=== PATIENT | female | born 1950 | race Caucasian/White ===

== ENCOUNTER → 2017-03-13 | Outpatient (CLI) | payer OTHER ==
[~2017-03-13] MED LIST: CALCTAB5 PO; CYM60 PO; DVN160125 PO; EZET10TA63 PO; MULT-506 PO
[2017-03-13 13:49] LABS: BLOOD UREA NITROGEN 12 mg/dl (7-18); CALCIUM 9.8 mg/dl (8.5-10.1); CARBON DIOXIDE 30 mmol/L (21-32); CHLORIDE 104 mmol/L (98-107); CREATININE 0.93 mg/dl (0.60-1.20); GLUCOSE 88 mg/dl (70-99); SODIUM 140 mmol/L (136-145)
== END | disposition home or self-care (01) ==
LOC: C.LABPBG 08:46
PROVIDERS: ATTEND Physician Assistant
DX: Z00.00 Encounter for general adult medical examination without abnormal findings (principal)

== ENCOUNTER → 2017-07-26 | Outpatient (CLI) | payer OTHER ==
[2017-07-26 16:42] LABS: HEMATOCRIT 41.3 % (37-47); HEMOGLOBIN 14.2 g/dL (12.0-16.0); MEAN CORPUSCULAR HEMOGLOBIN 31.6 pg (25-34); MEAN CORPUSCULAR HGB CONC 34.4 g/dl (32-36); MEAN PLATELET VOLUME 9.6 fL (7.4-10.4); PLATELET COUNT 169 K/uL (130-400); RED CELL DISTRIBUTION WIDTH CV 12.8 % (11.5-14.5); RED CELL DISTRIBUTION WIDTH SD 42.9 fL (36.4-46.3); WHITE BLOOD COUNT 5.16 K/uL (4.8-10.8)
[2017-07-26 16:56] LABS: ALT/SGPT 19 U/L (12-78); AST/SGOT 16 U/L (15-37); BLOOD UREA NITROGEN 10 mg/dl (7-18); CALCIUM 9.6 mg/dl (8.5-10.1); CARBON DIOXIDE 32 mmol/L (21-32); CREATININE 0.94 mg/dl (0.60-1.20); GLUCOSE 95 mg/dl (70-99); POTASSIUM 3.3 mmol/L (3.5-5.1); SODIUM 140 mmol/L (136-145)
[2017-07-26 17:01] LABS: ALKALINE PHOSPHATASE 51 U/L (45-117); CHOLESTEROL 185 mg/dl (0-200); LDL CHOLESTEROL CALCULATED 107 mg/dl; TOTAL PROTEIN 7.2 gm/dl (6.4-8.2); TRANSFERRIN 242 mg/dl (200-360)
== END | disposition home or self-care (01) ==
LOC: C.LABPBG 13:50
PROVIDERS: ATTEND Physician Assistant
DX: Z00.00 Encounter for general adult medical examination without abnormal findings (principal); D64.9 Anemia, unspecified

== ENCOUNTER 2017-08-14 18:49 | Emergency (ER) | payer OTHER ==
[~2017-08-14] VITALS: Ht 165.1 cm; Wt 74.2 kg
[~2017-08-14 18:49] MED LIST changes: -CEPH500C PO
[2017-08-14 18:54] VITALS: TEMP 36.7; Ht 165.1 cm; Wt 74.2 kg
[2017-08-14] MEDS ORDERED: OXYMETAZOLINE HCL 0.05% NA SPR 15 ML BTL ONE (19:08)
[2017-08-14] MEDS ORDERED: SILVER NITR/POTASSIUM NITRATE APPLICATOR ONE (19:41)
[2017-08-14] MEDS ORDERED: CEPHALEXIN MONOHYDRATE 250 MG CAP PO ONE (21:15)
[2017-08-14] MEDS ORDERED: CEPHALEXIN 500MG HOME PACK 1 EA BTL PO ONE (21:15)
--- NOTE | 2017-08-14 21:45 | EMERGENCY ROOM VISIT NOTE ---
History Report prepared by Farheen: Antonietta Redmond Under the Supervision of: Dr. Nini Molina D.O. First contact with patient: 18:58 Chief Complaint: NOSE BLEED (MINOR) Stated Complaint: NOSE BLEED FOR 2HOURS- COUMADIN PT History of Present Illness The patient is a 66 year old female who presents to the Emergency Room with complaints of persistent nosebleed starting 2 hours ago. The nosebleed is on the left side. This is her second nosebleed today. She has had nosebleeds in the past, but never this severely. She is having clots and blood is going down the back of her throat. She denies any nausea, headache, dizziness, lightheadedness, chest pain, or SOB. She is on Coumadin. Her outpatient INR today was therapeutic at 2.4. She has not been blowing her nose recently. She denies any previous nasal or sinus surgery. Source of History: patient Onset: 2 hours ago Position: nose Quality: other (bleed) Timing: other (persistent) Associated Symptoms: No headache, No chest pain, No SOB, No nausea Review of Systems See HPI for pertinent positives & negatives. A total of 10 systems reviewed and were otherwise negative. Past Medical & Surgical No previous nasal or sinus surgery. Family History No pertinent family history stated. Social History Smoking Status: Never Smoker Marital Status: Occupation Status: retired Current/Historical Medications Scheduled Calcium (Caltrate), 600 MG PO DAILY Cephalexin Monohydrate (Keflex), 500 MG PO QID Duloxetine Hcl (Cymbalta *), 60 MG PO DAILY Ezetimibe (Zetia), 10 MG PO DAILY Multivitamin (Multivitamin), 1 TAB PO DAILY Valsartan/Hctz (Diovan Hct 160MG/12.5MG *), 1 TAB PO DAILY Allergies Coded Allergies: No Known Allergies (Unverified Allergy, Mild, 10/19/06) Physical Exam Vital Signs Date Time Temp Pulse Resp B/P (MAP) Pulse Ox O2 Delivery O2 Flow Rate FiO2 08/15/17 02:00 82 16 98 08/15/17 01:38 156/100 08/15/17 00:30 183/95 08/15/17 00:01 61 16 188/94 97 Room Air 08/14/17 23:30 202/93 5/2/18 22:56 63 19 205/89 97 Room Air 08/14/17 22:30 221/103 08/14/17 22:16 208/96 08/14/17 21:56 75 18 217/93 99 Room Air 08/14/17 20:28 73 18 150/94 99 08/14/17 20:27 73 18 150/94 99 Room Air 08/14/17 18:54 36.7 86 18 144/88 97 Room Air Physical Exam GENERAL: alert, well appearing, well nourished, no distress, non-toxic EYE EXAM: normal conjunctiva, PERRL and EOM's grossly intact NOSE: When patient moved tissue there was a large fresh clot, small area of active bleeding along the medial nasal mucosa on the left, right naris was clear. OROPHARYNX: no exudate, no erythema, lips, buccal mucosa, and tongue normal and mucous membranes are moist LUNGS: Clear to auscultation. Normal chest wall mechanics HEART: no murmurs, S1 normal and S2 normal ABDOMEN: abdomen soft, non-tender, normo-active bowel sounds, no masses, no rebound or guarding. SKIN: no rashes and no bruising UPPER EXTREMITIES: upper extremities are grossly normal. LOWER EXTREMITIES: No pitting edema. NEURO EXAM: Normal sensorium, cranial nerves II-XII grossly intact, normal speech, no gross weakness of arms, no gross weakness of legs. Medical Decision & Procedures Medications Administered Medications (Trade) Dose Ordered Sig/Kit Route Start Time Stop Time Status Last Admin Dose Admin Silver Nitrate/ Potassium Nitrate (Silver Nitrate Applicators) 1 appl STK-MED ONCE .ROUTE 08/14/17 19:41 08/14/17 19:42 DC 08/14/17 19:56 1 APPL Cephalexin Monohydrate (Keflex Cap) 500 mg NOW ONCE PO 08/14/17 21:15 08/14/17 21:16 DC 08/14/17 21:40 500 MG Cephalexin Monohydrate (Keflex 500MG Home Pack) 1 homepack NOW ONCE PO 08/14/17 21:15 08/14/17 21:16 DC 08/14/17 21:41 1 HOMEPACK Acetaminophen (Tylenol Tab) 650 mg NOW STAT PO 08/14/17 22:46 08/14/17 22:47 DC 08/14/17 22:53 650 MG Lorazepam (Ativan Tab) 1 mg NOW STAT SL 08/14/17 23:32 08/14/17 23:33 DC 08/14/17 23:36 1 MG Ondansetron HCl (Zofran Odt) 4 mg ONE ONCE PO 08/15/17 00:15 08/15/17 00:16 DC 08/15/17 00:27 4 MG Acetaminophen/ Codeine Phosphate (Tylenol w/ Codeine #3 Tab) 1 tab NOW ONCE PO 08/15/17 02:00 08/15/17 02:01 DC 08/15/17 01:55 1 TAB Acetaminophen/ Codeine Phosphate (TYLENOL W/ CODEINE #3 Home Pack) 1 homepack UD ONCE PO 08/15/17 02:00 08/15/17 02:01 DC 08/15/17 01:55 1 HOMEPACK Procedure Anterior Nasal Packing, Rapid rhino Indication: persistent epistaxis Verbal consent obtained. Risks and benefits were explained with the usual customary discussion. A time out was taken. Clots were removed with suction. The left naris was prepped with Afrin and lidocaine. A 5.5-cm nasal balloon was placed in a standard fashion. Balloon inflated, not to maximum due to patient comfort. The patient tolerated this well. Hemostasis was achieved. No complications. ED Course 1901: The patient was evaluated in room A12B. A complete history and physical exam was performed. 1: I administered Afrin and applied nasal clamp. 1936: I reevaluated the patient. She still had a small anterior bleed. I used silver nitrate stick to cauterize and replaced clamp. 2029: Rapid rhino was placed according to the procedure note above. 2114: Keflex 500 mg 1 homepack PO, Keflex Cap 500 mg PO. 4: I reevaluated the patient. She is not having anymore bleeding. Pt will be discharged. 8: I reevaluated the patient. She is having some oozing again after getting up to use the bathroom at discharge. 5: I put a little more air into the balloon. She is no longer bleeding. 2246: Acetaminophen 650 mg PO. 2332: Ativan Tab 1 mg SL. 0015: Zofran Odt 4 mg PO. 0052: No recurrent bleeding. Pt resting. BP still elevated. Medical Decision Differential diagnosis: Etiologies such as anterior epistaxis, coagulopathy, traumatic injury, fracture , septal hematoma, posterior epistaxis as well as other pathologies were entertained. Patient with underlying history of anxiety, and after placement of nasal packing , her level of anxiety and subsequently her blood pressure increased dramatically. Patient had no vomiting, no chest pain, trouble breathing. Patient did note a sense of pressure in the left side of the nose and left face , likely secondary to her packing. Balloon initially inflated to the level of patient comfort, however upon rebleed, 1 mL of additional air was added. This seemed to help provide additional tamponade stop the bleeding. Patient continued to have anxiety regarding going home with the packing in and following up with ENT in the office. Following of this patient had slight nausea however no vomiting. Was given a dose of Zofran which helped. Patient was started on first dose of Keflex. Of note her niece stated that she had not had anything to eat or drink for several hours and she feels this may be extruding to the nausea. Patient offered anxiolytic which she initially refused , however given persistence of symptoms, she subsequently was agreeable and requested this. Patient allowed to rest following administration of Ativan. Patient's blood pressure ultimately improved following rest administration of Ativan. 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 Discussed symptoms to watch and return for including but not limited to recurrent bleeding, worsening headache, vomiting, dizziness, vision changes, trouble breathing, chest pain, she verbalized understanding was agreeable with plan. Patient well-appearing time of discharge, ambulating with a steady gait, tolerating sips of p.o. I do not suspect hypertensive urgency/emergency, feel her blood pressure secondary to increased anxiety which she has a baseline which was escalated by situation this evening and ultimately by placement of packing. Medication Reconcilliation Current Medication List: was personally reviewed by me Blood Pressure Screening Patient's blood pressure: Elevated blood pressure Blood pressure disposition: Referred to PCP Impression Primary Impression: Epistaxis Additional Impression: Anticoagulated on Coumadin Scribe Attestation The scribe's documentation has been prepared under my direction and personally reviewed by me in its entirety. I confirm that the note above accurately reflects all work, treatment, procedures, and medical decision making performed by me. Departure Information Dispostion Home / Self-Care Prescriptions Cephalexin Monohydrate (Keflex) 500 Mg Cap 500 MG PO QID, #28 CAP Prov: Nini Molina, 08/14/17 Referrals Cecelia Paulson DO (PCP) Patient Instructions My [facility] Additional Instructions Please take the antibiotic as prescribed until you see the ear nose and throat doctor and they remove the packing. Please continue your regular medications including your blood thinner as prescribed. You may eat and drink normally. You may otherwise perform normal activities. Please call Dr. Xie's office first thing in the morning to schedule an appointment for follow-up. Please tell them you were seen in the emergency room department tonight. Problem Qualifiers
[2017-08-14] MEDS ORDERED: CEPH500C PO (21:46)
[2017-08-14] MEDS ORDERED: ACETAMINOPHEN 325 MG TAB PO STA (22:46)
[2017-08-14] MEDS ORDERED: LORAZEPAM 1 MG TAB SL STA (23:32)
[2017-08-15] MEDS ORDERED: ONDANSETRON 4MG OD TAB PO ONE (00:15)
[2017-08-15 01:38] VITALS: BP 156/100
[2017-08-15 02:00] VITALS: PULSE 82; O2SAT 98
[2017-08-15] MEDS ORDERED: ACETAMINOPHEN/CODEINE 300/30MG TAB PO ONE (02:00)
[2017-08-15] MEDS ORDERED: TYLENOL #3 HOME PACK PO ONE (02:00)
== END 2017-08-15 02:00 | disposition home or self-care (01) ==
LOC: C.EDB 18:51 → C.EDA 08-15 02:00
DX: R04.0 Epistaxis (principal); Z79.899 Other long term (current) drug therapy; Z79.01 Long term (current) use of anticoagulants

== ENCOUNTER → 2017-08-14 | Outpatient (CLI) | payer OTHER ==
[~2017-08-14] MED LIST changes: +CEPH500C PO
[2017-08-14 17:16] LABS: BLOOD UREA NITROGEN 16 mg/dl (7-18); CALCIUM 10.4 mg/dl (8.5-10.1); CARBON DIOXIDE 29 mmol/L (21-32); CREATININE 0.92 mg/dl (0.60-1.20); GLUCOSE 87 mg/dl (70-99); SODIUM 142 mmol/L (136-145)
== END | disposition home or self-care (01) ==
LOC: C.LABPBG 13:18
PROVIDERS: ATTEND Physician Assistant
DX: E87.6 Hypokalemia (principal)

== ENCOUNTER 2017-09-06 08:48 | Emergency (ER) | payer OTHER ==
[~2017-09-06 08:48] MED LIST changes: +CEPH500C PO
[2017-09-06] MEDS ORDERED: OXYMETAZOLINE HCL 0.05% NA SPR 15 ML BTL ONE (08:54)
--- NOTE | 2017-09-06 09:08 | EMERGENCY ROOM VISIT NOTE ---
History Report prepared by Farheen: Collin Kelley Under the Supervision of: Dr. Joshua Steven M.D. First contact with patient: 08:58 Chief Complaint: NOSE BLEED (MINOR) Stated Complaint: NOSE BLEED History of Present Illness The patient is a 66 year old female who presents to the Emergency Room with complaints of constant nosebleed from the left nostril beginning two hours ago. The patient states she was not doing anything specific when her nose started bleeding, and it was sudden. She reports it has not slowed down. The patient notes she had similar symptoms a few weeks ago. She states she is still on Coumadin, and her last Coumadin level was above 2.0. Source of History: patient Onset: 2 hours ago Position: nose Quality: other (bleeding) Timing: constant Review of Systems See HPI for pertinent positives and negatives. A total of ten systems were reviewed and were otherwise negative. Past Medical & Surgical Medical Problems: (1) DVT (deep venous thrombosis) (2) Pulmonary embolism Family History Heart disease Hypertension Social History Smoking Status: Never Smoker Marital Status: Housing Status: lives alone Occupation Status: retired Current/Historical Medications Scheduled Amoxicillin & Pot Clavulanate (Augmentin 875-125 mg), 875 MG PO BID Ascorbic Acid (Vitamin C), 1,000 MG PO DAILY Calcium Carbonate (Caltrate 600), 1 TAB PO DAILY Duloxetine HCl (Duloxetine HCl), 40 MG PO DAILY Multivitamin (Multivitamin), 1 TAB PO DAILY Warfarin Sod (Jantoven), 2.5 MG PO 5XWK Warfarin Sod (Jantoven), 5 MG PO 2XWK Allergies Coded Allergies: No Known Allergies (Unverified , 09/06/17) Physical Exam Vital Signs Date Time Temp Pulse Resp B/P (MAP) Pulse Ox O2 Delivery O2 Flow Rate FiO2 09/06/17 13:55 67 16 184/107 97 09/06/17 12:57 73 16 159/112 97 Room Air 09/06/17 11:14 86 16 178/83 98 Room Air 09/06/17 10:34 80 16 194/111 100 Room Air 09/06/17 09:10 36.7 09/06/17 08:55 86 20 172/98 98 Room Air Physical Exam Physical Exam GENERAL: She is oriented to person, place, and time. She appears well- developed and well-nourished. She does not appear distressed. ____ HENT: Exam performed. Head: Normocephalic and atraumatic. Right Ear: External ear normal. No mastoid tenderness. Left Ear: External ear normal. No mastoid tenderness. Mouth/Throat: The oropharynx is clear and moist. No trismus in the jaw. No dental abscesses or uvula swelling. No oropharyngeal exudate or tonsillar abscesses. - Nose: Bleeding from the left nares.____ EYES: Conjunctivae and EOM are normal. Pupils are equal, round, and reactive to light. Right eye exhibits no discharge. Left eye exhibits no discharge. No scleral icterus. ____ NECK: Normal range of motion. Neck supple. No JVD present. No spinous process tenderness present. No carotid bruit present. No rigidity. No tracheal deviation and normal range of motion present. No Brudzinski's sign and no Kernig 's sign noted. ____ CV: Normal rate, regular rhythm, normal heart sounds and intact distal pulses. There is no peripheral edema. Palpable radial pulses bue. ____ PULM/CHEST: Effort normal and breath sounds normal. No respiratory distress. No stridor. She has no wheezes. She has no rales. Chest Wall: She exhibits no tenderness. ____ ABD: The abdomen is soft. Bowel sounds are normal. She has no distension. No mass is present. There is no tenderness. There is no rebound, no guarding, no Banerjee's sign and no tenderness at McBurney's point. Rovsig negative MUSC/SKEL: Normal range of motion. There is no peripheral edema, tenderness or deformity. LYMPH: No cervical adenopathy. ____ NEURO: She is alert and oriented to person, place, and time. She has normal strength. No cranial nerve deficit or sensory deficit. Coordination and gait normal. GCS eye subscore is 4. GCS verbal subscore is 5. GCS motor subscore is 6. Cerebellar tests wnl. ____ SKIN: Skin is warm and dry. She is not diaphoretic. ____ PSYCH: She has a normal mood and affect. Her behavior is normal. Judgment and thought content normal. ____ Medical Decision & Procedures Laboratory Results 09/06/17 12:47 Red Blood Count 4.26, Mean Corpuscular Volume 94.1, Mean Corpuscular Hemoglobin 32.2, Mean Corpuscular Hemoglobin Concent 34.2, Mean Platelet Volume 8.8, Neutrophils (%) (Auto) 81.6, Lymphocytes (%) (Auto) 12.7, Monocytes (%) (Auto) 4.9, Eosinophils (%) (Auto) 0.6, Basophils (%) (Auto) 0.1, Neutrophils # (Auto) 7.05, Lymphocytes # (Auto) 1.10, Monocytes # (Auto) 0.42, Eosinophils # (Auto) 0.05, Basophils # (Auto) 0.01 Test 09/06/17 09:07 09/06/17 12:47 Prothrombin Time 30.4 SECONDS (9.0-12.0) Prothromb Time International Ratio 3.0 (0.9-1.1) White Blood Count 8.64 K/uL (4.8-10.8) Red Blood Count 4.26 M/uL (4.2-5.4) Hemoglobin 13.7 g/dL (12.0-16.0) Hematocrit 40.1 % (37-47) Mean Corpuscular Volume 94.1 fL (80-100) Mean Corpuscular Hemoglobin 32.2 pg (25-34) Mean Corpuscular Hemoglobin Concent 34.2 g/dl (32-36) Platelet Count 178 K/uL (130-400) Mean Platelet Volume 8.8 fL (7.4-10.4) Neutrophils (%) (Auto) 81.6 % Lymphocytes (%) (Auto) 12.7 % Monocytes (%) (Auto) 4.9 % Eosinophils (%) (Auto) 0.6 % Basophils (%) (Auto) 0.1 % Neutrophils # (Auto) 7.05 K/uL (1.4-6.5) Lymphocytes # (Auto) 1.10 K/uL (1.2-3.4) Monocytes # (Auto) 0.42 K/uL (0.11-0.59) Eosinophils # (Auto) 0.05 K/uL (0-0.5) Basophils # (Auto) 0.01 K/uL (0-0.2) RDW Standard Deviation 45.4 fL (36.4-46.3) RDW Coefficient of Variation 13.2 % (11.5-14.5) Immature Granulocyte % (Auto) 0.1 % Immature Granulocyte # (Auto) 0.01 K/uL (0.00-0.02) Laboratory results reviewed by me Medications Administered Medications (Trade) Dose Ordered Sig/Kit Route Start Time Stop Time Status Last Admin Dose Admin Oxymetazoline HCl (Afrin 0.05% Nasal [place]) 75 sprays STK-MED ONCE .ROUTE 09/06/17 08:54 09/06/17 08:55 DC 09/06/17 08:54 2 SPRAYS Ondansetron HCl (Zofran Odt) 4 mg ONE ONCE PO 09/06/17 13:00 09/06/17 13:01 DC 09/06/17 13:03 4 MG Phytonadione (Mephyton Tab) 5 mg NOW STAT PO 09/06/17 13:25 09/06/17 13:27 DC 09/06/17 13:53 5 MG Acetaminophen (Tylenol Tab) 1,000 mg NOW STAT PO 09/06/17 13:43 09/06/17 13:44 DC 09/06/17 13:53 1,000 MG Procedure Anterior Nasal Packing Indication: Epistaxis Verbal consent obtained. Risks and benefits were explained with the usual customary discussion. A time out was taken. Clots were removed with suction. The L naris was prepped with Afrin and lidocaine. A 5 cm Merocel was placed in a standard fashion. The patient tolerated this well. Hemostasis was achieved. No complications. Anterior Nasal Packing Indication: Epistaxis Verbal consent obtained. Risks and benefits were explained with the usual customary discussion. A time out was taken. Clots were removed with suction. The L naris was prepped. A 7.5 cm Rapid Rhino was placed in a standard fashion. The patient tolerated this well. Hemostasis was achieved. No complications. ED Course 0900: The patient was evaluated in room A11B. A complete history and physical exam was performed. Afrin nasal spray was applied and direct pressure was applied to the left nare by the patient. Review of EMR states the patient was here on August 14. The patient had to have a rapid rhino place, and she is currently on Coumadin. 0919: I reevaluated the patient, and she is still bleeding from her left anterior naris. 0924: I inserted a pledget soaked in lidocaine and epinephrine into the patient' s left naris. 0958: The patient is still bleeding. The TXA pledget replaced the lidocaine and epinephrine pledget. 1039: Upon reevaluation, the patient is still bleeding after the TXA pledget. An anterior nasal packing Merocel was placed. 1115: I reevaluated the patient. Her bleeding has stopped after the Merocel tamponade. She tolerated PO. 1158:Now she feels blood is coming out of her right side and going down her throat. 1201: I paged ENT. 1221: The patient's contralateral naris is bleeding with mild blood in the posterior oropharynx. I took out the Merocel and put in a 7.5cm rapid rhino. I am waiting for ENT to call me back. 1232: Dr. Xie's nurse took a report and said he should call back around 1300. 1247: Dr. Xie's office called back and requested I contact the on-call ENT physician. 1248: I discussed the patient's case with Dr. Tay, ENT. He suggested I wait another 20 minutes and then call him back if she is still bleeding after the placement of the 7.5cm rapid rhino. 1300: Ordered Ondansetron HCl 4mg PO 1324: I discussed the patient's case with Dr. Paulson, pt's PCP. She is okay with the patient receiving Vitamin K and holding her Coumadin until Saturday. Patient states she feels so the bleeding controlled with the rapid Rhino. 1325: Ordered Phytonadione 5mg PO 1342: I spoke with Dr. Tay again. I updated him about how the patient's bleeding stopped. He agrees with the treatment plan. 1343: Ordered Acetaminophen 1000mg PO 1351: I reevaluated the patient. The patient's bleeding from the left and right near her resolved. She no longer feels like any blood is in her throat. On exam, no blood in the posterior pharynx. Patient was discharged with prescription antibiotics due to nasal packing. Patient was instructed not take her Coumadin until Saturday, she and family at bedside verbalized agreement and understanding. DISCHARGE - Plan of care discussed with patient and questions answered. The patient was given both verbal and printed discharge instructions. The patient verbalized understanding and ability to comply. The patient is to seek outpatient follow up as noted in the discharge instructions. The patient verbalized understanding and ability to comply. The patient is discharged in stable condition. The patient was instructed to return for worsening symptoms. Medical Decision 0900: The patient was evaluated in room A11B. A complete history and physical exam was performed. Afrin nasal spray was applied and direct pressure was applied to the left nare by the patient. Review of EMR states the patient was here on August 14. The patient had to have a rapid rhino place, and she is currently on Coumadin. 19: I reevaluated the patient, and she is still bleeding from her left anterior naris. 24: I inserted a pledget soaked in lidocaine and epinephrine into the patient' s left naris. 0958: The patient is still bleeding. The TXA pledget replaced the lidocaine and epinephrine pledget. 1039: Upon reevaluation, the patient is still bleeding after the TXA pledget. An anterior nasal packing Merocel was placed. 1115: I reevaluated the patient. Her bleeding has stopped after the Merocel tamponade. She tolerated PO. 1158:Now she feels blood is coming out of her right side and going down her throat. 1201: I paged ENT. 1221: The patient's contralateral naris is bleeding with mild blood in the posterior oropharynx. I took out the Merocel and put in a 7.5cm rapid rhino. I am waiting for ENT to call me back. 1232: Dr. Xie's nurse took a report and said he should call back around 1300. 1247: Dr. Xie's office called back and requested I contact the on-call ENT physician. 1248: I discussed the patient's case with Dr. Tay, ENT. He suggested I wait another 20 minutes and then call him back if she is still bleeding after the placement of the 7.5cm rapid rhino. 1300: Ordered Ondansetron HCl 4mg PO 1324: I discussed the patient's case with Dr. Paulson pt's PCP. She is okay with the patient receiving Vitamin K and holding her Coumadin until Saturday. Patient states she feels so the bleeding controlled with the rapid Rhino. 1325: Ordered Phytonadione 5mg PO 1342: I spoke with Dr. Tay again. I updated him about how the patient's bleeding stopped. He agrees with the treatment plan. 1343: Ordered Acetaminophen 1000mg PO 1351: I reevaluated the patient. The patient's bleeding from the left and right near her resolved. She no longer feels like any blood is in her throat. On exam, no blood in the posterior pharynx. Patient was discharged with prescription antibiotics due to nasal packing. Patient was instructed not take her Coumadin until Saturday, she and family at bedside verbalized agreement and understanding. DISCHARGE - Plan of care discussed with patient and questions answered. The patient was given both verbal and printed discharge instructions. The patient verbalized understanding and ability to comply. The patient is to seek outpatient follow up as noted in the discharge instructions. The patient verbalized understanding and ability to comply. The patient is discharged in stable condition. The patient was instructed to return for worsening symptoms. Medication Reconcilliation Current Medication List: was personally reviewed by me Blood Pressure Screening Patient's blood pressure: Elevated blood pressure Blood pressure disposition: Referred to PCP Consults Time Called: 1247 Consulting Physician: Dr. Tay ENT Returned Call: 1246 I discussed the patient's case with JOYCE Garcias. He suggested I wait another 20 minutes and then call him back if she is still bleeding after the placement of the 7.5cm rapid rhino. 1342: I spoke with Dr. Tay again. I updated him about how the patient's bleeding stopped. He agrees with the treatment plan. Additional Consults: Time Called: 1311 Consulted Physician: Dr. Paulson, pt's PCP Returned Call: 1322 Additional Comments: I discussed the patient's case with Dr. Paulson, pt's PCP. She is okay with the patient receiving Vitamin K and holding her Coumadin until Saturday. Impression Primary Impression: Epistaxis Scribe Attestation The scribe's documentation has been prepared under my direction and personally reviewed by me in its entirety. I confirm that the note above accurately reflects all work, treatment, procedures, and medical decision making performed by me. The chart was completed utilizing [employer] Speech voice recognition software. Grammatical errors, random word insertions, pronoun errors, and incomplete sentences are an occasional consequence of this system due to software limitations, ambient noise, and hardware issues. Any formal questions or concerns about the content, text, or information contained within the body of this dictation should be directly addressed to the physician for clarification. Departure Information Dispostion Home / Self-Care Prescriptions Amoxicillin & Pot Clavulanate (Augmentin 875-125 mg) 1 Tab Tab 875 MG PO BID for 7 Days, #14 TAB Prov: Joshua Steven M.D. 09/06/17 Referrals Cecelia Paulson DO (PCP) Forms HOME CARE DOCUMENTATION FORM, IMPORTANT VISIT INFORMATION, WORK / SCHOOL INSTRUCTIONS Patient Instructions ED Nosebleed, [facility] Additional Instructions Return to the emergency department if you develop difficulty swallowing, your epistaxis recurs, difficulty breathing, or fever greater than 100.4. Hold off on taking your Coumadin until Saturday, restart Coumadin as normal on Saturday
[2017-09-06 09:10] VITALS: TEMP 36.7
[2017-09-06 09:27] LABS: HEMATOCRIT 41.2 % (37-47); HEMOGLOBIN 14.1 g/dL (12.0-16.0)
[2017-09-06] MEDS ORDERED: LIDOCAINE/EPINEPHRINE 1% 20 ML VIAL INFIL ONE (09:30)
[2017-09-06] MEDS ORDERED: TRANEXAMIC ACID 100 MG/ML 10 ML AMP ONE (09:58)
[2017-09-06] MEDS ORDERED: CALCTAB5 PO (10:55)
[2017-09-06] MEDS ORDERED: ASCO10003 PO (10:55)
[2017-09-06] MEDS ORDERED: WARF2.5T8 PO ×2 (10:55)
[2017-09-06] MEDS ORDERED: DULO-76 PO (10:55)
[2017-09-06] MEDS ORDERED: AMOX875T PO (11:58)
[2017-09-06 12:54] LABS: BASO % 0.1 %; BASO ABS # 0.01 K/uL (0-0.2); EOS % 0.6 %; EOS ABS # 0.05 K/uL (0-0.5); HEMATOCRIT 40.1 % (37-47); HEMOGLOBIN 13.7 g/dL (12.0-16.0); IG# 0.01 K/uL (0.00-0.02); LYMPH % 12.7 %; MEAN CELL VOLUME 94.1 fL (80-100); MEAN CORPUSCULAR HEMOGLOBIN 32.2 pg (25-34); MEAN CORPUSCULAR HGB CONC 34.2 g/dl (32-36); MEAN PLATELET VOLUME 8.8 fL (7.4-10.4); MONO % 4.9 %; MONO ABS # 0.42 K/uL (0.11-0.59); NEUT % 81.6 %; NEUT ABS # 7.05 K/uL (1.4-6.5); PLATELET COUNT 178 K/uL (130-400); RED CELL DISTRIBUTION WIDTH CV 13.2 % (11.5-14.5); RED CELL DISTRIBUTION WIDTH SD 45.4 fL (36.4-46.3); WHITE BLOOD COUNT 8.64 K/uL (4.8-10.8)
[2017-09-06] MEDS ORDERED: ONDANSETRON 4MG OD TAB PO ONE (13:00)
[2017-09-06] MEDS ORDERED: PHYTONADIONE 5 MG TAB PO STA (13:25)
[2017-09-06] MEDS ORDERED: ACETAMINOPHEN 500 MG TAB PO STA (13:43)
[2017-09-06 13:55] VITALS: BP 184/107; PULSE 67; O2SAT 97
[2017-09-07] MEDS ORDERED: TRANEXAMIC ACID INJ 1,000 MG in SODIUM CHLORIDE 0.9% 100ML 100 ML TOP SCH (06:00)
== END 2017-09-06 13:55 | disposition home or self-care (01) ==
LOC: C.EDB 08:49 → C.EDA 13:55
DX: R04.0 Epistaxis (principal); Z79.01 Long term (current) use of anticoagulants; Z51.81 Encounter for therapeutic drug level monitoring

== ENCOUNTER → 2017-10-31 | Outpatient (CLI) | payer OTHER ==
[~2017-10-31] MED LIST changes: +ASCO10003 PO; -CEPH500C PO; -CYM60 PO; +DULO-76 PO; -DVN160125 PO; -EZET10TA63 PO; +WARF2.5T8 PO
[2017-10-31 17:12] LABS: BLOOD UREA NITROGEN 19 mg/dl (7-18); CALCIUM 9.6 mg/dl (8.5-10.1); CARBON DIOXIDE 32 mmol/L (21-32); GLUCOSE 76 mg/dl (70-99); POTASSIUM 3.6 mmol/L (3.5-5.1); SODIUM 141 mmol/L (136-145)
== END | disposition home or self-care (01) ==
LOC: C.LABPBG 13:20
PROVIDERS: ATTEND Family Medicine
DX: I10 Essential (primary) hypertension (principal)

== ENCOUNTER 2020-02-14 17:25 | Observation (INO) ==
--- NOTE | 2020-02-14 17:48 | Emergency Department Note ---
History of Present Illness General Chief complaint: Leg Weakness, Bilateral Stated complaint: POSSIBLY LOW POTASSIUM,LEG WEEKNESS Time Seen by Provider: 02/14/20 17:32 Source: patient and family Mode of arrival: ambulatory Limitations: no limitations History of Present Illness Provider complaint: Weakness, palpitations Onset (ago): week(s) 1 Location: chest and lower extremity Radiation: non-radiation Severity: moderate and similar to prior episodes Pain Consistency: + constant Relieved By: + none Exacerbated By: + movement Associated symptoms: + headaches, + nausea/vomiting, + shortness of breath and + weakness; no chest pain, no cough, no diaphoresis, no fever/chills, no loss of appetite and no syncope Treatments prior to arrival: none This is a 69-year-old female presents the emergency department complaining of 1 week of increasing weakness, mostly in the lower extremities as well as palpitations. Patient states this feels similar to when she has had low potassium previously. Patient states she notices the symptoms more with exertion that she feels weaker, develops a sense of racing heart, develops slight shortness of breath, and if she persists feels as though she may pass out. Patient states the symptoms get better when she sits down. Patient states she has had low potassium 3-4 times in the past with similar symptoms, although no one has given her clear indication of as to why. Patient denies any change in medications or diet, denies any history of kidney problems. Patient states she is eating and drinking normally. Patient denies any falls or trauma. Patient states she does frequently have loose stools/diarrhea. She denies that anyone had ever thought her low potassium could be related to this. Patient denies any fevers or chills, cough or cold symptoms, denies any sick contacts or exposure to coronavirus. Patient's family at bedside states she did seem slightly confused earlier today which is uncharacteristic of her prior episodes. Pt seen during a time of high acuity and national emergency pandemic while wearing PPE. Home Medications Home Medications Medication Instructions Recorded Confirmed Type duloxetine 60 mg capsule,delayed 60 mg PO QAM 03/06/19 02/14/20 History release famotidine 20 mg tablet 20 mg PO BID tab 03/06/19 02/14/20 History lorazepam 0.5 mg tablet 0.5 mg PO DAILY PRN #30 tab 05/28/19 02/14/20 Rx Calcium 600 + D(3) 1 cap PO BID 06/22/19 02/14/20 History losartan 100 mg tablet 100 mg PO DAILY #90 tab 12/11/19 02/14/20 Rx amlodipine 5 mg tablet 5 mg PO DAILY #90 tab 01/07/20 02/14/20 Rx potassium gluconate 595 mg PO DAILY 02/14/20 02/14/20 History warfarin 2.5 mg PO [id number] 02/14/20 02/16/20 History warfarin 5 mg PO WK 02/14/20 02/16/20 History ferrous sulfate 325 mg PO DAILY #30 tab 02/16/20 Rx hydrocortisone acetate [Anusol-HC] 25 mg AL BID 7 Days #24 ea 02/16/20 Rx Allergies Allergy/AdvReac Type Severity Reaction Status Date / Time No Known Drug Allergies Allergy Verified 02/16/20 14:35 Past Med/Surg History Medical History Acid reflux Anemia Anxiety Benign essential hypertension Chronic anticoagulation Depression Gallstones History of blood clots History of deep vein thrombosis (DVT) of lower extremity (06/2019) RLE Hyperlipidemia Surgical History H/O section History of small bowel obstruction (2008) Hx of breast reduction, elective (2011) Hx of hysterectomy (1991) S/P cataract extraction (12/2019) b/l eyes Family History Mother Cardiac disorder Hypertension Myocardial infarction Heart disease Grandmother Breast cancer Cancer Father Myocardial infarction Hypertension Heart disease Denies family history of Ovarian cancer Prostate cancer Colorectal cancer Social History Smoking Status: Unknown if ever smoked Second Hand Exposure: No; Hx Alcohol Use: No Hx Substance Use: No Preferred Language: Montenegrin Communication Ability: Effective Visual Impairment: No Limitations Hearing Ability: Normal Vegetable Worker Required: No Beliefs That Will Affect Care: None marital status: / Current Living Situation: Family current occupational status: retired Feels Safe at Home: Yes Childhood Exposure to Second-Hand Smoke: No caffeine: Yes (Coffee 1 cup per day. Tea x 2 cups per day.) during the past year weight has: remained stable Dental Care, Regularly: Yes Physical Activity Frequency: 1-2 Times per Week Seatbelt Use: always Sunscreen Use: Yes Assistive Devices: None Review of Systems See HPI for pertinent positives & negatives. and A total of 10 systems reviewed and were otherwise negative Physical Exam Vital Signs Vital Signs - 24 hr 02/14/20 17:29 02/14/20 18:08 02/14/20 18:30 Temperature 36.5 C Temperature Source Oral Pulse Rate 88 87 Pulse Rate [Apical] 76 Pulse Rate [Exercises] Pulse Rate [Recovery] Pulse Rate [Resting] Pulse Rate from SpO2 Sensor 83 Respiratory Rate 20 20 20 Respiratory Effort / Characteristics Non-Labored Spontaneous Respiratory Depth Normal Blood Pressure 154/80 H 130/84 Blood Pressure [Right Arm] 158/88 H Blood Pressure Mean 104 99 Blood Pressure Mean [Right Arm] 111 Blood Pressure Position Sitting Pulse Oximetry 99 99 99 Pulse Oximetry [Exercises] Pulse Oximetry [Recovery] Pulse Oximetry [Resting] Oxygen Delivery Method Room Air Room Air Room Air Sepsis Recent Fever Within 48 Hours No Sepsis New/Unexplained Change in Mental Status N/A Sepsis Action Taken by Nursing No Action Required 02/14/20 19:40 Temperature Temperature Source Pulse Rate Pulse Rate [Apical] Pulse Rate [Exercises] 90 Pulse Rate [Recovery] 84 Pulse Rate [Resting] 88 Pulse Rate from SpO2 Sensor Respiratory Rate Respiratory Effort / Characteristics Respiratory Depth Blood Pressure Blood Pressure [Right Arm] Blood Pressure Mean Blood Pressure Mean [Right Arm] Blood Pressure Position Pulse Oximetry Pulse Oximetry [Exercises] 92 Pulse Oximetry [Recovery] 96 Pulse Oximetry [Resting] 98 Oxygen Delivery Method Room Air Sepsis Recent Fever Within 48 Hours Sepsis New/Unexplained Change in Mental Status Sepsis Action Taken by Nursing GENERAL: alert, well appearing, well nourished, no distress, non-toxic EYE EXAM: normal conjunctiva, PERRL and EOM's grossly intact, no nystagmus OROPHARYNX: no exudate, no erythema, lips, buccal mucosa, and tongue normal and mucous membranes are moist NECK: supple, no nuchal rigidity, no adenopathy, non-tender LUNGS: Clear to auscultation. Normal chest wall mechanics, no w/r/r HEART: no murmurs, S1 normal and S2 normal ABDOMEN: abdomen soft, non-tender, normo-active bowel sounds, no masses, no rebound or guarding. BACK: Back is symmetrical on inspection and there is no deformity, no midline tenderness, no CVA tenderness. SKIN: no rashes and no bruising, no petechiae UPPER EXTREMITIES: upper extremities are grossly normal. FROM, nml pulses b/l. LOWER EXTREMITIES: No pitting edema. FROM, nml pulses b/l. NEURO EXAM: Normal sensorium, cranial nerves II-XII grossly intact, normal speech, no gross weakness of arms, no gross weakness of legs. No ataxia. No facial droop. Gross sensation intact. Course Course 1929: Pt update on all results. We did discuss her drop in hemoglobin compared to June. Patient states her last colonoscopy was in 2018. Patient states she was told she has diverticulosis and hemorrhoids. Patient states she frequently sees blood with her bowel movements. Patient states her last colonoscopy was performed in [place]. In discussing cardiac history, patient states she has never had a heart attack, however states she did have heart testing done including a stress test approximately 4 to 5 years ago. States this was done in [place] also. 1951: On ambulatory testing, patient appears slightly weakened, oxygen saturations dropped to 91/92%, patient not markedly tachypneic or tachycardic. Oxygen recovers with rest. Patient states she feels very weak and unsteady with ambulatory trial. 2001: Discussed additional results with patient and discussed how she fell during ambulatory trial. Discussed concern for cardiac etiology given e xertional shortness of breath and palpitations although I feel her anemia could be playing a role. We did discuss symptomatic anemia given drop noted since July and ongoing blood loss in the setting of anticoagulation. While patient is hypokalemic, I do not feel that is the primary culprit of all of her complaints. Patient otherwise hemodynamically stable at rest. Family at bedside also concerned due to increased confusion today which is new for her. It is possible that her hypokalemia is secondary to GI loss or her hydrochlorothiazide. Administered Medications Acetaminophen (Acetaminophen 325 Mg Tab) 650 mg PO Q4H PRN PRN Reason: Pain or Fever Stop: 03/16/20 00:46 Last Admin: 02/15/20 18:05 Dose: 650 mg Documented by: [id number] Amlodipine Besylate (Amlodipine Besylate 5 Mg Tab) 5 mg PO DAILY ALFRED Stop: 03/16/20 08:59 Last Admin: 02/16/20 07:53 Dose: 5 mg Documented by: [id number] Admin: 02/15/20 07:30 Dose: 5 mg Documented by: [id number] Duloxetine HCl (Duloxetine Hcl 60 Mg Cap) 60 mg PO QAM ALFRED Stop: 03/16/20 08:59 Last Admin: 02/16/20 07:52 Dose: 60 mg Documented by: [id number] Admin: 02/15/20 07:29 Dose: 60 mg Documented by: [id number] Famotidine (Famotidine 20 Mg Tab) 20 mg PO BID ALFRED Stop: 03/16/20 08:59 Last Admin: 02/16/20 07:53 Dose: 20 mg Documented by: [id number] Admin: 02/15/20 20:14 Dose: 20 mg Documented by: [id number] Admin: 02/15/20 07:30 Dose: 20 mg Documented by: [id number] Hydrochlorothiazide (Hydrochlorothiazide 25 Mg Tab) 12.5 mg PO DAILY ALFRED Stop: 03/16/20 08:59 Last Admin: 02/15/20 07:29 Dose: 12.5 mg Documented by: [id number] Potassium Chloride/Sodium Chloride (Normal Saline W/20 Meq Kcl) 20 meq in 1,000 mls @ 100 mls/hr IV .Q10H ALFRED Stop: 03/16/20 00:46 Last Admin: 02/16/20 17:37 Dose: Not Given Documented by: [id number] Infusion: 02/16/20 17:36 Dose: 0 mls/hr Documented by: [id number] Infusion: 02/16/20 14:43 Dose: 0 mls/hr Documented by: [id number] Admin: 02/16/20 09:30 Dose: 100 mls/hr Documented by: [id number] Infusion: 02/16/20 07:46 Dose: 100 mls/hr Documented by: [id number] Admin: 02/15/20 21:46 Dose: 100 mls/hr Documented by: [id number] Infusion: 02/15/20 21:46 Dose: 100 mls/hr Documented by: [id number] Admin: 02/15/20 11:54 Dose: 100 mls/hr Documented by: [id number] Infusion: 02/15/20 11:37 Dose: 100 mls/hr Documented by: [id number] Admin: 02/15/20 01:37 Dose: 100 mls/hr Documented by: [id number] Lorazepam (Lorazepam 0.5 Mg Tab) 0.5 mg PO DAILY PRN PRN Reason: anxiety Stop: 03/16/20 00:46 Last Admin: 02/16/20 07:53 Dose: 0.5 mg Documented by: [id number] Losartan Potassium (Losartan Potassium 50 Mg Tab) 100 mg PO DAILY ALFRED Stop: 03/16/20 08:59 Last Admin: 02/16/20 07:52 Dose: 100 mg Documented by: [id number] Admin: 02/15/20 07:29 Dose: 100 mg Documented by: [id number] Pantoprazole Sodium (Pantoprazole 40 Mg Tab) 40 mg PO BID ALFRED Stop: 03/16/20 00:46 Last Admin: 02/16/20 07:53 Dose: 40 mg Documented by: [id number] Admin: 02/15/20 20:14 Dose: 40 mg Documented by: [id number] Admin: 02/15/20 07:30 Dose: 40 mg Documented by: [id number] Admin: 02/15/20 01:34 Dose: 40 mg Documented by: [id number] Polyethylene Glycol/Electrolytes (Lavage Solution 4000ml) 8 dose PO 0700,1800 [facility] Stop: 03/16/20 17:59 Last Admin: 02/16/20 17:34 Dose: Not Given Documented by: [id number] Admin: 02/16/20 06:21 Dose: 8 dose Documented by: [id number] Admin: 02/15/20 18:34 Dose: 8 dose Documented by: [id number] Discontinued Medications Sodium Chloride (Nss 1000ml) 1,000 mls @ 250 mls/hr IV .Q4H ALFRED Stop: 03/15/20 17:44 Last Admin: 02/15/20 01:08 Dose: Not Given Documented by: [id number] Infusion: 02/14/20 22:57 Dose: 0 mls/hr Documented by: [id number] Admin: 02/14/20 18:45 Dose: 250 mls/hr Documented by: [id number] Potassium Chloride (K Shashi / Wtr) 10 meq in 100 mls @ 100 mls/hr IV Q1H ALFRED Stop: 02/15/20 04:46 Last Infusion: 02/15/20 08:05 Dose: 0 mls/hr Documented by: [id number] Admin: 02/15/20 05:12 Dose: 75 mls/hr Documented by: [id number] Infusion: 02/15/20 05:03 Dose: 75 mls/hr Documented by: [id number] Admin: 02/15/20 03:43 Dose: 75 mls/hr Documented by: [id number] Infusion: 02/15/20 03:41 Dose: 100 mls/hr Documented by: [id number] Admin: 02/15/20 02:41 Dose: 100 mls/hr Documented by: [id number] Infusion: 02/15/20 02:37 Dose: 100 mls/hr Documented by: [id number] Admin: 02/15/20 01:37 Dose: 100 mls/hr Documented by: [id number] Potassium Chloride (Potassium Chloride 20 Meq Tabcr) 40 meq PO NOW STA Stop: 02/14/20 18:59 Last Admin: 02/14/20 19:16 Dose: 40 meq Documented by: [id number] Medical Decision Making Differential Diagnosis Differential Diagnosis includes but is not limited to dehydration, stroke, anemia, hypoglycemia, hyponatremia, hypernatremia, urinary tract infection, pneumonia, bronchitis, sepsis, gastroenteritis, additional abdominal pathology, metabolic abnormalities and infections. Medical Records Attestation: I reviewed the patient's medical records. Home Medications Current Medication List: was personally reviewed by me Laboratory Data Attestation: I reviewed the patient's lab results. Result diagrams: 02/16/20 08:15 02/16/20 08:04 Lab Results 02/14/20 02/14/20 02/14/20 Range/Units 18:19 18:19 18:19 WBC 4.50 L (4.8-10.8) K/uL RBC 3.85 L (4.2-5.4) M/uL Hgb 10.5 L (12.0-16.0) g/dL Hct 33.0 L (37-47) % MCV 85.7 (80-100) fL MCH 27.3 (25-34) pg MCHC 31.8 L (32-36) g/dL RDW Std Deviation 43.0 (36.4-46.3) fL RDW Coeff of Lashawn 13.8 (11.5-14.5) % Plt Count 188 (130-400) K/uL MPV 9.0 (7.4-10.4) fL Immature Gran % (Auto) 0.0 % Neut % (Auto) 74.0 % Lymph % (Auto) 20.4 % Crane % (Auto) 4.0 % Eos % (Auto) 1.6 % Baso % (Auto) 0.0 % Neut # (Auto) 3.33 (1.4-6.5) K/uL Lymph # (Auto) 0.92 L (1.2-3.4) K/uL Crane # (Auto) 0.18 (0.11-0.59) K/uL Eos # (Auto) 0.07 (0-0.5) K/uL Baso # (Auto) 0.00 (0-0.2) K/uL Immature Gran # (Auto) 0.00 (0.00-0.02) K/uL PT 24.0 H (9.0-12.0) Seconds INR 2.4 H (0.9-1.1) Sodium 140 (136-145) mmol/L Potassium 3.2 L (3.5-5.1) mmol/L Chloride 106 (98-107) mmol/L Carbon Dioxide 29 (21-32) mmol/L Anion Gap 6.0 (3-11) BUN 15 (7-18) mg/dl Creatinine 1.07 (0.6-1.2) mg/dl Est Cr Clr Drug Dosing 52.0 ml/min Est GFR ( Amer) 61.3 Est GFR (Non-Af Amer) 52.9 BUN/Creatinine Ratio 13.6 (10-20) Glucose 123 H (70-99) mg/dl Calcium 9.4 (8.5-10.1) mg/dl Magnesium 2.0 (1.8-2.4) mg/dl Total Bilirubin 0.6 (0.2-1) mg/dl AST 17 (15-37) U/L ALT 18 (12-78) U/L Alkaline Phosphatase 63 (45-117) U/L Troponin I < 0.015 (0-0.045) ng/ml NT-Pro-B Natriuret Pep 13 (0-900) pg/ml Total Protein 7.6 (6.4-8.2) gm/dl Albumin 3.8 (3.4-5.0) gm/dl Globulin 3.8 (2.5-4.0) gm/dl Albumin/Globulin Ratio 1.0 (0.9-2) Lipase 147 (73-393) U/L TSH 1.680 (0.300-4.500) uIu/ml Urine Color Urine Appearance (Clear) Urine pH (4.5-7.5) Ur Specific Steele (1.000-1.030) Urine Protein (Negative) Urine Glucose (UA) (Negative) Urine Ketones (Negative) Urine Blood (Negative) Urine Nitrite (Negative) Urine Bilirubin (Negative) Urine Urobilinogen (Negative) Ur Leukocyte Esterase (Negative) Urine WBC (Auto) (0-5) /hpf Urine RBC (Auto) (0-4) /hpf U Hyaline Cast (Auto) (0-5) /lpf U Epithel Cells (Auto) (0-5) /lpf Urine Bacteria (Auto) (Negative) Lyme Disease IgG Ab (Negative) Lyme Disease IgM Ab (Negative) 02/14/20 02/14/20 Range/Units 18:19 19:45 WBC (4.8-10.8) K/uL RBC (4.2-5.4) M/uL Hgb (12.0-16.0) g/dL Hct (37-47) % MCV (80-100) fL MCH (25-34) pg MCHC (32-36) g/dL RDW Std Deviation (36.4-46.3) fL RDW Coeff of Lashawn (11.5-14.5) % Plt Count (130-400) K/uL MPV (7.4-10.4) fL Immature Gran % (Auto) % Neut % (Auto) % Lymph % (Auto) % Crane % (Auto) % Eos % (Auto) % Baso % (Auto) % Neut # (Auto) (1.4-6.5) K/uL Lymph # (Auto) (1.2-3.4) K/uL Crane # (Auto) (0.11-0.59) K/uL Eos # (Auto) (0-0.5) K/uL Baso # (Auto) (0-0.2) K/uL Immature Gran # (Auto) (0.00-0.02) K/uL PT (9.0-12.0) Seconds INR (0.9-1.1) Sodium (136-145) mmol/L Potassium (3.5-5.1) mmol/L Chloride (98-107) mmol/L Carbon Dioxide (21-32) mmol/L Anion Gap (3-11) BUN (7-18) mg/dl Creatinine (0.6-1.2) mg/dl Est Cr Clr Drug Dosing ml/min Est GFR ( Amer) Est GFR (Non-Af Amer) BUN/Creatinine Ratio (10-20) Glucose (70-99) mg/dl Calcium (8.5-10.1) mg/dl Magnesium (1.8-2.4) mg/dl Total Bilirubin (0.2-1) mg/dl AST (15-37) U/L ALT (12-78) U/L Alkaline Phosphatase (45-117) U/L Troponin I (0-0.045) ng/ml NT-Pro-B Natriuret Pep (0-900) pg/ml Total Protein (6.4-8.2) gm/dl Albumin (3.4-5.0) gm/dl Globulin (2.5-4.0) gm/dl Albumin/Globulin Ratio (0.9-2) Lipase (73-393) U/L TSH (0.300-4.500) uIu/ml Urine Color Yellow Urine Appearance Clear (Clear) Urine pH 5.0 (4.5-7.5) Ur Specific Steele 1.014 (1.000-1.030) Urine Protein Negative (Negative) Urine Glucose (UA) Negative (Negative) Urine Ketones Negative (Negative) Urine Blood Trace H (Negative) Urine Nitrite Negative (Negative) Urine Bilirubin Negative (Negative) Urine Urobilinogen Negative (Negative) Ur Leukocyte Esterase 1+ H (Negative) Urine WBC (Auto) 5-10 H (0-5) /hpf Urine RBC (Auto) 0-4 (0-4) /hpf U Hyaline Cast (Auto) 0 (0-5) /lpf U Epithel Cells (Auto) 5-10 H (0-5) /lpf Urine Bacteria (Auto) Negative (Negative) Lyme Disease IgG Ab Negative (Negative) Lyme Disease IgM Ab Negative (Negative) Imaging Data Radiologist's Impression: XR chest 1V portable HISTORY: 69 years-old Female palpitations acute cardiac palpitations COMPARISON: Chest radiograph 06/21/2019 TECHNIQUE: Portable upright AP view the chest FINDINGS: Cardiomediastinal and hilar silhouettes are within normal limits. No pneumothorax, pleural effusion, airspace consolidation or overt pulmonary edema. Minimal linear subsegmental lateral left lung base atelectasis/scarring. Bones appear grossly intact. IMPRESSION: No acute process. ACT 112: Negative or not required by law. The above report was generated using voice recognition software. It may contain grammatical, syntax or spelling errors. Electronically signed by: Garfield Garrido M.D. 02/14/2020 6:[address] head/brain wo con CLINICAL HISTORY: 69 years-old Female with confusion. Acute confusion with altered mental status TECHNIQUE: Multiple axial CT images of the head were obtained without contrast. A dose lowering technique was utilized adhering to the principles of ALARA. CT DOSE: 537.48 mGy.cm COMPARISON: None. FINDINGS: No acute intracranial hemorrhage, midline shift, intracranial mass, hydrocephalus, territorial ischemia or abnormal extra-axial collection. [place] t calcifications of the left lentiform nucleus. Mild patchy white matter hypodensities suggest chronic microvascular ischemic disease. The calvarium is intact. The paranasal sinuses, mastoid air cells, and middle ear cavities are clear. IMPRESSION: No acute intracranial abnormality. ACT 112: Negative or not required by law. The above report was generated using voice recognition software. It may contain grammatical, syntax or spelling errors. Electronically signed by: Garfield Garrido M.D. 02/14/2020 6:45 PM ECG Data Attestation: I personally reviewed and interpreted this ECG as follows: Indication: + weakness Rate (beats per minute): 73 Rhythm: + normal sinus ECG Intervals/blocks: + Normal QRS and + Normal QT ECG [place]: + Normal MDM Narrative Pt here with increasing weakness, palpiations, DARNELL and ultimately found to have anemia which is most likely from her ongoing GI bleed. Pt unfortunately anticoagulated due to DVt's. Likely symptoms from worsening anemia due to ongoing GI bleed. No evidence of ACS. I do not suspect additional infectious etiology. Mild hypokalemia noted, I do not suspect this is the primary cause of her symptoms as she was concerned about. VS otw stable. No evidence of ectopy or acute dysrhythmia on tele. I discussed all results with pt and her daughter at bedside. Discussed options for disposition. Given pt lives alone and symptoms have continued to worsen over the week, pt in agreement with the plan for additional inpatient mgmt. An order was placed for continuous cardiac monitoring. The monitor shows a rate of _70 with _normal sinus_ rhythm. Impression & Plan Dyspnea, Anemia, Palpitation, GI bleed, Hypokalemia Discharge Plan Visit Data Chief Complaint: Leg Weakness, Bilateral Stated Complaint: POSSIBLY LOW POTASSIUM,LEG WEEKNESS ED Provider: Nini Molina Discharge Problem: Dyspnea, Anemia, Palpitation, GI bleed, Hypokalemia Patient Disposition: Admitted As Inpatient Discharge Instructions Interventions: ED Discharge Assessment Last Done: 02/15/20 00:06 Discharge Problem: Dyspnea Qualifiers: Dyspnea type: dyspnea on exertion Qualified Code(s): R06.00 - Dyspnea, unspecified Anemia Qualifiers: Anemia type: unspecified type Qualified Code(s): D64.9 - Anemia, unspecified GI bleed Qualifiers: GI bleed type/associated pathology: unspecified gastrointestinal hemorrhage type Qualified Code(s): K92.2 - Gastrointestinal hemorrhage, unspecified
[2020-02-14 18:35] LABS: Eosinophils # (auto) 0.07 K/uL (0-0.5); Eosinophils % (auto) 1.6 %; Hemoglobin 10.5 g/dL (12.0-16.0); Lymphocytes # (auto) 0.92 K/uL (1.2-3.4); Lymphocytes % (auto) 20.4 %; Mean Corpuscular Hemoglobin 27.3 pg (25-34); Mean Corpuscular Hgb Conc 31.8 g/dL (32-36); Mean Corpuscular Volume 85.7 fL (80-100); Monocytes # (auto) 0.18 K/uL (0.11-0.59); Neutrophils # (auto) 3.33 K/uL (1.4-6.5); Platelet Count 188 K/uL (130-400); RDW Coefficient of Variation 13.8 % (11.5-14.5); Red Blood Count 3.85 M/uL (4.2-5.4)
[2020-02-14 18:44] LABS: INR 2.4 (0.9-1.1)
[2020-02-14] MEDS: SODIUM CHLORIDE 0.9% 1000ML 1,000 ML IV SCH (18:45)
--- NOTE | 2020-02-14 18:45 | XRay Report ---
XR chest 1V portable HISTORY: 69 years-old Female palpitations acute cardiac palpitations COMPARISON: Chest radiograph 06/21/2019 TECHNIQUE: Portable upright AP view the chest FINDINGS: Cardiomediastinal and hilar silhouettes are within normal limits. No pneumothorax, pleural effusion, airspace consolidation or overt pulmonary edema. Minimal linear subsegmental lateral left lung base a telectasis/scarring. Bones appear grossly intact. IMPRESSION: No acute process. ACT 112: Negative or not required by law. The above report was generated using voice recognition software. It may contain grammatical, syntax o r spelling errors. Electronically signed by: Garfield Garrido M.D. 02/14/2020 6:43 PM
--- NOTE | 2020-02-14 18:46 | CT Scan Report ---
CT head/brain wo con CLINICAL HISTORY: 69 years-old Female with confusion. Acute confusion with altered mental status TECHNIQUE: Multiple axial CT images of the head were obtained without contrast. A dose lowering tech nique was utilized adhering to the principles of ALARA. CT DOSE: 537.48 mGy.cm COMPARISON: None. FINDINGS: No acute intracranial hemorrhage, midline shift, intracranial mass, hydrocephalus, territorial ischem ia or abnormal extra-axial collection. Senescent calcifications of the left lentiform nucleus. Mild p atchy white matter hypodensities suggest chronic microvascular ischemic disease. The calvarium is intact. The paranasal sinuses, mastoid air cells, and middle ear cavities are clear . IMPRESSION: No acute intracranial abnormality. ACT 112: Negative or not required by law. The above report was generated using voice recognition software. It may contain grammatical, syntax o r spelling errors. Electronically signed by: Garfield Garrido M.D. 02/14/2020 6:45 PM
[2020-02-14 18:52] LABS: Alanine Aminotransferase 18 U/L (12-78); Albumin Level 3.8 gm/dl (3.4-5.0); Aspartate Aminotransferase 17 U/L (15-37); BUN Creatinine Ratio 13.6 (10-20); Blood Urea Nitrogen 15 mg/dl (7-18); Calcium 9.4 mg/dl (8.5-10.1); Carbon Dioxide 29 mmol/L (21-32); Chloride 106 mmol/L (98-107); Est GFR (African American) 61.3; Est GFR (Non-African American) 52.9; Glucose 123 mg/dl (70-99); Lipase 147 U/L (73-393); Potassium 3.2 mmol/L (3.5-5.1); Sodium 140 mmol/L (136-145)
[2020-02-14] MEDS ORDERED: POTASSIUM CHLORIDE 20 MEQ TABCR PO STA (18:58)
[2020-02-14 19:03] LABS: Alkaline Phosphatase 63 U/L (45-117); Bilirubin,Total 0.6 mg/dl (0.2-1); Globulin 3.8 gm/dl (2.5-4.0); NT Pro B Type Natriuretic Pept 13 pg/ml (0-900); Total Protein 7.6 gm/dl (6.4-8.2); Troponin I < 0.015 ng/ml (0-0.045)
[2020-02-14 19:25] LABS: Lyme Ab IgG w/WB Rflx Negative (Negative); Lyme Ab IgM w/WB Rflx Negative (Negative)
[2020-02-14 20:02] LABS: Appearance Urine Clear (Clear); Bacteria Urine Automated Negative (Negative); Bilirubin Urine Negative (Negative); Blood Urine Trace (Negative); Cast Urine Automated 0 /lpf (0-5); Color Urine Yellow; Glucose Urine UA Negative (Negative); Ketones Urine Negative (Negative); Leukocyte Esterase Urine 1+ (Negative); Nitrite Urine Negative (Negative); Protein Urine Negative (Negative); RBC Urine Automated 0-4 /hpf (0-4); Specific Gravity Urine 1.014 (1.000-1.030); Urobilinogen Urine Negative (Negative)
--- NOTE | 2020-02-14 21:24 | History & Physical Report ---
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 She has had daily bright red and sometimes dark red bleeding with clots with bowel movements for 2 years which have worsened in the last week. Weakness, suspect symptomatic anemia from lower GI bleed Patient with known diverticulosis, last colonoscopy 2017 No family history of colorectal cancer -Patient has had daily bright red bleeding with known internal and external hemorrhoids for 2 years, in the last week this is increased and has been associated with daily clots/dark red clots On anticoagulation with warfarin for recurrent DVT Patient with fatigue, lightheadedness, and decreased exercise tolerance noticeable when walking and going up stairs. - Hgb 10, acutely decreased from 14 at last labs Hold warfarin. Patient with IVC filter CBC every 8 hours, hemodynamically stable at this time Admit to med telemetry with monitoring Optimize electrolytes as below GI consulted - Suspect lower GIB, continue oral PPI, defer IV PPI tx Hypokalemia Patient with history of mild intermittent hypokalemia which has exacerbated her symptoms in the past Potassium 3.2 on admission Magnesium pending Suspect due to GI losses with irritation from blood Patient with adequate blood pressure control, LVAD on triple therapy. Defer evaluation for mineralocorticoid excess at this time Replete with K riders, received p.o. in ED N.p.o. pending GI eval Hypertension Continue amlodipine 5 mg daily Continue losartan 100 mg daily Continue hydrochlorothiazide 12.5 mg p.o. daily History of DVT with PE Warfarin held as above INR admission 2.3 Patient reports history of IVC filter placement Risk/benefit analysis of ongoing anticoagulation will require further discussion moving forward. She has a history of recurrent clots, with persistent bleeding Diet: N.p.o. 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 She has had daily bright red and sometimes dark red bleeding with clots with bowel movements for 2 years which have worsened in the last week. Nila reports her symptoms began to worsen about 1 week ago. She had increased fatigue and dyspnea with exertion and a racing heart when she would try to go up stairs or walk distances. She has not had any chest pain. She feels her weakness and fatigue is all over, but is most noticeable in her legs when she is trying to walk. She had a similar episode to this in June and was found to have a slightly low potassium. She has not had any numbness or tingling. She sometimes get nauseous, but has not had any abdominal pain or vomiting. No pain with meals, although she occasionally feels bloated. She has not had any lower left or right, or right upper quadrant tenderness in her belly. Last colonoscopy was in 2018 and showed diverticulosis recommended for 5-year follow-up. Her GI doctor is through [facility] and is Dr. Reese. She has not had any coffee ground bowel movements. She denies recent illness including fevers and shaking chills, although she gets some chills from being cold. She has not had any recent sick contacts. She normally is able to ambulate independently at home but does have stairs in her home. Her daughter notes that she seemed a little bit confused today with her fatigue, although she is at her normal mental baseline at time of HPI. He is on chronic anticoagulation for recurrent DVTs. She had her first DVT in 2002 with pulmonary embolism. She was on long-term anticoagulation following this, but due to recurrent epistaxis this was stopped several years ago. She developed an additional DVT and was restarted on warfarin indefinitely. She has also had a IVC filter placed per patient. No recurrent PE since 2002. Medications: Reviewed Medical history: Reviewed Surgical history: Reviewed Family history: Reviewed, noncontributory Social: Denies tobacco use, alcohol use, recreational drug use. Lives in a home alone next to her mother. No recent sick contacts. CODE STATUS: Full code, confirmed with patient and daughter at bedside Allergies Allergy/AdvReac Type Severity Reaction Status Date / Time No Known Drug Allergies Allergy Verified 02/16/20 14:35 Home Medications Home Medications Medication Instructions Recorded Confirmed Type duloxetine 60 mg capsule,delayed 60 mg PO QAM 03/06/19 02/14/20 History release famotidine 20 mg tablet 20 mg PO BID tab 03/06/19 02/14/20 History lorazepam 0.5 mg tablet 0.5 mg PO DAILY PRN #30 tab 05/28/19 02/14/20 Rx Calcium 600 + D(3) 1 cap PO BID 06/22/19 02/14/20 History losartan 100 mg tablet 100 mg PO DAILY #90 tab 12/11/19 02/14/20 Rx amlodipine 5 mg tablet 5 mg PO DAILY #90 tab 01/07/20 02/14/20 Rx potassium gluconate 595 mg PO DAILY 02/14/20 02/14/20 History warfarin 2.5 mg PO 6XWK 02/14/20 02/16/20 History warfarin 5 mg PO WK 02/14/20 02/16/20 History ferrous sulfate 325 mg PO DAILY #30 tab 02/16/20 Rx hydrocortisone acetate [Anusol-HC] [address] BID 7 Days #24 ea 02/16/20 Rx Past Med/Surg History Medical History Acid reflux Anemia Anxiety Benign essential hypertension Chronic anticoagulation Depression Gallstones History of blood clots History of deep vein thrombosis (DVT) of lower extremity (06/2019) RLE Hyperlipidemia Surgical History H/O section History of small bowel obstruction (2008) Hx of breast reduction, elective (2011) Hx of hysterectomy (1991) S/P cataract extraction (12/2019) b/l eyes Family History Mother Cardiac disorder Hypertension Myocardial infarction Heart disease Grandmother Breast cancer Cancer Father Myocardial infarction Hypertension Heart disease Denies family history of Ovarian cancer Prostate cancer Colorectal cancer Social History Smoking Status: Unknown if ever smoked Second Hand Exposure: No; Hx Alcohol Use: No Hx Substance Use: No Preferred Language: Spanish Communication Ability: Effective Visual Impairment: No Limitations Hearing Ability: Normal Supervisor Drying Required: No Beliefs That Will Affect Care: None marital status: / Current Living Situation: Family current occupational status: retired Feels Safe at Home: Yes Childhood Exposure to Second-Hand Smoke: No caffeine: Yes (Coffee 1 cup per day. Tea x 2 cups per day.) during the past year weight has: remained stable Dental Care, Regularly: Yes Physical Activity Frequency: 1-2 Times per Week Seatbelt Use: always Sunscreen Use: Yes Assistive Devices: None Review of Systems Review of Systems: All systems reviewed & are unremarkable except as noted in HPI & below Physical Exam Physical Exam: General: A&Ox3. NAD. Cooperative. HEENT: Atraumatic, normocephalic. Pulm: CTAB A&P. -wheezes, -rales, -rhonchi. Symmetrical chest rise. No increase work of breathing. No respiratory distress. Cardiac: RRR, -mrg. Radial pulses intact and symmetrical. Abdominal: Nontender, nondistended, soft. BS present. CRANIAL NERVES: II: Pupils equal and reactive, no relative afferent pupillary defect, no VF cuts III, IV, : EOM intact, no gaze preference or deviation, no nystagmus. V: normal sensation in V1, V2, and V3 segments bilaterally VII: no asymmetry, no nasolabial fold flattening VIII: normal hearing to speech IX, X: normal palatal elevation, no uvular deviation XI: 5/5 head turn XII: midline tongue protrusion MOTOR: RUE: 5/5 Shoulder internal rotation, external rotation, flexion, extension, abduction , adduction 5/5 Elbow flexion/extension, wrist flexion/extension 5/5 group home counselor strength, finger flexion/extension, interosseus LUE: 5/5 Shoulder internal rotation, external rotation, flexion, extension, a bduction, adduction 5/5 Elbow flexion/extension, wrist flexion/extension 5/5 group home counselor strength, finger flexion/extension, interosseus RLE: 5/5 to hip flexion/extension, knee flexion/extension, ankle dors iflexion/plantarflexion LLE: 5/5 to hip flexion/extension, knee flexion/extension, ankle dorsiflexion/plantarflexion SENSORY: Normal to touch in upper and lower extremities without deficit or asymmetry Results & Data Results & Data ([facility]) Vital Signs (Past 12 Hours) Vital Signs Temp Pulse Pulse Pulse Pulse Pulse Resp 02/14/20 21:01 72 19 02/14/20 20:30 72 17 02/14/20 20:00 89 21 02/14/20 19:40 90 84 88 02/14/20 19:30 82 12 02/14/20 19:00 77 13 02/14/20 18:30 87 20 02/14/20 18:08 76 20 02/14/20 17:29 36.5 C 88 20 BP BP Pulse Ox Pulse Ox Pulse Ox Pulse Ox 02/14/20 21:01 148/83 H 100 02/14/20 20:30 132/86 100 02/14/20 20:00 129/90 100 02/14/20 19:40 92 96 98 02/14/20 19:30 151/82 H 97 02/14/20 19:00 131/63 98 02/14/20 18:30 130/84 99 02/14/20 18:08 158/88 H 99 02/14/20 17:29 154/80 H 99 Supervising Physician Co-Signing Physician Notes Attending addendum: I have physically seen this patient, have supervised the medical residents activities, and agree with the H&P unless as otherwise noted. Assessment and Plan: Symptomatic anemia secondary to lower GI bleed- Hemoglobin 10 by admission, with most recent at 14. Hold warfarin. H&H every 6 hours Type and screen NPO except essential medications Consult gastroenterology Remaining orders and notations as noted Resident Activity Tracking Resident Involvement: Resident Care Provided Care Provided: Adult Hospital Medicine (1) Anemia Anemia type: unspecified type Qualified Code(s): D64.9 - Anemia, unspecified (2) Dyspnea Dyspnea type: dyspnea on exertion Qualified Code(s): R06.00 - Dyspnea, unspecified
[2020-02-15] MEDS ORDERED: ACETAMINOPHEN 325 MG TAB PO PRN (00:47)
[2020-02-15] MEDS ORDERED: LORazepam 0.5 MG TAB PO PRN (00:47)
[2020-02-15] MEDS: SODIUM CHLORIDE 0.9% 1000ML 1,000 ML IV SCH (01:08)
[2020-02-15] MEDS: PANTOprazole 40 MG TAB PO SCH ×3 (01:34→20:14)
[2020-02-15] MEDS: NSS + 20MEQ KCL 20 MEQ/1,000 ML BAG IV SCH ×4 (01:37→21:46)
[2020-02-15] MEDS: POTASSIUM CHLORIDE / WTR 10 MEQ/100 ML PLCT IV SCH ×4 (01:37→05:12)
[2020-02-15 06:18] LABS: Basophils # (auto) 0.01 K/uL (0-0.2); Basophils % (auto) 0.2 %; Eosinophils # (auto) 0.13 K/uL (0-0.5); Eosinophils % (auto) 3.1 %; Hematocrit (blood only) 30.4 % (37-47); Hemoglobin 9.7 g/dL (12.0-16.0); Lymphocytes # (auto) 1.26 K/uL (1.2-3.4); Lymphocytes % (auto) 30.5 %; Mean Corpuscular Hemoglobin 27.5 pg (25-34); Mean Corpuscular Hgb Conc 31.9 g/dL (32-36); Mean Corpuscular Volume 86.1 fL (80-100); Mean Platelet Volume 9.1 fL (7.4-10.4); Monocytes # (auto) 0.31 K/uL (0.11-0.59); Monocytes % (auto) 7.5 %; Neutrophils # (auto) 2.42 K/uL (1.4-6.5); Neutrophils % (auto) 58.7 %; Platelet Count 165 K/uL (130-400); RDW Coefficient of Variation 13.9 % (11.5-14.5); RDW Standard Deviation 43.3 fL (36.4-46.3); Red Blood Count 3.53 M/uL (4.2-5.4); White Blood Count 4.13 K/uL (4.8-10.8)
[2020-02-15 06:26] LABS: INR 2.2 (0.9-1.1); Prothrombin Time 21.9 Seconds (9.0-12.0)
[2020-02-15 06:43] LABS: BUN Creatinine Ratio 13.3 (10-20); Calcium 8.6 mg/dl (8.5-10.1); Creatinine Clr Calc Pharmacy 62.3 ml/min; Est GFR (African American) 76.6; Est GFR (Non-African American) 66.1; Potassium 4.7 mmol/L (3.5-5.1)
[2020-02-15] MEDS: DULoxetine HCL 60 MG CAP PO SCH (07:29)
[2020-02-15] MEDS: LOSARTAN POTASSIUM 50 MG TAB PO SCH (07:29)
[2020-02-15] MEDS: FAMOTIDINE 20 MG TAB PO SCH ×2 (07:30→20:14)
[2020-02-15] MEDS: amLODIPine BESYLATE 5 MG TAB PO SCH (07:30)
--- NOTE | 2020-02-15 07:50 | Electrocardiogram Report ---
Test Reason : Blood Pressure : / mmHG Vent. Rate : 073 BPM Atrial Rate : 073 BPM P-R Int : 152 ms QRS Dur : 084 ms QT Int : 406 ms P-R-T Axes : 038 -12 072 degrees QTc Int : 447 ms Normal sinus rhythm Poor R wave progression, consider anterior IN vs. lead placement vs. LVH Borderline ECG When compared with ECG of 21-JUN-2019 11:31, No significant change was found Confirmed by Wander Lane ([id number]) on 02/15/2020 7:49:43 AM Referred By: REFERRED SELF Confirmed By:Wander Lane
[2020-02-15] MEDS ORDERED: hydroCHLOROthiazide 25 MG TAB PO SCH (09:00)
--- NOTE | 2020-02-15 09:39 | Gastrointestinal Consultation ---
Date of Consultation February 15, 2020 Assessment & Plan (1) Chronic anticoagulation: (2) Anemia: (3) Lower GI bleeding: The patient presented to the emergency department due to increase in amount of bright red blood in stool, weakness, dizziness, tachycardia. Hemoglobin 9.7, hematocrit 30.4 this morning. Patient has history of colonoscopy demonstrating diverticulosis and internal hemorrhoids. She is on chronic anticoagulation with warfarin (currently on hold). Plan is clear liquid diet. N.p.o. after 11 AM 02/16/2020. Prep today for colonoscopy tomorrow. Procedural risks reviewed. Please refer to supervising physician addendum for further recommendations. History of Present Illness Attending Physician: Dennis Caba History of Present Illness The patient is a very pleasant 69-year-old female with past medical history to include hypertension, hemorrhoids, depression, recurrent DVT with pulmonary emboli on chronic anticoagulation with warfarin who presented to the emergency department due to increased volume of rectal bleeding, weakness, dizziness, and tachycardia. She reported previous episodes with hypokalemia. She was subsequently admitted due to exertional shortness of breath and palpitations in addition to her laboratory findings. Patient also had some confusion at time of ER evaluation. On exam/interview today, the patient reports that overall she is feeling significantly improved. She reports she continues to have some bright red blood per rectum. Pass clots at times. She reports that the quantity has been decreased since her Coumadin has been on hold. Denies abdominal pain. Denies nausea or vomiting. Denies melena. Denies hematemesis or coffee-ground emesis. Reports previous colonoscopy in 2018 by [facility] [place] which demonstrated diverticulosis and hemorrhoids. Reports she has had bright red blood in her stool for the last 2 years. Ava this was related to her known internal and external hemorrhoids. The patient is a . She has 1 adult daughter. She has no grandchildren. She is a lifetime non-smoker with no significant alcohol use. Denies use of recreational drugs including marijuana. She reports she is retired. She formally worked in an insurance agency. Prior to her [facility] she worked as a resident aide at [employer] reports she has [place]. Allergies Allergy/AdvReac Type Severity Reaction Status Date / Time No Known Drug Allergies Allergy Verified 02/14/20 19:45 Home Medications Home Medications Medication Instructions Recorded Confirmed Type duloxetine 60 mg capsule,delayed 60 mg PO QAM 03/06/19 02/14/20 History release famotidine 20 mg tablet 20 mg PO BID tab 03/06/19 02/14/20 History lorazepam 0.5 mg tablet 0.5 mg PO DAILY PRN #30 tab 05/28/19 02/14/20 Rx calcium carbonate-vitamin D3 1 cap PO BID 06/22/19 02/14/20 History [Calcium 600 + D(3)] losartan 100 mg tablet 100 mg PO DAILY #90 tab 12/11/19 02/14/20 Rx amlodipine 5 mg tablet 5 mg PO DAILY #90 tab 01/07/20 02/14/20 Rx hydrochlorothiazide 12.5 mg PO DAILY 02/14/20 02/14/20 History potassium gluconate 595 mg PO DAILY 02/14/20 02/14/20 History warfarin 2.5 mg PO 6XWK 02/14/20 02/14/20 History warfarin 5 mg PO WK 02/14/20 02/14/20 History Patient History Medical History Acid reflux Anemia Anxiety Benign essential hypertension Chronic anticoagulation Depression Gallstones History of blood clots History of deep vein thrombosis (DVT) of lower extremity (06/2019) RLE Hyperlipidemia Surgical History H/O section History of small bowel obstruction (2008) Hx of breast reduction, elective (2011) Hx of hysterectomy (1991) S/P cataract extraction (12/2019) b/l eyes Family History Mother Cardiac disorder Hypertension Myocardial infarction Heart disease Grandmother Breast cancer Cancer Father Myocardial infarction Hypertension Heart disease Denies family history of Ovarian cancer Prostate cancer Colorectal cancer Social History Smoking Status: Unknown if ever smoked Second Hand Exposure: No; Hx Alcohol Use: No Hx Substance Use: No Preferred Language: Zambian Communication Ability: Effective Visual Impairment: No Limitations Hearing Ability: Normal Creative Technologist Required: No Beliefs That Will Affect Care: None marital status: / Current Living Situation: Family current occupational status: retired Other Information That Helps Us Care for You: No Feels Safe at Home: Yes Safety Concerns: Feels Safe At This Time Childhood Exposure to Second-Hand Smoke: No caffeine: Yes (Coffee 1 cup per day. Tea x 2 cups per day.) during the past year weight has: remained stable Dental Care, Regularly: Yes Physical Activity Frequency: 1-2 Times per Week Seatbelt Use: always Sunscreen Use: Yes Assistive Devices: None Review of Systems Review of Systems: All systems reviewed & are unremarkable except as noted in Subjective Physical Exam Constitutional: WD/WN, vitals as above Eyes: no eyelid abnormality and no conjunctival abnormality ENMT: Ears: no external ear abnormality Nose: no external nose abnormality Neck: normal visual inspection and trachea midline Respiratory: normal respiratory effort, lungs clear to auscultation Cardiovascular: RRR, no murmur, no edema Gastrointestinal (Abdomen): normal bowel sounds, soft, nontender, no hepatosplenomegaly Musculoskeletal: Extremities: extremities normal to inspection Neurologic: PERRL, EOMI, accommodation nl, no face palsy, no dysarthria Psychiatric: A+Ox3, euthymic affect Results & Data ([facility]) Vital Signs (Past 12 Hours) Vital Signs Temp Pulse Pulse Resp BP BP BP 02/15/20 07:25 36.8 C 70 18 121/71 02/15/20 02:49 36.7 C 62 18 119/73 02/15/20 00:47 66 02/15/20 00:06 68 16 144/74 H 02/14/20 22:29 66 18 143/75 H 02/14/20 22:00 65 11 L 143/75 H Pulse Ox 02/15/20 07:25 98 02/15/20 02:49 97 02/15/20 00:47 02/15/20 00:06 96 02/14/20 22:29 99 02/14/20 22:00 98 Laboratory Results - last 24 hr 02/14/20 02/14/20 02/14/20 18:19 18:19 18:19 WBC 4.50 L RBC 3.85 L Hgb 10.5 L Hct 33.0 L MCV 85.7 MCH 27.3 MCHC 31.8 L RDW Std Deviation 43.0 RDW Coeff of Lashawn 13.8 Plt Count 188 MPV 9.0 Immature Gran % (Auto) 0.0 Neut % (Auto) 74.0 Lymph % (Auto) 20.4 [place] % (Auto) 4.0 Eos % (Auto) 1.6 Baso % (Auto) 0.0 Neut # (Auto) 3.33 Lymph # (Auto) 0.92 L [place] # (Auto) 0.18 Eos # (Auto) 0.07 Baso # (Auto) 0.00 Immature Gran # (Auto) 0.00 PT 24.0 H INR 2.4 H Sodium 140 Potassium 3.2 L Chloride 106 Carbon Dioxide 29 Anion Gap 6.0 BUN 15 Creatinine 1.07 Est Cr Clr Drug Dosing 52.0 Est GFR ( Amer) 61.3 Est GFR (Non-Af Amer) 52.9 BUN/Creatinine Ratio 13.6 Glucose 123 H Calcium 9.4 Magnesium 2.0 Total Bilirubin 0.6 AST 17 ALT 18 Alkaline Phosphatase 63 Troponin I < 0.015 NT-Pro-B Natriuret Pep 13 Total Protein 7.6 Albumin 3.8 Globulin 3.8 Albumin/Globulin Ratio 1.0 Lipase 147 TSH 1.680 Urine Color Urine Appearance Urine pH Ur Specific [place] Urine Protein Urine Glucose (UA) Urine Ketones Urine Blood Urine Nitrite Urine Bilirubin Urine Urobilinogen Ur Leukocyte Esterase Urine WBC (Auto) Urine RBC (Auto) U Hyaline Cast (Auto) U Epithel Cells (Auto) Urine Bacteria (Auto) Lyme Disease IgG Ab Lyme Disease IgM Ab 02/14/20 02/14/20 02/15/20 18:19 19:45 05:58 WBC RBC Hgb Hct MCV MCH MCHC RDW Std Deviation RDW Coeff of Lashawn Plt Count MPV Immature Gran % (Auto) Neut % (Auto) Lymph % (Auto) [place] % (Auto) Eos % (Auto) Baso % (Auto) Neut # (Auto) Lymph # (Auto) [place] # (Auto) Eos # (Auto) Baso # (Auto) Immature Gran # (Auto) PT INR Sodium 143 Potassium 4.7 D Chloride 113 H Carbon Dioxide 27 Anion Gap 3.0 BUN 12 Creatinine 0.89 Est Cr Clr Drug Dosing 62.3 Est GFR ( Amer) 76.6 Est GFR (Non-Af Amer) 66.1 BUN/Creatinine Ratio 13.3 Glucose 80 Calcium 8.6 Magnesium Total Bilirubin AST ALT Alkaline Phosphatase Troponin I NT-Pro-B Natriuret Pep Total Protein Albumin Globulin Albumin/Globulin Ratio Lipase TSH Urine Color Yellow Urine Appearance Clear Urine pH 5.0 Ur Specific [place] 1.014 Urine Protein Negative Urine Glucose (UA) Negative Urine Ketones Negative Urine Blood Trace H Urine Nitrite Negative Urine Bilirubin Negative Urine Urobilinogen Negative Ur Leukocyte Esterase 1+ H Urine WBC (Auto) 5-10 H Urine RBC (Auto) 0-4 U Hyaline Cast (Auto) 0 U Epithel Cells (Auto) 5-10 H Urine Bacteria (Auto) Negative Lyme Disease IgG Ab Negative Lyme Disease IgM Ab Negative 02/15/20 02/15/20 05:58 05:58 WBC 4.13 L RBC 3.53 L Hgb 9.7 L Hct 30.4 L MCV 86.1 MCH 27.5 MCHC 31.9 L RDW Std Deviation 43.3 RDW Coeff of Lashawn 13.9 Plt Count 165 MPV 9.1 Immature Gran % (Auto) 0.0 Neut % (Auto) 58.7 Lymph % (Auto) 30.5 [place] % (Auto) 7.5 Eos % (Auto) 3.1 Baso % (Auto) 0.2 Neut # (Auto) 2.42 Lymph # (Auto) 1.26 [place] # (Auto) 0.31 Eos # (Auto) 0.13 Baso # (Auto) 0.01 Immature Gran # (Auto) 0.00 PT 21.9 H INR 2.2 H Sodium Potassium Chloride Carbon Dioxide Anion Gap BUN Creatinine Est Cr Clr Drug Dosing Est GFR ( Amer) Est GFR (Non-Af Amer) BUN/Creatinine Ratio Glucose Calcium Magnesium Total Bilirubin AST ALT Alkaline Phosphatase Troponin I NT-Pro-B Natriuret Pep Total Protein Albumin Globulin Albumin/Globulin Ratio Lipase TSH Urine Color Urine Appearance Urine pH Ur Specific [place] Urine Protein Urine Glucose (UA) Urine Ketones Urine Blood Urine Nitrite Urine Bilirubin Urine Urobilinogen Ur Leukocyte Esterase Urine WBC (Auto) Urine RBC (Auto) U Hyaline Cast (Auto) U Epithel Cells (Auto) Urine Bacteria (Auto) Lyme Disease IgG Ab Lyme Disease IgM Ab (1) Anemia Anemia type: unspecified type Qualified Code(s): D64.9 - Anemia, unspecified
[2020-02-15 13:03] LABS: Basophils # (auto) 0.01 K/uL (0-0.2); Basophils % (auto) 0.2 %; Eosinophils # (auto) 0.07 K/uL (0-0.5); Eosinophils % (auto) 1.7 %; Hematocrit (blood only) 31.5 % (37-47); Hemoglobin 9.7 g/dL (12.0-16.0); Immature Granulocytes # (auto) 0.01 K/uL (0.00-0.02); Immature Granulocytes % (auto) 0.2 %; Lymphocytes # (auto) 1.05 K/uL (1.2-3.4); Lymphocytes % (auto) 25.5 %; Mean Corpuscular Hgb Conc 30.8 g/dL (32-36); Mean Corpuscular Volume 87.7 fL (80-100); Mean Platelet Volume 9.1 fL (7.4-10.4); Monocytes % (auto) 4.9 %; Neutrophils # (auto) 2.78 K/uL (1.4-6.5); Neutrophils % (auto) 67.5 %; Platelet Count 172 K/uL (130-400); RDW Standard Deviation 44.9 fL (36.4-46.3); Red Blood Count 3.59 M/uL (4.2-5.4); White Blood Count 4.12 K/uL (4.8-10.8)
--- NOTE | 2020-02-15 16:57 | Consultation Report ---
DATE OF CONSULTATION: 02/15/2020 Gastrointestinal consultation note and addendum to Amaya Pennington's note: I interviewed the patient and examined her and reviewed the chart and labs. The patient presents with a week and a half of rectal bleeding and passing some clots. Two years ago at [facility] in [place], she had a colonoscopy that showed diverticulosis and hemorrhoids. She has had minimal hemorrhoidal bleeding for many years, which I am sure is exacerbated by her Coumadin, which she takes for DVT and pulmonary embolism in the past. When she presented to the hospital, her hemoglobin was 10.5, it is currently 9.7. INR was 2.4, which is now 2.2 after being held. BUN 12, creatinine 0.89. She reports no abdominal pain, and on exam, she has a midline scar from a previous hysterectomy and colonic polyp removed surgically and adhesiolysis postoperatively. The patient reports no pain with palpation of the abdomen. IMPRESSION: The patient has rectal bleeding, most likely lower gastrointestinal, probably diverticular, exacerbated by Coumadin, which is being held. We will prep her and proceed with colonoscopy tomorrow afternoon for further evaluation.
[2020-02-15] MEDS: LAVAGE SOLUTION 4000ML PO SCH (18:34)
--- NOTE | 2020-02-15 20:27 | Hospitalist Progress Note ---
Date of Service February 15, 2020 Assessment & Plan (1) Lower GI bleeding: diverticular vs hemorrhoids vs other. mild associated acute blood loss anemia. GI consult appreciated; colonoscopy tomorrow. prep tonight. NPO after MN. (2) Acute blood loss anemia: 2nd to Lower GI bleeding. see above. serial H/H's. holding coumadin. INR am. (3) History of deep vein thrombosis (DVT) of lower extremity: noted. has IVC filter in place. holding coumadin. INR am. (4) Benign essential hypertension: controlled with amlodipine, HCTZ, and ARB. may need to hold 1 or more in setting of acute blood loss anemia. (5) Presence of IVC filter: noted Admission and Anticipated Discharge Date Admission Date: February 14, 2020 Subjective patient w/o complaints during my visit. has seen a small amount of painless BRBPR since admission but improved in comparison to the amount she had at home. no abd pain. otherwise feeling well. no dizziness/lightheadedness. about to start prep for colonoscopy tomorrow. Review of Systems Constitutional: + fatigue Respiratory: no dyspnea Cardiovascular: no chest pain Gastrointestinal: no abdominal pain, no nausea and no vomiting Physical Exam Constitutional: well developed and well nourished; no acute distress and no altered mental status ENMT: external ear and nose normal, oropharynx normal Respiratory: normal respiratory effort, lungs clear to auscultation Cardiovascular: Rate/Rhythm: regular rate and regular rhythm Heart Sounds: normal S1 and normal S2; no murmur Vessels: posterior tibial pulses present and dorsalis pedis pulses present; no JVD Extremities: no edema Gastrointestinal (Abdomen): normal bowel sounds, soft, nontender, no hepatosplenomegaly Psychiatric: A+Ox3, euthymic affect Results & Data Results & Data ([facility]) Vital Signs (Past 12 Hours) Vital Signs Temp Pulse Pulse Resp BP BP Pulse Ox 02/15/20 18:57 37.0 C 77 18 125/75 96 02/15/20 16:00 37.0 C 74 85 18 119/73 99 02/15/20 11:15 36.9 C 60 18 117/69 98 Laboratory Results Laboratory Results - last 24 hr 02/15/20 02/15/20 02/15/20 05:58 05:58 05:58 WBC 4.13 L RBC 3.53 L Hgb 9.7 L Hct 30.4 L MCV 86.1 MCH 27.5 MCHC 31.9 L RDW Std Deviation 43.3 RDW Coeff of Lashawn 13.9 Plt Count 165 MPV 9.1 Immature Gran % (Auto) 0.0 Neut % (Auto) 58.7 Lymph % (Auto) 30.5 [place] % (Auto) 7.5 Eos % (Auto) 3.1 Baso % (Auto) 0.2 Neut # (Auto) 2.42 Lymph # (Auto) 1.26 [place] # (Auto) 0.31 Eos # (Auto) 0.13 Baso # (Auto) 0.01 Immature Gran # (Auto) 0.00 PT 21.9 H INR 2.2 H Sodium 143 Potassium 4.7 D Chloride 113 H Carbon Dioxide 27 Anion Gap 3.0 BUN 12 Creatinine 0.89 Est Cr Clr Drug Dosing 62.3 Est GFR ( Amer) 76.6 Est GFR (Non-Af Amer) 66.1 BUN/Creatinine Ratio 13.3 Glucose 80 Calcium 8.6 02/15/20 12:33 WBC 4.12 L RBC 3.59 L Hgb 9.7 L Hct 31.5 L MCV 87.7 MCH 27.0 MCHC 30.8 L RDW Std Deviation 44.9 RDW Coeff of Lashawn 14.0 Plt Count 172 MPV 9.1 Immature Gran % (Auto) 0.2 Neut % (Auto) 67.5 Lymph % (Auto) 25.5 [place] % (Auto) 4.9 Eos % (Auto) 1.7 Baso % (Auto) 0.2 Neut # (Auto) 2.78 Lymph # (Auto) 1.05 L [place] # (Auto) 0.20 Eos # (Auto) 0.07 Baso # (Auto) 0.01 Immature Gran # (Auto) 0.01 PT INR Sodium Potassium Chloride Carbon Dioxide Anion Gap BUN Creatinine Est Cr Clr Drug Dosing Est GFR ( Amer) Est GFR (Non-Af Amer) BUN/Creatinine Ratio Glucose Calcium PG Care Time/CCT Total # of Minutes Spent Total Time Spent with Patient: Total time spent is greater than 50% in coordination of care (as documented) at patient's floor/unit and/or counseling patient: Coding Level of Care Code 12437 Subseq Obs Care Lvl 2 Diagnoses Lower GI bleeding K92.2 Acute blood loss anemia D62 History of deep vein thrombosis (DVT) of lower extremity Z86.718 Benign essential hypertension I10 Presence of IVC filter Z95.828
[2020-02-15 20:57] LABS: Basophils # (auto) 0.01 K/uL (0-0.2); Basophils % (auto) 0.2 %; Eosinophils # (auto) 0.07 K/uL (0-0.5); Eosinophils % (auto) 1.7 %; Hematocrit (blood only) 30.5 % (37-47); Hemoglobin 9.4 g/dL (12.0-16.0); Lymphocytes # (auto) 1.28 K/uL (1.2-3.4); Lymphocytes % (auto) 30.8 %; Mean Corpuscular Hemoglobin 26.7 pg (25-34); Mean Corpuscular Hgb Conc 30.8 g/dL (32-36); Mean Corpuscular Volume 86.6 fL (80-100); Mean Platelet Volume 9.1 fL (7.4-10.4); Monocytes % (auto) 7.2 %; Neutrophils % (auto) 60.1 %; Platelet Count 187 K/uL (130-400); RDW Coefficient of Variation 13.9 % (11.5-14.5); RDW Standard Deviation 44.2 fL (36.4-46.3); Red Blood Count 3.52 M/uL (4.2-5.4); White Blood Count 4.16 K/uL (4.8-10.8)
[2020-02-16] MEDS: LAVAGE SOLUTION 4000ML PO SCH ×2 (06:21→17:34)
[2020-02-16] MEDS: LOSARTAN POTASSIUM 50 MG TAB PO SCH (07:52)
[2020-02-16] MEDS: DULoxetine HCL 60 MG CAP PO SCH (07:52)
[2020-02-16] MEDS: PANTOprazole 40 MG TAB PO SCH (07:53)
[2020-02-16] MEDS: FAMOTIDINE 20 MG TAB PO SCH (07:53)
[2020-02-16] MEDS: amLODIPine BESYLATE 5 MG TAB PO SCH (07:53)
[2020-02-16 08:34] LABS: Hematocrit (blood only) 30.9 % (37-47); Hemoglobin 9.6 g/dL (12.0-16.0)
[2020-02-16 08:40] LABS: INR 1.5 (0.9-1.1); Prothrombin Time 15.7 Seconds (9.0-12.0)
[2020-02-16 09:03] LABS: BUN Creatinine Ratio 8.7 (10-20); Calcium 9.1 mg/dl (8.5-10.1); Creatinine Clr Calc Pharmacy 60.8 ml/min; Est GFR (African American) 74.6; Est GFR (Non-African American) 64.4
--- NOTE | 2020-02-16 09:07 | Gastroenterology Progress Note ---
Date of Service February 16, 2020 Assessment & Plan (1) Chronic anticoagulation: (2) Anemia: (3) Lower GI bleeding: Hemoglobin 9.6, hematocrit 30.9 this morning. Patient has history of colonoscopy demonstrating diverticulosis and internal hemorrhoids. She is on chronic anticoagulation with warfarin (currently on hold). Presented to ED with increased bloody stools. N.p.o. after 11 AM today. Colonoscopy today. Procedural risks reviewed. Please refer to supervising physician addendum for further recommendations. Admission and Anticipated Discharge Date Admission Date: February 14, 2020 Subjective Patient awake and sitting upright in bed. Tolerating colonoscopy prep. States she has some nausea with prep. Was given nausea medication prior to my speaking to the patient. Denies further blood in stools. Denies abdominal pain, nausea, or vomiting. Review of Systems Review of Systems: All systems reviewed & are unremarkable except as noted in Subjective Physical Exam Constitutional: WD/WN, vitals as above Eyes: no eyelid abnormality and no conjunctival abnormality ENMT: Ears: no external ear abnormality Nose: no external nose abnormality Neck: normal visual inspection and trachea midline Respiratory: normal respiratory effort, lungs clear to auscultation Cardiovascular: RRR, no murmur, no edema Gastrointestinal (Abdomen): normal bowel sounds, soft, nontender, no hepatosplenomegaly Musculoskeletal: Extremities: extremities normal to inspection Neurologic: PERRL, EOMI, accommodation nl, no face palsy, no dysarthria Psychiatric: A+Ox3, euthymic affect Results & Data ([facility]) Vital Signs (Past 12 Hours) Vital Signs Temp Pulse Pulse Pulse Resp BP BP 02/16/20 07:51 36.6 C 67 18 137/78 02/16/20 07:40 84 132/84 02/16/20 07:09 66 02/16/20 03:32 36.8 C 69 16 138/85 02/15/20 22:20 68 02/15/20 22:11 36.6 C 77 18 132/79 Pulse Ox 02/16/20 07:51 99 02/16/20 07:40 02/16/20 07:09 02/16/20 03:32 97 02/15/20 22:20 02/15/20 22:11 98 Laboratory Results - last 24 hr 02/15/20 02/15/20 02/16/20 12:33 20:32 08:04 WBC 4.12 L 4.16 L RBC 3.59 L 3.52 L Hgb 9.7 L 9.4 L Hct 31.5 L 30.5 L MCV 87.7 86.6 MCH 27.0 26.7 MCHC 30.8 L 30.8 L RDW Std Deviation 44.9 44.2 RDW Coeff of Lashawn 14.0 13.9 Plt Count 172 187 MPV 9.1 9.1 Immature Gran % (Auto) 0.2 0.0 Neut % (Auto) 67.5 60.1 Lymph % (Auto) 25.5 30.8 [place] % (Auto) 4.9 7.2 Eos % (Auto) 1.7 1.7 Baso % (Auto) 0.2 0.2 Neut # (Auto) 2.78 2.50 Lymph # (Auto) 1.05 L 1.28 [place] # (Auto) 0.20 0.30 Eos # (Auto) 0.07 0.07 Baso # (Auto) 0.01 0.01 Immature Gran # (Auto) 0.01 0.00 PT 15.7 H INR 1.5 H Sodium Potassium Chloride Carbon Dioxide Anion Gap BUN Creatinine Est Cr Clr Drug Dosing Est GFR ( Amer) Est GFR (Non-Af Amer) BUN/Creatinine Ratio Glucose Calcium 02/16/20 02/16/20 08:04 08:15 WBC RBC Hgb 9.6 L Hct 30.9 L MCV MCH MCHC RDW Std Deviation RDW Coeff of Lashawn Plt Count MPV Immature Gran % (Auto) Neut % (Auto) Lymph % (Auto) [place] % (Auto) Eos % (Auto) Baso % (Auto) Neut # (Auto) Lymph # (Auto) [place] # (Auto) Eos # (Auto) Baso # (Auto) Immature Gran # (Auto) PT INR Sodium Pending Potassium Pending Chloride Pending Carbon Dioxide Pending Anion Gap Pending BUN Pending Creatinine Pending Est Cr Clr Drug Dosing Pending Est GFR ( Amer) Pending Est GFR (Non-Af Amer) Pending BUN/Creatinine Ratio Pending Glucose Pending Calcium Pending (1) Anemia Anemia type: unspecified type Qualified Code(s): D64.9 - Anemia, unspecified
[2020-02-16] MEDS: NSS + 20MEQ KCL 20 MEQ/1,000 ML BAG IV SCH ×2 (09:30→17:37)
[2020-02-16 14:42] VITALS: TEMP 98.2
[2020-02-16] MEDS ORDERED: ATROPINE SULFATE 0.1 MG/ML 10ML SYR IV PRN (14:48)
[2020-02-16] MEDS ORDERED: ePHEDrine sulfate 50 MG/ML AMP IV PRN (14:48)
--- NOTE | 2020-02-16 14:48 | Anesthesiology Consultation ---
Date of Service February 16, 2020 Assessment & Plan ASA ASA3 Proposed Anesthesia Anesthesia Type: MAC Risk / Benefits Reviewed With: PT / POA / Parent / Guardian, Accepts Plan and Informed Consent Obtained History Surgery Operation Date: 02/16/20 15:30 Proposed Procedures p Colonoscopy Dr Lashae Bhardwaj Height/Weight Height: 5 ft 5 in Weight: 79.5 kg Allergies Allergy/AdvReac Type Severity Reaction Status Date / Time No Known Drug Allergies Allergy Verified 02/16/20 14:35 Medications Home Medications Medication Instructions Recorded Confirmed Last Taken duloxetine 60 mg capsule,delayed 60 mg PO QAM 03/06/19 02/14/20 06/21/19 release famotidine 20 mg tablet 20 mg PO BID tab 03/06/19 02/14/20 06/21/19 lorazepam 0.5 mg tablet 0.5 mg PO DAILY PRN #30 tab 05/28/19 02/14/20 06/21/19 calcium carbonate-vitamin D3 1 cap PO BID 06/22/19 02/14/20 Unknown [Calcium 600 + D(3)] losartan 100 mg tablet 100 mg PO DAILY #90 tab 12/11/19 02/14/20 Unknown amlodipine 5 mg tablet 5 mg PO DAILY #90 tab 01/07/20 02/14/20 Unknown hydrochlorothiazide 12.5 mg PO DAILY 02/14/20 02/14/20 Unknown potassium gluconate 595 mg PO DAILY 02/14/20 02/14/20 Unknown warfarin 2.5 mg PO 6XWK 02/14/20 02/16/20 02/14/20 17:00 warfarin 5 mg PO WK 02/14/20 02/16/20 02/10/20 Active Medications Generic Name Dose Route Start Last Admin Trade Name Freq PRN Reason Stop Dose Admin Acetaminophen 650 mg 02/15/20 00:47 02/15/20 18:05 Acetaminophen 325 Mg Tab PO 03/16/20 00:46 650 mg Q4H PRN Administration Pain or Fever Amlodipine Besylate 5 mg 02/15/20 09:00 02/16/20 07:53 Amlodipine Besylate 5 Mg Tab PO 03/16/20 08:59 5 mg DAILY ALFRED Administration Duloxetine HCl 60 mg 02/15/20 09:00 02/16/20 07:52 Duloxetine Hcl 60 Mg Cap PO 03/16/20 08:59 60 mg QAM ALFRED Administration Famotidine 20 mg 02/15/20 09:00 02/16/20 07:53 Famotidine 20 Mg Tab PO 03/16/20 08:59 20 mg BID ALFRED Administration Hydrochlorothiazide 12.5 mg 02/15/20 09:00 02/15/20 07:29 Hydrochlorothiazide 25 Mg Tab PO 03/16/20 08:59 12.5 mg DAILY ALFRED Administration Potassium Chloride/Sodium Chloride 20 meq in 1,000 mls @ 100 mls/hr 02/15/20 00:47 02/16/20 14:43 Normal Saline W/20 Meq Kcl IV 03/16/20 00:46 0 mls/hr .Q10H ALFRED Infusion Lorazepam 0.5 mg 02/15/20 00:47 02/16/20 07:53 Lorazepam 0.5 Mg Tab PO 03/16/20 00:46 0.5 mg DAILY PRN Administration anxiety Losartan Potassium 100 mg 02/15/20 09:00 02/16/20 07:52 Losartan Potassium 50 Mg Tab PO 03/16/20 08:59 100 mg DAILY ALFRED Administration Pantoprazole Sodium 40 mg 02/15/20 00:47 02/16/20 07:53 Pantoprazole 40 Mg Tab PO 03/16/20 00:46 40 mg BID ALFRED Administration Polyethylene Glycol/Electrolytes 8 dose 02/15/20 18:00 02/16/20 06:21 Lavage Solution 4000ml PO 03/16/20 17:59 8 dose 0700,1800 ALFRED Administration NPO Date Last Intake of Fluids: 02/16/20 Time Last Intake of Fluids: 11:00 Date Last Intake of Solids: 02/14/20 Time Last Intake of Solids: 15:30 Past Medical History Medical History Acid reflux Anemia Anxiety Benign essential hypertension Chronic anticoagulation Depression Gallstones History of blood clots History of deep vein thrombosis (DVT) of lower extremity (06/2019) RLE Hyperlipidemia Exercise / Class Metabolic Activity II 4-5 Yardwork/Stairs/Walk up hill Past Family History Family History Mother Cardiac disorder Hypertension Myocardial infarction Heart disease Grandmother Breast cancer Cancer Father Myocardial infarction Hypertension Heart disease Denies family history of Ovarian cancer Prostate cancer Colorectal cancer Past Surgical History Surgical History H/O section History of small bowel obstruction (2008) Hx of breast reduction, elective (2011) Hx of hysterectomy (1991) S/P cataract extraction (12/2019) b/l eyes Past Anesthesia History No Hx of Anesthesia Complications and No Family Hx of Anesthesia Complications History of PONV No Hx of PONV and No Hx of Motion Sickness Social History Smoking Status: Unknown if ever smoked Hx Alcohol Use: No Hx Substance Use: No Review of Systems denies fever/cough/ colds/ chest pain/ SOB/ PAUL denies PAUL Physical Exam Vital Signs Last Vital Signs Temp 36.8 C 02/16/20 14:38 Pulse 76 02/16/20 14:38 Resp 18 02/16/20 14:38 BP 166/81 H 02/16/20 14:38 Pulse Ox 99 02/16/20 14:38 ENMT Mouth: no TMJ abnormality and no dentition abnormality Thyromental Distance: > or= 3.5 Finger Breadths Mallampati Class: II Neck neck extension not limited Respiratory normal respiratory effort; no respiratory distress Auscultation: lungs clear to auscultation bilaterally Cardiovascular Rate/Rhythm: regular rate and regular rhythm Neurologic moves all extremities Psychiatric Orientation: alert and oriented x 3 Testing Laboratory Results 02/16/20 08:15 02/16/20 08:04 PT 15.7 Seconds (9.0-12.0) H 02/16/20 08:04 INR 1.5 (0.9-1.1) H 02/16/20 08:04 Urine Color Yellow 02/14/20 19:45 Urine Appearance Clear (Clear) 02/14/20 19:45 Urine pH 5.0 (4.5-7.5) 02/14/20 19:45 Ur Specific [place] 1.014 (1.000-1.030) 02/14/20 19:45 Urine Protein Negative (Negative) 02/14/20 19:45 Urine Glucose (UA) Negative (Negative) 02/14/20 19:45 Urine Ketones Negative (Negative) 02/14/20 19:45 Urine Nitrite Negative (Negative) 02/14/20 19:45 Ur Leukocyte Esterase 1+ (Negative) H 02/14/20 19:45 Urine WBC (Auto) 5-10 /hpf (0-5) H 02/14/20 19:45 Urine RBC (Auto) 0-4 /hpf (0-4) 02/14/20 19:45 U Hyaline Cast (Auto) 0 /lpf (0-5) 02/14/20 19:45 U Epithel Cells (Auto) 5-10 /lpf (0-5) H 02/14/20 19:45 Urine Bacteria (Auto) Negative (Negative) 02/14/20 19:45
[2020-02-16] MEDS ORDERED: LIDOCAINE HCL 2% 2 ML VIAL/AMP(20MG/ML) INFIL ONE ×2 (15:17)
[2020-02-16] MEDS ORDERED: MIDAZOLAM HCL 1 MG/ML 2ML VIAL ONE (15:17)
[2020-02-16] MEDS ORDERED: PROPOFOL IV EMULSION 10 MG/ML 20 ML VIAL IV ONE (15:18)
[2020-02-16] MEDS ORDERED: ONDANSETRON INJ 2 MG/ML 2 ML VIAL ONE (15:18)
--- NOTE | 2020-02-16 15:53 | History & Physical Report ---
Date of Service February 16, 2020 Assessment & Plan Admission and Anticipated Discharge Date Admission Date: February 14, 2020 History of Present Illness Chief Complaint: Rectal bleeding Primary Care Provider: Cecelia Paulson DO For colonoscopy Allergies Allergy/AdvReac Type Severity Reaction Status Date / Time No Known Drug Allergies Allergy Verified 02/16/20 14:35 Home Medications Home Medications Medication Instructions Recorded Confirmed Type duloxetine 60 mg capsule,delayed 60 mg PO QAM 03/06/19 02/14/20 History release famotidine 20 mg tablet 20 mg PO BID tab 03/06/19 02/14/20 History lorazepam 0.5 mg tablet 0.5 mg PO DAILY PRN #30 tab 05/28/19 02/14/20 Rx calcium carbonate-vitamin D3 1 cap PO BID 06/22/19 02/14/20 History [Calcium 600 + D(3)] losartan 100 mg tablet 100 mg PO DAILY #90 tab 12/11/19 02/14/20 Rx amlodipine 5 mg tablet 5 mg PO DAILY #90 tab 01/07/20 02/14/20 Rx hydrochlorothiazide 12.5 mg PO DAILY 02/14/20 02/14/20 History potassium gluconate 595 mg PO DAILY 02/14/20 02/14/20 History warfarin 2.5 mg PO 6XWK 02/14/20 02/16/20 History warfarin 5 mg PO WK 02/14/20 02/16/20 History Past Med/Surg History Medical History Acid reflux Anemia Anxiety Benign essential hypertension Chronic anticoagulation Depression Gallstones History of blood clots History of deep vein thrombosis (DVT) of lower extremity (06/2019) RLE Hyperlipidemia Surgical History H/O section History of small bowel obstruction (2008) Hx of breast reduction, elective (2011) Hx of hysterectomy (1991) S/P cataract extraction (12/2019) b/l eyes Family History Mother Cardiac disorder Hypertension Myocardial infarction Heart disease Grandmother Breast cancer Cancer Father Myocardial infarction Hypertension Heart disease Denies family history of Ovarian cancer Prostate cancer Colorectal cancer Social History (Reviewed 02/14/20 @ 17:47 by JETT Turner Smoking Status: Unknown if ever smoked Second Hand Exposure: No; Hx Alcohol Use: No Hx Substance Use: No Preferred Language: Belarusian Communication Ability: Effective Visual Impairment: No Limitations Hearing Ability: Normal Writing Center Director Required: No Beliefs That Will Affect Care: None marital status: / Current Living Situation: Family current occupational status: retired Other Information That Helps Us Care for You: No Feels Safe at Home: Yes Safety Concerns: Feels Safe At This Time Childhood Exposure to Second-Hand Smoke: No caffeine: Yes (Coffee 1 cup per day. Tea x 2 cups per day.) during the past year weight has: remained stable Dental Care, Regularly: Yes Physical Activity Frequency: 1-2 Times per Week Seatbelt Use: always Sunscreen Use: Yes Assistive Devices: None Physical Exam Constitutional: well developed and well nourished Respiratory: normal respiratory effort Cardiovascular: Rate/Rhythm: regular rate and regular rhythm Gastrointestinal (Abdomen): Percussion/Palpation: abdomen soft Results & Data ([facility]) Vital Signs (Past 12 Hours) Vital Signs Temp Pulse Pulse Resp BP Pulse Ox 02/16/20 14:38 36.8 C 76 18 166/81 H 99 02/16/20 12:00 36.4 C L 74 18 136/79 100 02/16/20 07:51 36.6 C 67 18 137/78 99 02/16/20 07:40 84 132/84 02/16/20 07:09 66 Code Status & VTE Plan VTE Prophylaxis Plan VTE Prophylaxis will be ordered: Yes
--- NOTE | 2020-02-16 16:18 | GI REPORT ---
Patient Name: Christianne Bright Procedure Date: 02/16/2020 3:59 PM Date of : 1950 Admit Type: Inpatient Age: 69 Gender: Female Attending MD: Wilner Bhardwaj MD Procedure: Colonoscopy Providers: Wilner Bhardwaj MD Referring MD: Referred Self, Dennis Caba Indications: Rectal bleeding Medicines: Propofol total dose 180 mg IV, Lidocaine 60 mg IV Complications: No immediate complications. Estimated Blood Loss: Estimated blood loss: none. Procedure: Pre-Anesthesia Assessment: - Prior to the procedure, a History and Physical was performed, and patient medications, allergies and sensitivities were reviewed. The patient's tolerance of previous anesthesia was reviewed. - The risks and benefits of the procedure and the sedation options and risks were discussed with the patient. All questions were answered and informed consent was obtained. After I obtained informed consent, the scope was passed under direct vision. Throughout the procedure, the patient's blood pressure, pulse, and oxygen saturations were monitored continuously. The Colonoscope was introduced through the anus and advanced to the ileocolonic anastomosis. The colonoscopy was performed without difficulty. The patient tolerated the procedure well. The quality of the bowel preparation was excellent. Findings: A few small-mouthed diverticula were found in the sigmoid colon. There was evidence of a prior end-to-side ileo-colonic anastomosis in the ascending colon. This was patent and was characterized by healthy appearing mucosa. The anastomosis was not traversed. No blood in the colon. Non-bleeding external and internal hemorrhoids were found during endoscopy. The hemorrhoids were Grade III (internal hemorrhoids that prolapse but require manual reduction). Impression: - Diverticulosis in the sigmoid colon. - Patent end-to-side ileo-colonic anastomosis, characterized by healthy appearing mucosa. - Non-bleeding external and internal hemorrhoids. - No specimens collected. Recommendation: - Return patient to [facility] for ongoing care. Wilner Bhardwaj M.D. Wilner Bhardwaj MD 02/16/2020 4:18:12 PM This report has been signed electronically. Note Initiated On: 02/16/2020 3:59 PM Number of Addenda: 0 I attest to the content of the Intraoperative Record and orders documented therein, exceptions below {[id number]}
[2020-02-16 16:45] VITALS: BP 134/72; PULSE 68; O2SAT 97
--- NOTE | 2020-02-16 16:48 | Anesthesiology Progress Note ---
Date of Service February 16, 2020 Anesthesia Post Procedure Vital Signs Vital Signs: Temp Pulse Pulse Pulse Resp BP BP 02/16/20 16:44 68 20 134/72 02/16/20 16:30 69 18 129/76 02/16/20 16:14 73 16 125/64 02/16/20 14:38 36.8 C 76 18 166/81 H 02/16/20 12:00 36.4 C L 74 18 136/79 02/16/20 07:51 36.6 C 67 18 137/78 02/16/20 07:40 84 132/84 02/16/20 07:09 66 02/16/20 03:32 36.8 C 69 16 138/85 02/15/20 22:20 68 02/15/20 22:11 36.6 C 77 18 132/79 02/15/20 18:57 37.0 C 77 18 125/75 Pulse Ox 02/16/20 16:44 97 02/16/20 16:30 99 02/16/20 16:14 99 02/16/20 14:38 99 02/16/20 12:00 100 02/16/20 07:51 99 02/16/20 07:40 02/16/20 07:09 02/16/20 03:32 97 02/15/20 22:20 02/15/20 22:11 98 02/15/20 18:57 96 Transfer of Care Handoff Completed per policy Notes Mental Status: alert / awake / arousable Patient Amnestic to Procedure: Yes Nausea / Vomiting: adequately controlled Pain: adequately controlled Airway Patency, RR, SpO2: stable & adequate BP & HR: stable & adequate Hydration State: stable & adequate Anesthetic Complications: no major complications apparent
--- NOTE | 2020-02-16 17:37 | Progress Notes ---
DATE: 02/16/2020 This note is in conjunction with Amaya Pennington. The patient presented for a colonoscopy this afternoon following a bowel prep for rectal bleeding. The bowel prep was excellent and the patient was found to have a right colectomy, which has healed well and appears healthy. She has a few small sigmoid diverticula. There was not any blood anywhere in the colon. She does have very prominent internal and external hemorrhoids; however, which I believe is the source of her bleeding. Following the procedure, I recommended that the patient go back on Coumadin and resume eating and see how she does. If she continues to have bleeding, we would recommend that she see one of our colorectal surgeons from [place] to consider treatment for the hemorrhoids, so that they do not continue to bleed going forward as she will continuously need to be on Coumadin.
--- NOTE | 2020-02-16 18:32 | Discharge Summary ---
Date of Service February 16, 2020 Admission HPI Per Admitting Provider For colonoscopy Discharge Exam Constitutional well developed and well nourished; no acute distress and no altered mental status ENMT external ear and nose normal, oropharynx normal Respiratory normal respiratory effort, lungs clear to auscultation Cardiovascular Rate/Rhythm: regular rate and regular rhythm Heart Sounds: normal S1 and normal S2; no murmur Vessels: posterior tibial pulses present and dorsalis pedis pulses present; no JVD Extremities: no edema Gastrointestinal (Abdomen) normal bowel sounds, soft, nontender, no hepatosplenomegaly Psychiatric A+Ox3, euthymic affect Discharge Data Allergies Allergy/AdvReac Type Severity Reaction Status Date / Time No Known Drug Allergies Allergy Verified 02/16/20 14:35 Consultations 02/14/20 20:43 ED Decision to Admit Stat 02/15/20 00:47 Consult Gastroenterology Routine Procedures Performed Operation Date: 02/16/20 15:30 Actual Procedures p Colonoscopy - Wilner Bhardwaj Ordered Studies 02/14/20 17:44 CT head/brain wo con Stat Hospital Course (1) Lower GI bleeding: diverticular vs hemorrhoids vs other. mild associated acute blood loss anemia. GI consult appreciated; colonoscopy tomorrow. prep tonight. NPO after MN. (2) Acute blood loss anemia: 2nd to Lower GI bleeding. see above. serial H/H's. holding coumadin. INR am. (3) History of deep vein thrombosis (DVT) of lower extremity: noted. has IVC filter in place. holding coumadin. INR am. (4) Benign essential hypertension: controlled with amlodipine, HCTZ, and ARB. may need to hold 1 or more in setting of acute blood loss anemia. (5) Presence of IVC filter: noted Discharge Plan Discharge Items Patient Disposition: Home - Self-Care Reason For Visit: Blood per rectum Discharge Diagnosis: Blood per rectum - likely due to hemorrhoids. Colonoscopy performed by Dr Bhardwaj on 02/16/20. This showed internal and external hemorrhoids along with small amount of diverticulosis in the last portion of the colon. Activity: Resume your previous activity Non-emergency contact: Primary Care Provider Call non-emergency contact if: you have any medication questions, your symptoms worsen and you have a fever Follow-up/Referrals: Cecelia Paulson DO [Primary Care Provider] - (see Dr Paulson within 1 week ) Wilner Bhardwaj [Physician] - (please call Dr Bhardwaj on an as needed basis) Diet: Heart Healthy Addtl Attending Provider Instructions: You were admitted to the hospital due to blood per rectum. The bleeding caused mild anemia (low red blood cells). Following admission your bleeding stopped, and your hemoglobin leveled off at ~9.5. Dr Wilner Bhardwaj from [facility] saw you in consult and performed a colonoscopy on 02/16/20 with results as noted above. Dr Bhardwaj feels that your recent bleeding was likely due to your hemorrhoids. Recommendations: 1. Use anusol suppositories TWICE A DAY for 7 days. Start with your first one tonight. The suppositories will help shrink the hemorrhoids and hopefully lead to less bleeding. 2. Take a fiber supplement daily. [id number] Metamucil is a good option. Fiber will help prevent the development of more diverticular disease and help soften the stool which will ultimately help your hemorrhoids. 3. Take niwr-acf-cdwucme ferrous sulfate (iron) 325mg once daily for 2-3 months to restore your hemoglobin (red cell) levels back to normal. 4. STOP your hydrochlorothiazide for now. Your blood pressures have been normal without it. Dr Paulson can determine if you need to go back on it in the future. 5. Resume your coumadin per previous dosing schedule upon return home. Your INR today is 1.5. If you continue to have bleeding from the hemorrhoids you may need to see a colorectal surgeon. A colorectal surgeon comes from [facility] each month and Dr Bhardwaj could help arrange such a referral if needed. Follow-up - * see Dr Paulson within 1 week. * call Dr Bhardwaj's office if you have recurrent or ongoing bleeding issues. Return to [facility] if - * you have severe abdominal pain * you have significant/large amount of rectal bleeding * you have dizziness or lightheadedness especially in conjunction with the rectal bleeding * any other concerns Pending Studies at Discharge: No Stand-Alone Forms: My [facility] ZBD Displays, Smoking Cessation Medications and DC Order Prescriptions: New hydrocortisone acetate [Anusol-HC] 25 mg suppository [address] BID 7 Days Qty: 24 RF: 0 ferrous sulfate 325 mg (65 mg iron) tablet 325 mg PO DAILY Qty: 30 RF: 2 Continued losartan 100 mg tablet 100 mg PO DAILY Qty: 90 RF: 1 amlodipine 5 mg tablet 5 mg PO DAILY Qty: 90 RF: 1 lorazepam [Ativan] 0.5 mg tablet 0.5 mg PO DAILY PRN (Reason: anxiety) Qty: 30 RF: 0 duloxetine 60 mg capsule,delayed release(DR/EC) 60 mg PO QAM RF: 0 famotidine 20 mg tablet 20 mg PO BID RF: 0 Calcium 600 + D(3) 600 mg calcium- 200 unit Capsule 1 cap PO BID RF: 0 warfarin 5 mg tablet 5 mg PO WK RF: 0 warfarin 5 mg tablet 2.5 mg PO [id number] RF: 0 potassium gluconate 595 mg (99 mg) Tablet 595 mg PO DAILY RF: 0 Discontinued hydrochlorothiazide 12.5 mg tablet 12.5 mg PO DAILY RF: 0 Discharge Orders: Discharge Order (Routine); Ordered 02/16/20 Ordered By: Dennis Fernandez/Other Patient Handouts: ED Hemorrhoids, ED Diverticulosis Admission Data Admit Date/Time: 02/14/20 21:31 Attending Provider: Dennis Caba Admit Provider: Antonio Thomason Primary Care Provider: Cecelia Paulson Other Providers: Paul Calderon ; Wilner Bhardwaj Other Interventions: Discharge Summary Assessment (RN) Last Done: 02/16/20 16:40 Coding Diagnoses Lower GI bleeding K92.2 Acute blood loss anemia D62 History of deep vein thrombosis (DVT) of lower extremity Z86.718 Benign essential hypertension I10 Presence of IVC filter Z95.828
--- NOTE | 2020-02-21 21:09 | Billing Data ---
Date of Service February 21, 2020 Coding Level of Care Code 74499 Initial Inpt Care Lvl 3
== END 2020-02-16 19:42 | disposition home or self-care (01) ==
LOC: ED 17:25 → 2N 17:25 → SUATTDRO 21:31 → 2N 02-15 00:06

== ENCOUNTER 2022-02-22 05:34 | Inpatient (IN) ==
--- NOTE | 2022-02-16 12:23 | Anesthesiology Consultation ---
Date of Service February 16, 2022 Assessment & Plan (1) Encounter for pre-operative examination: - COVID screening: Per assessment on 02/16: No known COVID-19 positive contacts or current COVID-19 related symptoms. Travel screen negative. Patient vaccinated. At surgeon discretion if preop Covid testing being done. - Check coags AM DOS (warfarin instructions per surgeon/prescriber) Chart Review Chart Review: Acceptable Risk for Surgery and Patient NOT seen in Pre Admission Testing History Surgery Operation Date: 02/22/22 10:25 Proposed Procedures p Laparoscopic Cholecystectomy with Cholangiogram, Possible Open - Earnest Álvarez MD, FACS Height/Weight Height: 5 ft 5 in Weight: 76.657 kg Allergies Allergy/AdvReac Type Severity Reaction Status Date / Time No Known Drug Allergies Allergy Verified 02/16/22 10:58 Medications Home Medications Medication Instructions Recorded Confirmed Last Taken duloxetine 60 mg capsule,delayed 60 mg PO QAM 03/06/19 02/16/22 06/21/19 release famotidine 20 mg tablet 20 mg PO BID 03/06/19 02/16/22 06/21/19 lorazepam 0.5 mg tablet (Ativan) 0.5 mg PO DAILY PRN anxiety #30 05/28/19 02/16/22 06/21/19 tabs calcium carbonate 600 mg-vitamin 1 cap PO BID 06/22/19 02/16/22 Unknown D3 5 mcg (200 unit) capsule (Calcium 600 + D(3)) warfarin 5 mg tablet 2.5 mg PO QPM 02/14/20 02/16/22 02/14/20 17:00 warfarin 5 mg tablet 5 mg PO WK #30 tabs 06/26/21 02/16/22 Unknown hydrochlorothiazide 12.5 mg tablet 12.5 mg PO DAILY #90 tabs 10/03/21 02/16/22 Unknown losartan 100 mg tablet 100 mg PO DAILY #90 tabs 12/25/21 02/16/22 Unknown cholecalciferol (vitamin D3) 50 50 mcg PO DAILY #30 caps 01/05/22 02/16/22 Unknown mcg (2,000 unit) capsule amlodipine 5 mg tablet 5 mg PO DAILY #90 tabs 01/31/22 02/16/22 Unknown ascorbic acid (vitamin C) 25 mg 25 mg PO QAM 02/16/22 02/16/22 Unknown tablet biotin 1 mg tablet 1 mg PO QAM 02/16/22 02/16/22 Unknown omega-3 fatty acids 1,000 mg PO QAM 02/16/22 02/16/22 Unknown Past Medical History Medical History (Updated 02/16/22 @ 12:19 by Thais Wilkinson) Anemia Anxiety Depression Gallstones History of GI bleed secondary to hemorrhoids (2019) Hx of deep venous thrombosis Right calf (2008), on warfarin daily Hx pulmonary embolism 2002 Hypertension Past Family History Family History Mother Cardiac disorder Hypertension Myocardial infarction Heart disease Grandmother Breast cancer Cancer Father Myocardial infarction Hypertension Heart disease Denies family history of Ovarian cancer Prostate cancer Colorectal cancer Past Surgical History Surgical History (Updated 02/16/22 @ 11:31 by Thais Wilkinson) H/O section H/O colonoscopy (2019) History of small bowel obstruction (2008) Hx of breast reduction, elective (2011) Hx of hysterectomy (1991) S/P cataract extraction (12/2019) b/l eyes S/P IVC filter 2002 Social History Smoking Status: Never smoker Do You Dip or Chew Tobacco: No Hx Alcohol Use: No Hx Substance Use: No substance use type: does not use Lab Results Anesthesia Preop Results Results Anesthesia Widget: WBC 5.27 K/ul (4.8-10.8) 02/15/22 Hgb 14.6 g/dl (12.0-16.0) 02/15/22 Hct 42.7 % (34.1-44.9) 02/15/22 Plt 190 K/uL (130-400) 02/15/22 Na 142 mmol/L (136-145) 02/15/22 K 3.9 mmol/L (3.5-5.1) 02/15/22 Cl 106 mmol/L (98-107) 02/15/22 CO2 30 mmol/L (21-32) 02/15/22 BUN 14 mg/dl (6-23) 02/15/22 Creat 0.90 mg/dl (0.6-1.2) 02/15/22 Glucose Level 90 mg/dl (70-99(Fasting)) 02/15/22 PT 23.0 Seconds (9.0-12.0) H 02/02/22 INR 2.3 (0.9-1.1) H 02/02/22 TSH 2.139 uIu/ml (0.300-4.500) 01/25/22 Testing Electrocardiogram Date: 02/14/22 SR at 77bpm. Marked LAD. NS TWA. Echocardiogram Date: 05/18/15 EF 50-55%. Mild LVH. Trace to mild MR. Mild TR. Trace to mild PI. Grade I DD. No RWMA. Stress Test Date: 11/28/15 Stress EKG negative for ischemia. Nuclear imaging findings with no evidence of myocardial ischemia or infarction. EF 68%.
[2022-02-22] MEDS ORDERED: LR 15ML/HR IV SCH (06:00)
--- NOTE | 2022-02-22 06:16 | History & Physical Bridge Note ---
Date of Service February 22, 2022 History & Physical Bridge Note I have examined the patient, reviewed the History & Physical and in the interval since the performance of the History & Physical I have noted the following changes of clinical significance: no changes noted Sister is with her at the bedside Lungs are clear to auscultation and percussion Heart no murmurs no gallops Abdomen benign All question answered
[2022-02-22 06:17] LABS: Partial Thromboplastin Ratio 0.9; Partial Thromboplastin Time 24.6 Seconds (21.0-31.0); Prothrombin Time 10.3 Seconds (9.0-12.0)
[2022-02-22] MEDS ORDERED: ONDANSETRON INJ 2 MG/ML 2 ML VIAL ONE ×2 (06:42→10:19)
[2022-02-22] MEDS ORDERED: ROCURONIUM BROMIDE 10 MG/ML 5 ML VIAL IV ONE ×7 (06:42→09:27)
[2022-02-22] MEDS ORDERED: DEXAMETHASONE SOD INJ 4 MG/ML VIAL ONE (06:42)
[2022-02-22] MEDS ORDERED: LIDOCAINE 2% MPF LOCAL 5 ML VIAL INFIL ONE (06:42)
[2022-02-22] MEDS ORDERED: PROPOFOL IV EMULSION 10 MG/ML 20 ML VIAL IV ONE (06:42)
[2022-02-22] MEDS ORDERED: MIDAZOLAM HCL 1 MG/ML 2ML VIAL ONE (06:43)
[2022-02-22] MEDS ORDERED: fentaNYL citrate 100 MCG/2 ML VIAL ONE ×2 (06:43→07:48)
[2022-02-22] MEDS ORDERED: ONDANSETRON INJ 2 MG/ML 2 ML VIAL IV PRN (06:47)
[2022-02-22] MEDS ORDERED: ATROPINE SULFATE 0.1 MG/ML 10ML SYR IV PRN (06:47)
[2022-02-22] MEDS ORDERED: ePHEDrine sulfate 50 MG/ML AMP IV PRN (06:47)
[2022-02-22] MEDS ORDERED: PROMETHAZINE HCL 12.5 MG in SODIUM CHLORIDE 0.9% 50 ML IV PRN (06:47)
[2022-02-22] MEDS ORDERED: LIDOCAINE 1%/EPINEPHRINE 1:100,000 50 ML VIAL ONE (07:07)
[2022-02-22] MEDS ORDERED: HYDROmorphone INJ 1 MG/ML SYRINGE ONE (08:03)
[2022-02-22] MEDS ORDERED: SUGAMMADEX SODIUM 200 MG/2 ML VIAL IV ONE (10:15)
[2022-02-22] MEDS ORDERED: OPTIRAY 300 IV ONE (10:50)
--- NOTE | 2022-02-22 11:02 | Post Operative Brief Note ---
PG Immediate Post Op with CF Date of Surgery February 22, 2022 Pre & Post Diagnosis Operation Date: 02/22/22 07:00 Pre-Op Diagnosis: Gallstones Post-Op Diagnosis: Gallstones I identified the patient and participated in the time-out.: Yes Procedure Operation Date: 02/22/22 07:00 Actual Procedures p Attempted Laparoscopic Cholecystectomy Converted to Open Cholecystectomy with Cholangiogram, Repair Small Bowel and Colonic Enterotomy, Lysis of Dense Abdominal Adhesions(Not Applicable) - Earnest Álvarez MD, FACS Surgeon Earnest Álvarez MD, FACS Rodding Machine Tender jimbo samaniego Estimated Blood Loss 150 Findings Consistent with Post-Op Diagnosis Specimens Specimen Description: A: Gallbladder and Contents Drains Ike Drain (x2) and Jeff-Lopez Drain (x2)
--- NOTE | 2022-02-22 11:31 | Fluoroscopy Report ---
FL cholangiogram OR CLINICAL HISTORY: Intraoperative cholangiogram. COMPARISON STUDY: Right upper quadrant ultrasound January 31, 2022. FLUOROSCOPY TIME: 5 seconds. FLUOROSCOPIC IMAGES: 4 FINDINGS: Fluoroscopy was provided during intraoperative cholangiogram. Caliber of the common bile du ct is normal. There is contrast within the duodenum. Intrahepatic bile ducts are partially opacified. No filling defects within the common bile duct are identified to suggest choledocholithiasis. IVC fi lter is incidentally noted. IMPRESSION: No evidence for choledocholithiasis. ACT 112: Negative or not required by law. Electronically signed by: Javier Austin M.D. 02/22/2022 11:30 AM
[2022-02-22] MEDS: fentaNYL citrate 100 MCG/2 ML VIAL IV PRN ×8 (11:39→12:19)
--- NOTE | 2022-02-22 11:42 | Operative Report ---
PG Post Operative Report Pre & Post Diagnosis Operation Date: 02/22/22 07:00 Pre-Op Diagnosis: Gallstones Post-Op Diagnosis: Gallstones I identified the patient and participated in the time-out.: Yes Procedure Operation Date: 02/22/22 07:00 Actual Procedures p Attempted Laparoscopic Cholecystectomy Converted to Open Cholecystectomy with Cholangiogram, Repair Small Bowel and Colonic Enterotomy, Lysis of Dense Abdominal Adhesions(Not Applicable) - Earnest Álvarez MD, FACS Patient was brought into the theater general endotracheal anesthesia systemic antibiotics on board the abdomen was prepped with Betadine solution properly draped patient identified a timeout was had this point we made a small incision above the midline incision extended approximately 8 cm above the umbilical crater down to the symphysis pubis I placed a Veress needle and using the suction test appears satisfactory and negative pressure CO2 then insufflated we immediately were reading high abdominal pressures given that we started the flow rate at about 20 L/min at this point I large incision the midline more superiorly to the point that then drained and elevated the abdominal wall obtaining Jackson clamps on the linea alba elevating it small opening really unable was made at this point using a hemostat we felt that we were inside the abdomen with no obstruction at this point I tried again since we ran a place the 5 mm trocar immediately lower back with high pressures very little flow at this time I removed a 5 mm trocar and I expelled something fecal in nature therefore enlarged the incision more cephalad we had a bladder 5 cm incision over the linea alba more and I could see that there was a small enterotomy in the small bowel that was strictly adherent to the anterior abdominal wall underneath her opening I sutured the opening in 2 layers of 3-0 silk interrupted sutures then inspected the bowel again and had a posterior opening similarly small in size size of Veress needle then oversewn that again with 2 and layers of 3-0 silk suture at this point we were unable to enter the abdomen in this fashion therefore elected to go up to the subxiphoid area where I made a 5 mm incision went to the abdominal wall elevated the linea alba in that area small opening was made try to place a Veress needle again no flow was be appreciated for enlarged the incision dissected out my finger and we were unable to get into the abdomen like a significant amount anterior wall adhesions of note the patient had lower abdominal surgery in the past she did not have any upper abdominal surgery for a look enlarged the subcostal incision hoping to get into the subcutaneous tissue to the anterior rectus for open at and migrated away into the abdominal cavity we opened the incision approximately 10 cm or so went through subcutaneous tissue hard to identify the anterior rectus sheath once we identified it we opened it could identify the rectus muscle divided but the planes were very obscured the posterior rectus sheath as we opened up we were not in the peritoneum immediately we were met with a lot of omental tissue enlarged the incision even further laterally to work this time were about 15 cm again trying to enter the abdomen lateral to the rectus abdominis and again anytime we tried to find the posterior fascia and peritoneum we were unsuccessful to seem like there was no plane to justify this with large the incision more laterally at this time with about a 20 cm incision again starting more laterally trying to enter the abdomen and we had difficulty again seem like she had a hostile abdomen but given her symptomatology of gallbladder disease I pursued to try to remove the gallbladder one of the areas once we went in the posterior peritoneum we entered the colon which was strictly adherent and appeared to be above the liver we repair the enterotomy with interrupted 3-0 silk suture in 2 layer we continued working at the edge of the costal margin in the hopes that we would identify the liver finally we were able to see the edge of the liver underneath the costal margin we saw this more laterally finally we stayed away from what appeared to be colonic tissue and there was an area we were unsure whether was the gallbladder or colon adherent to the undersurface of the liver and appeared to be mostly gallbladder but to be sure I aspirated with a 19 needle and certainly we received bile the softness delineate where we were working at this point we had put the Bookwalter retractor into try to get the exposure and worked on the undersurface of the gallbladder taken down a significant amount adhesions in the area and worked our way to the neck of the gallbladder we stayed away from the colon we could see the duodenum dissected out the triangle of Marsha identified the cystic duct which is small a 5 mm clip was made approximately a small opening cystic duct was made using a Cholangiocath #4 we placed in the cystic duct x-rays were taken which showed free flow duodenal obstruction at this point the cholangiocatheter was removed the cystic duct was secured twice with 5 mm clips cystic artery was identified we clipped the right underneath the gallbladder with 2 clips proximally 1 distally the gallbladder was taken out in antegrade fashion leaving much posterior peritoneum as possible the area was then further checked hemostasis appear satisfactory throughout the procedure we had generalized oozing especially with through the omentum that we were almost faced constantly in the subcostal incision at this point I elected to drain the subcostal area with 19 Ike drain that was brought up lateral to the subcostal incision placed subhepatic reattaching skin edges with 2-0 silk suture and above that I placed another 19 Ike drain only position from that area and place it towards her initial opening in the supraumbilical area to drain the area and we thought the small bowel initially been exposed at this pointthis Ike drain the skin edges with 2-0 silk the abdomen was closed with #1 chromic try to approximate the posterior rectus and the internal Bleich in a running fashion then we closed the anterior rectus sheath with interrupted 0 PDS in running fashion f quarter inch [place] was placed subcutaneously attached to the lateral and medially leaving subcostal incision with 3-0 silk and sheyla were used to approximate the skin edges we then closed the supraumbilical incision that we had made by elevating the fascia placing a finger underneath there was no evidence of any adhesions and closed the with a interrupted 0 PDS we similarly placed a piece of the Michelle drain underneath the skin attached to skin edge of 2 silk the procedure was tolerated well by the patient only was quite long we spent a significant amount of time probably three quarters at times lysing adhesions try to get to the gallbladder therefore this should be billed a modifier Estimated blood loss 150 cc At the end the procedure I asked that a Grajeda catheter be placed Addendum Lisa Méndez was present throughout the procedure and helped the retraction exposure wound closure At the end the procedure I spoke with her Sister Candy told her what we had done in surgery and she said that the patient was concerned that we may need to open her up since she spent 2 months in intensive care unit in the past with multiple abdominal surgeries and at that time they thought they were going to lose her The certainly explained what we were dealt with today into the abdomen and noted that patient had a lower abdominal surgery and small bowel resection but never mention to me the extent of the recuperation after the small bowel resection Surgeon Earnest Álvarez MD, FACS Rag Baler jimbo samaniego Estimated Blood Loss 150 Findings Consistent with Post-Op Diagnosis Hostile abdomen chronic cholecystitis cholelithiasis Specimens Gallbladder and contents Drains 2 19 Ike drains 1 underneath the umbilical opening and 1 subhepatic leak Complications Small bowel and colonic enterotomy Indications Right upper quadrant pain symptomatic cholelithiasis Description of Procedure merda I attest to the content of the Intraoperative Record and any orders documented therein. Any exceptions are noted below.
[2022-02-22] MEDS: HYDROmorphone INJ 2 MG/ML SYR/VIAL IV PRN ×3 (12:25→12:35)
[2022-02-22] MEDS ORDERED: NALOXONE HCL 0.4 MG/1 ML VIAL/CARP IV PRN (13:35)
[2022-02-22] MEDS ORDERED: HYDROmorphone PCA 30 MG/30 ML IV PRN (13:35)
[2022-02-22] MEDS ORDERED: LORazepam 0.5 MG TAB PO PRN (13:35)
--- NOTE | 2022-02-22 13:43 | Anesthesiology Progress Note ---
Date of Service February 22, 2022 Anesthesia Post Procedure Vital Signs Vital Signs: Temp Pulse Pulse Resp BP BP Pulse Ox 02/22/22 12:50 98 H 12 152/82 H 96 02/22/22 12:40 99 H 12 148/76 H 95 02/22/22 12:30 36.5 C 91 H 12 130/79 98 02/22/22 12:20 91 H 16 159/82 H 98 02/22/22 11:50 85 12 160/84 H 99 02/22/22 11:40 76 16 161/82 H 99 02/22/22 12:10 91 H 12 161/81 H 99 02/22/22 12:00 90 12 162/85 H 98 02/22/22 11:30 85 16 160/84 H 99 02/22/22 11:20 36.6 C 82 14 159/81 H 99 02/22/22 05:57 36.5 C 69 20 166/69 H 99 O2 Del Method O2 Flow Rate 02/22/22 12:50 Nasal Cannula 2 02/22/22 12:40 Nasal Cannula 2 02/22/22 12:30 Nasal Cannula 2 02/22/22 12:20 Nasal Cannula 2 02/22/22 11:50 Oxymask 3 02/22/22 11:40 Oxymask 3 02/22/22 12:10 Nasal Cannula 2 02/22/22 12:00 Nasal Cannula 2 02/22/22 11:30 Oxymask 6 02/22/22 11:20 Oxymask 6 02/22/22 05:57 Room Air Pain Intensity Abdomen: Pain Intensity: 6 Transfer of Care Handoff Completed per policy Notes Mental Status: alert / awake / arousable and participated in evaluation Patient Amnestic to Procedure: Yes Nausea / Vomiting: adequately controlled Pain: adequately controlled Airway Patency, RR, SpO2: stable & adequate BP & HR: stable & adequate Hydration State: stable & adequate Anesthetic Complications: no major complications apparent
[2022-02-22] MEDS: SODIUM CHLORIDE 0.9% 1000ML 1,000 ML IV SCH (15:46)
[2022-02-22] MEDS: LACTATED RINGER'S 1,000 ML IV SCH (15:47)
[2022-02-22] MEDS: WARFARIN SOD 2.5 MG TAB PO SCH (17:30)
[2022-02-22] MEDS: HEPARIN SOD 5,000 UNIT/0.5 ML VIAL SQ SCH ×2 (17:30→23:21)
[2022-02-22] MEDS: cefOXitin 2,000 MG in DEXTROSE 5% 50 ML IV SCH ×2 (17:39→21:10)
[2022-02-22] MEDS: FAMOTIDINE 20 MG TAB PO SCH (21:00)
[2022-02-23] MEDS: ONDANSETRON INJ 2 MG/ML 2 ML VIAL IV PRN ×2 (01:34→08:46)
[2022-02-23] MEDS: LACTATED RINGER'S 1,000 ML IV SCH ×3 (01:54→21:16)
[2022-02-23] MEDS: ACETAMINOPHEN 1,000 MG/100 ML VIAL IV PRN ×3 (01:57→17:57)
[2022-02-23] MEDS: cefOXitin 2,000 MG in DEXTROSE 5% 50 ML IV SCH ×2 (02:49→08:54)
[2022-02-23] MEDS: HEPARIN SOD 5,000 UNIT/0.5 ML VIAL SQ SCH ×3 (05:29→21:18)
[2022-02-23 07:13] LABS: Basophils # (auto) 0.01 K/uL (0-0.2); Basophils % (auto) 0.1 %; Hematocrit (blood only) 38.7 % (34.1-44.9); Immature Granulocytes # (auto) 0.04 K/uL (0.00-0.02); Immature Granulocytes % (auto) 0.3 %; Lymphocytes # (auto) 0.83 K/uL (1.2-3.4); Lymphocytes % (auto) 6.8 %; Mean Corpuscular Hemoglobin 31.6 pg (25.0-34.0); Mean Corpuscular Hgb Conc 33.6 g/dL (32.0-36.0); Mean Corpuscular Volume 94.2 fL (80.0-100.0); Mean Platelet Volume 9.4 fL (9.4-12.3); Monocytes # (auto) 0.75 K/uL (0.24-0.82); Monocytes % (auto) 6.1 %; Neutrophils # (auto) 10.61 K/uL (1.4-6.5); Neutrophils % (auto) 86.7 %; Platelet Count 154 K/uL (130-400); RDW Coefficient of Variation 12.6 % (11.5-14.5); RDW Standard Deviation 43.1 fL (36.4-46.3); Red Blood Count 4.11 M/uL (3.93-5.22); White Blood Count 12.24 K/ul (4.8-10.8)
[2022-02-23 07:35] LABS: BUN Creatinine Ratio 13.3 (10-20); Bilirubin Direct 0.3 mg/dl (0-0.2); Bilirubin,Total 1.7 mg/dl (0.2-1.0); Calcium 9.4 mg/dl (8.5-10.1); Est GFR (African American) 92.9 ml/min; Est GFR (Non-African American) 80.2 ml/min; Potassium 4.2 mmol/L (3.5-5.1); Total Protein 6.4 gm/dl (6.0-8.3)
--- NOTE | 2022-02-23 07:46 | Surgery Progress Note ---
Date of Service February 23, 2022 Assessment & Plan (1) Gallstones: Plan: Operative procedure was explained to the patient again including the fact that we needed to convert to an open procedure and she suspected that this was going to happen since apparently in the past that operated on multiple times for a bowel obstruction with diffuse peritonitis spent 2 months in intensive care unit and at times they thought they were going to lose her The Ike drain that that was coming loose from the reservoir the tube was trimmed repositioned on suction drainage and appeared to be holding fine at this time We will DC the Grajeda catheter and increase activity Plan DC Grajeda catheter Increase activity Admission and Anticipated Discharge Date Admission Date: February 22, 2022 Subjective No major complaints overnight says a little bit nauseated some abdominal discomfort one of the Ike drains did not hold suction and was coming undone from the reservoir Physical Exam Physical Exam: Alert coherent resting comfortable without any major issues The sclera mildly icteric The abdomen the dressings are intact and dry one of the Ike drains disconnected from the reservoir Expected abdominal discomfort Results & Data ([facility]) Vital Signs (Past 12 Hours) Vital Signs Temp Pulse Resp BP Pulse Ox O2 Del Method 02/23/22 07:19 37.1 C 68 14 147/73 H 90 Room Air 02/23/22 02:51 36.9 C 75 16 160/88 H 95 Room Air 02/22/22 21:00 Room Air 02/22/22 22:19 36.8 C 76 16 130/76 97 Room Air Laboratory Results Noted PG Care Time/CCT Total # of Minutes Spent Total Time Spent with Patient: Total time spent is greater than 50% in coordination of care (as documented) at patient's floor/unit and/or counseling patient: Coding Level of Care Code None Diagnoses Gallstones K80.20
[2022-02-23 07:50] LABS: Prothrombin Time 10.5 Seconds (9.0-12.0)
[2022-02-23] MEDS: FAMOTIDINE 20 MG TAB PO SCH ×2 (08:46→21:18)
[2022-02-23] MEDS: DULoxetine HCL 60 MG CAP PO SCH (08:46)
[2022-02-23] MEDS: amLODIPine BESYLATE 5 MG TAB PO SCH (08:46)
[2022-02-23] MEDS: LOSARTAN POTASSIUM 50 MG TAB PO SCH (08:46)
[2022-02-23] MEDS: WARFARIN SOD 2.5 MG TAB PO SCH (15:34)
[2022-02-24] MEDS: ACETAMINOPHEN 1,000 MG/100 ML VIAL IV PRN (04:58)
[2022-02-24] MEDS: LACTATED RINGER'S 1,000 ML IV SCH ×2 (05:00→15:16)
[2022-02-24] MEDS: HEPARIN SOD 5,000 UNIT/0.5 ML VIAL SQ SCH ×3 (05:38→22:00)
[2022-02-24 06:39] LABS: Basophils # (auto) 0.01 K/uL (0-0.2); Basophils % (auto) 0.1 %; Eosinophils # (auto) 0.01 K/uL (0-0.50); Eosinophils % (auto) 0.1 %; Hematocrit (blood only) 35.4 % (34.1-44.9); Hemoglobin 11.8 g/dl (12.0-16.0); Immature Granulocytes # (auto) 0.04 K/uL (0.00-0.02); Immature Granulocytes % (auto) 0.5 %; Lymphocytes # (auto) 0.66 K/uL (1.2-3.4); Lymphocytes % (auto) 7.4 %; Mean Corpuscular Hemoglobin 31.6 pg (25.0-34.0); Mean Corpuscular Hgb Conc 33.3 g/dL (32.0-36.0); Mean Corpuscular Volume 94.9 fL (80.0-100.0); Mean Platelet Volume 9.3 fL (9.4-12.3); Monocytes # (auto) 0.62 K/uL (0.24-0.82); Neutrophils # (auto) 7.54 K/uL (1.4-6.5); Neutrophils % (auto) 84.9 %; Platelet Count 119 K/uL (130-400); RDW Coefficient of Variation 12.6 % (11.5-14.5); RDW Standard Deviation 43.8 fL (36.4-46.3); Red Blood Count 3.73 M/uL (3.93-5.22); White Blood Count 8.88 K/ul (4.8-10.8)
[2022-02-24 06:57] LABS: BUN Creatinine Ratio 12.5 (10-20); Creatinine Clr Calc Pharmacy 83.2 ml/min; Est GFR (African American) 104.1 ml/min; Est GFR (Non-African American) 89.8 ml/min; Potassium 3.7 mmol/L (3.5-5.1)
[2022-02-24 07:20] LABS: Prothrombin Time 10.8 Seconds (9.0-12.0)
[2022-02-24] MEDS: amLODIPine BESYLATE 5 MG TAB PO SCH (09:19)
[2022-02-24] MEDS: FAMOTIDINE 20 MG TAB PO SCH ×2 (09:19→20:13)
[2022-02-24] MEDS: LOSARTAN POTASSIUM 50 MG TAB PO SCH (09:20)
[2022-02-24] MEDS: DULoxetine HCL 60 MG CAP PO SCH (09:20)
[2022-02-24] MEDS ORDERED: MoRPHine SULFATE 4 MG/ML 1 ML CARP\\VIAL IV PRN (09:46)
[2022-02-24] MEDS ORDERED: MoRPHine SULFATE 2 MG/ML CARP IV PRN (09:46)
[2022-02-24] MEDS ORDERED: ACETAMINOPHEN 325 MG TAB PO PRN (09:48)
--- NOTE | 2022-02-24 09:51 | Surgery Progress Note ---
Date of Service February 24, 2022 Assessment & Plan (1) Gallstones: Plan: POD#2 open cholecystectomy WBC 8.8. 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 Encourage ongoing ambulation Pt seen/examined with Dr. Álvarez Admission and Anticipated Discharge Date Admission Date: February 22, 2022 Subjective Patient is feeling well. Pain controlled. Passing urine. No flatus/BM yet. Physical Exam Physical Exam: awake/alert, no distress Gastrointestinal (Abdomen): Inspection/Auscultation: + abdominal surgical incision (dressings c/d/i) and + abdominal surgical drain present (drain x2 serosang.); abdomen not distended Percussion/Palpation: + abdomen tender (expected eve incisional discomfort) and abdomen soft Results & Data ([facility]) Vital Signs (Past 12 Hours) Vital Signs Temp Pulse Resp BP Pulse Ox O2 Del Method 02/24/22 07:22 37.4 C 81 16 146/82 H 94 Room Air 02/23/22 23:12 37.1 C 75 20 143/78 H 96 Room Air PG Care Time/CCT Total # of Minutes Spent Total Time Spent with Patient: Total time spent is greater than 50% in coordination of care (as documented) at patient's floor/unit and/or counseling patient: Coding Level of Care Code None Diagnoses Gallstones K80.20
[2022-02-24] MEDS: SODIUM CHLORIDE 0.9% 1000ML 1,000 ML IV SCH (10:24)
[2022-02-24] MEDS: oxyCODONE HCL IR 5 MG TAB (IMMEDIATE RELEASE) PO PRN ×2 (10:45→17:15)
[2022-02-24] MEDS ORDERED: WARFARIN SOD 5 MG TAB PO SCH (16:00)
[2022-02-24] MEDS: cefOXitin 2,000 MG in DEXTROSE 5% 50 ML IV SCH ×2 (17:15→22:00)
[2022-02-25] MEDS: LACTATED RINGER'S 1,000 ML IV SCH (02:29)
[2022-02-25] MEDS: cefOXitin 2,000 MG in DEXTROSE 5% 50 ML IV SCH ×4 (05:23→22:06)
[2022-02-25] MEDS: HEPARIN SOD 5,000 UNIT/0.5 ML VIAL SQ SCH ×3 (05:25→22:02)
[2022-02-25 06:38] LABS: Basophils # (auto) 0.01 K/uL (0-0.2); Basophils % (auto) 0.2 %; Eosinophils # (auto) 0.07 K/uL (0-0.50); Eosinophils % (auto) 1.3 %; Hematocrit (blood only) 32.8 % (34.1-44.9); Hemoglobin 10.9 g/dl (12.0-16.0); Immature Granulocytes # (auto) 0.01 K/uL (0.00-0.02); Immature Granulocytes % (auto) 0.2 %; Lymphocytes % (auto) 16.6 %; Mean Corpuscular Hemoglobin 31.4 pg (25.0-34.0); Mean Corpuscular Hgb Conc 33.2 g/dL (32.0-36.0); Mean Corpuscular Volume 94.5 fL (80.0-100.0); Mean Platelet Volume 9.3 fL (9.4-12.3); Monocytes # (auto) 0.37 K/uL (0.24-0.82); Monocytes % (auto) 6.8 %; Neutrophils # (auto) 4.06 K/uL (1.4-6.5); Neutrophils % (auto) 74.9 %; Platelet Count 108 K/uL (130-400); RDW Coefficient of Variation 12.5 % (11.5-14.5); RDW Standard Deviation 43.4 fL (36.4-46.3); Red Blood Count 3.47 M/uL (3.93-5.22); White Blood Count 5.42 K/ul (4.8-10.8)
[2022-02-25 06:47] LABS: Prothrombin Time 11.1 Seconds (9.0-12.0)
[2022-02-25 07:15] LABS: Calcium 8.6 mg/dl (8.5-10.1); Est GFR (African American) 92.9 ml/min; Est GFR (Non-African American) 80.2 ml/min; Potassium 3.5 mmol/L (3.5-5.1)
[2022-02-25] MEDS: oxyCODONE HCL IR 5 MG TAB (IMMEDIATE RELEASE) PO PRN ×3 (08:26→20:41)
--- NOTE | 2022-02-25 08:44 | Surgery Progress Note ---
Date of Service February 25, 2022 Assessment & Plan (1) Gallstones: Plan: POD 3 open jerry seen with Dr. Álvarez labs stable cont mefoxin cont both GINA drains Admission and Anticipated Discharge Date Admission Date: February 22, 2022 Subjective tolerating regular diet Physical Exam Constitutional: WD/WN, vitals as above Gastrointestinal (Abdomen): Inspection/Auscultation: + abdominal surgical drain present (nonbilious); abdomen not distended Percussion/Palpation: abdomen soft Results & Data ([facility]) Vital Signs (Past 12 Hours) Vital Signs Temp Pulse Resp BP Pulse Ox O2 Del Method 02/25/22 08:09 36.8 C 67 16 151/75 H 96 Room Air 02/24/22 21:48 37.1 C 87 16 136/77 95 Room Air PG Care Time/CCT Total # of Minutes Spent Total Time Spent with Patient: Total time spent is greater than 50% in coordination of care (as documented) at patient's floor/unit and/or counseling patient: Coding Level of Care Code None Diagnoses Gallstones K80.20
[2022-02-25] MEDS: DULoxetine HCL 60 MG CAP PO SCH (09:01)
[2022-02-25] MEDS: FAMOTIDINE 20 MG TAB PO SCH ×2 (09:01→20:41)
[2022-02-25] MEDS: LOSARTAN POTASSIUM 50 MG TAB PO SCH (09:01)
[2022-02-25] MEDS: amLODIPine BESYLATE 5 MG TAB PO SCH (09:01)
[2022-02-25] MEDS: WARFARIN SOD 2.5 MG TAB PO SCH (15:48)
[2022-02-26] MEDS: HEPARIN SOD 5,000 UNIT/0.5 ML VIAL SQ SCH (05:09)
[2022-02-26] MEDS: cefOXitin 2,000 MG in DEXTROSE 5% 50 ML IV SCH (05:09)
--- NOTE | 2022-02-26 06:52 | Surgery Progress Note ---
Date of Service February 26, 2022 Assessment & Plan (1) Gallstones: Plan: 02/26/22 #4POD Newell for subcutaneous tissue in both incision was removed dressing applied We will leave the Ike drain incisions at this time Some ecchymosis on the incision and the drain sites related to the anticoagulation Anticipate the patient will be here at least until tomorrow making sure that her bowel function is intact before discharge POD 3 open jerry seen with Dr. Álvarez labs stable cont mefoxin cont both GINA drains Admission and Anticipated Discharge Date Admission Date: February 22, 2022 Subjective No major complaints ate a regular diet yesterday minimal discomfort positive flatus but no bowel movement yet Physical Exam Physical Exam: Alert coherent resting comfortably Supine position the abdomen examined the incisions some ecchymosis noted on subcostal incision sheyla intact drainage at the Newell subcutaneous site Ike drains serosanguineous the supraumbilical incision similarly minimal ecchymosis drainage from the Michelle site rest of the abdomen is negative Results & Data ([facility]) Vital Signs (Past 12 Hours) Vital Signs Temp Resp BP Pulse Ox O2 Del Method 02/25/22 22:01 37.0 C 16 126/74 96 Room Air PG Care Time/CCT Total # of Minutes Spent Total Time Spent with Patient: Total time spent is greater than 50% in coordination of care (as documented) at patient's floor/unit and/or counseling patient: Coding Level of Care Code None Diagnoses Gallstones K80.20
[2022-02-26 07:05] LABS: INR 1.3 (0.9-1.1); Prothrombin Time 13.7 Seconds (9.0-12.0)
[2022-02-26] MEDS: FAMOTIDINE 20 MG TAB PO SCH ×2 (08:22→20:01)
[2022-02-26] MEDS: DULoxetine HCL 60 MG CAP PO SCH (08:22)
[2022-02-26] MEDS: LOSARTAN POTASSIUM 50 MG TAB PO SCH (08:22)
[2022-02-26] MEDS: amLODIPine BESYLATE 5 MG TAB PO SCH (08:22)
[2022-02-26] MEDS: oxyCODONE HCL IR 5 MG TAB (IMMEDIATE RELEASE) PO PRN ×2 (09:07→20:04)
[2022-02-26] MEDS: WARFARIN SOD 2.5 MG TAB PO SCH (16:08)
[2022-02-27] MEDS: oxyCODONE HCL IR 5 MG TAB (IMMEDIATE RELEASE) PO PRN (06:08)
[2022-02-27] MEDS: LOSARTAN POTASSIUM 50 MG TAB PO SCH (08:08)
[2022-02-27] MEDS: amLODIPine BESYLATE 5 MG TAB PO SCH (08:08)
[2022-02-27] MEDS: DULoxetine HCL 60 MG CAP PO SCH (08:08)
[2022-02-27] MEDS: FAMOTIDINE 20 MG TAB PO SCH (08:12)
[2022-02-27 08:13] LABS: INR 1.7 (0.9-1.1); Prothrombin Time 17.2 Seconds (9.0-12.0)
--- NOTE | 2022-02-27 08:21 | Surgery Progress Note ---
Date of Service February 27, 2022 Assessment & Plan (1) Gallstones: Plan: POD 5 open jerry INR 1.7 doing well, likely d/c later today, remove at least one drain Admission and Anticipated Discharge Date Admission Date: February 22, 2022 Supervising Physician Co-Signing Physician Notes Patient feels fine he is eating well her bowels removed virtually having no discomfort At this point both drains were removed just serous slightly sanguinous dressing was applied Patient can be discharged today virtually second nothing for pain Instructed the patient to return to our office [address] no lifting anything heavier than 10 pounds for 1 week All question answered Subjective tolerating diet and po analgesics, bowels moving Physical Exam Gastrointestinal (Abdomen): Inspection/Auscultation: + abdominal surgical drain present (10 cc each); abdomen not distended Percussion/Palpation: abdomen soft Results & Data ([facility]) Vital Signs (Past 12 Hours) Vital Signs Temp Pulse Resp BP BP Pulse Ox O2 Del Method 02/27/22 07:24 36.8 C 75 18 132/81 96 02/26/22 22:23 36.9 C 75 18 118/74 97 Room Air PG Care Time/CCT Total # of Minutes Spent Total Time Spent with Patient: Total time spent is greater than 50% in coordination of care (as documented) at patient's floor/unit and/or counseling patient: Coding Level of Care Code None Diagnoses Gallstones K80.20
--- NOTE | 2022-03-05 08:13 | Coding Query ---
CODING QUERY To promote full compliance with coding requirements relating to patient care, provider participation is requested in all cases of sign fabricator uncertainty. Please assist us with the question(s) below: Coding Question(s): Patient admitted with cholelithiasis. Lap converted to open cholecystectomy. Many adhesions encountered. The OP report mentioned enterotomies of large and small intestine. Please check below the phrase that describes the enterotomies. Thanks for your help! CONRADO Guan [facility] Physician's Response(s): The enterotomies were incidental to the procedure x The enterotomies were a complication of the procedure Cannot clinically correlate if the enterotomies were a complication or incidental to the procedure Other: Please document: Principal Diagnosis: "that condition established after study, to be chiefly responsible for occasioning the admission of the patient to the hospital for care." Co-Existing Principal Diagnosis: "when two or more diagnoses equally meet the criteria for principal diagnosis as determined by the circumstances of admission, diagnostic work up, and/or therapy provided, and the Alphabetic Index, Tabular List, or another coding guideline does not provide sequencing direction, any one of the diagnoses may be sequenced first." "When the physician has documented what appears to be a current diagnosis in the body of the record, but has not included the diagnosis in the final diagnostic statement, the physician should be asked whether the diagnosis should be added." (Source Coding Clinic 2 QTR90. p3-4) RITCHIE
== END 2022-02-27 15:13 | disposition home or self-care (01) | DRG 415 ==
LOC: ASU 05:34 → 3N 10:49
PROC: M.CHOLE (2022-02-22 07:00)

== ENCOUNTER 2022-03-24 12:59 | Observation (INO) ==
--- NOTE | 2022-03-24 13:33 | Emergency Department Note ---
Impression & Plan SOB (shortness of breath), DARNELL (dyspnea on exertion), Left arm pain, Palpitations ED Provider Note NAME: HEMAL KUMARI AGE: 71 SEX: F : 1950 ARRIVES VIA: Walk-In INFORMANT: [Patient] ED PROVIDER(S): [Tyson Alcantar MD] CHIEF COMPLAINT: Shortness of breath HISTORY OF PRESENT ILLNESS: The patient is a 71-year-old female who states that for a week, she has noticed shortness of breath with exertion such as walking or doing the steps. She feels her heart race. There has been no chest pain but she has felt some pain in the left bicep at times, the bicep pain comes and goes randomly and is not associated with her dyspnea and palpitations. She has noticed some pain behind the right shoulder blade at times as well. There has been no fever, no cough or sore throat or nasal congestion. No respiratory complaints. The patient did have open gallbladder surgery a month ago. She is healing well from this surgery. She has lost 8 pounds since surgery. REVIEW OF SYSTEMS: See HPI for pertinent positives and negatives. A total of ten systems were reviewed and were otherwise negative. PMHx/PSHx: See Below SOCIAL HISTORY: See Below. PHYSICAL EXAM: GENERAL: Patient is in no acute distress. HEENT: No acute trauma, normocephalic atraumatic, mucous membranes moist, no nasal congestion, no scleral icterus. NECK: No stridor, no adenopathy, no meningismus, trachea is midline. LUNGS: Clear to auscultation bilaterally, no wheeze, no rhonchi, breath sounds equal. HEART: Without murmurs gallops or rubs, regular rate and rhythm. ABDOMEN: Soft, nontender, bowel sounds positive, no peritonitis. Surgical incisions healing well without erythema or signs of infection. EXTREMITIES: No cyanosis or edema, full range of motion of all the joints without pain or difficulty, no signs for acute trauma. Strong distal left radial pulse. NEUROLOGIC: Oriented x 3, no acute motor or sensory deficits, no focal weakness. SKIN: No rash, no jaundice, no diaphoresis. Pale. DIFFERENTIAL DIAGNOSIS: Reactive airway disease, pneumonia, pneumothorax, COPD, CHF, infection, cardiac ischemia, pulmonary embolism, bronchitis, anemia, as well as other pathologies. EMERGENCY DEPARTMENT COURSE/PROCEDURES: ECG: Indication was shortness of breath. The ECG shows a normal sinus rhythm with a rate of 81. There is no ST elevation, no PVCs. There is some poor R wave progression. The QTc is 434. Continuous Cardiac Monitoring: An order was placed for continuous cardiac monitoring. The monitor shows a rate of 87 with normal sinus rhythm. MEDICAL DECISION MAKING: There is no leukocytosis or worrisome anemia. There is a normal platelet count. INR is therapeutic for someone using Coumadin. No renal failure. Magnesium was slightly low at 1.6. No concerning liver enzyme elevation. ECG showed a normal sinus rhythm, no ST elevation. Cardiac enzyme testing x1 was not consistent with acute cardiac injury. COVID test returned negative. Chest film did not show pneumonia or CHF. Chest CT did not show evidence for PE, no pneumonia. On exam, the patient's lungs were clear. No cardiac murmurs. Patient was given a dose of oral magnesium, she has been resting comfortably. I discussed the case with Dr. Gaxiola of cardiology. Given the exertional dyspnea, given the left arm pain, given the lack of findings here to explain the dyspnea and symptoms, hospitalization was felt warranted. The patient can undergo further cardiac testing while in the hospital, a stress test can hopefully be performed tomorrow. I talked to the patient, she was comfortable with staying in the hospital. I spoke with case management, the on-call hospitalist was consulted. Past Med/Surg History Medical History Anemia Anxiety Depression Encounter for pre-operative examination Gallstones History of GI bleed secondary to hemorrhoids (2019) Hx of deep venous thrombosis Right calf (2008), on warfarin daily Hx pulmonary embolism 2002 Hypertension Surgical History (Updated 02/22/22 @ 12:22 by Marsha Moser RN) H/O section H/O colonoscopy (2019) History of small bowel obstruction (2008) Hx laparoscopic cholecystectomy (02/22/22) Attempted Laparoscopic Cholecystectomy Converted to Open Cholecystectomy with Cholangiogram, Repair Small Bowel and Colonic Enterotomy, Lysis of Dense Abdominal Adhesions Dr. Álvarez Hx of breast reduction, elective (2011) Hx of hysterectomy (1991) S/P cataract extraction (12/2019) b/l eyes S/P IVC filter 2002 Family History Mother Cardiac disorder Hypertension Myocardial infarction Heart disease Grandmother Breast cancer Cancer Father Myocardial infarction Hypertension Heart disease Denies family history of Ovarian cancer Prostate cancer Colorectal cancer Social History Smoking Status: Never smoker Second Hand Exposure: No; Hx Alcohol Use: No Hx Substance Use: No Preferred Language: Kittitian Communication Ability: Effective Visual Impairment: No Limitations Hearing Ability: Normal Officer Lieutenant Required: No Beliefs That Will Affect Care: None marital status: / Current Living Situation: Alone current occupational status: retired Feels Safe at Home: Yes Childhood Exposure to Second-Hand Smoke: Yes (father) Diet Comment: regular caffeine: Yes (occasional diet pepsi ) during the past year weight has: remained stable Dental Care, Regularly: Yes Physical Activity Frequency: 1-2 Times per Week Physical Activity Frequency Comment: taking care of mother, house cleaning Seatbelt Use: always Sunscreen Use: Yes Assistive Devices: None Allergies Allergies Allergy/AdvReac Type Severity Reaction Status Date / Time No Known Allergies Allergy Verified 03/24/22 15:54 Home Meds Home Medications Medication Instructions Recorded Confirmed duloxetine 60 mg capsule,delayed 60 mg PO QAM 03/06/19 03/24/22 release famotidine 20 mg tablet 20 mg PO HS 03/06/19 03/24/22 calcium carbonate 600 mg-vitamin 1 cap PO BID 06/22/19 03/24/22 D3 5 mcg (200 unit) capsule (Calcium 600 + D(3)) warfarin 5 mg tablet 2.5 mg PO QPM 02/14/20 03/24/22 biotin 1 mg tablet 1 mg PO QAM 02/16/22 03/24/22 amlodipine 5 mg tablet 5 mg PO QAM 03/24/22 03/24/22 ascorbic acid (vitamin C) 250 mg 250 mg PO QAM 03/24/22 03/24/22 tablet (Vitamin C) cholecalciferol (vitamin D3) 50 50 mcg PO QAM 03/24/22 03/24/22 mcg (2,000 unit) capsule ferrous sulfate 325 mg (65 mg 325 mg PO QAM 03/24/22 03/24/22 iron) tablet (iron) hydrochlorothiazide 12.5 mg tablet 12.5 mg PO QAM 03/24/22 03/24/22 losartan 100 mg tablet 100 mg PO QAM 03/24/22 03/24/22 omega-3 fatty acids 1,000 mg 1,000 mg PO QAM 03/24/22 03/24/22 capsule potassium gluconate 595 mg (99 mg) 595 mg PO QAM 03/24/22 03/24/22 tablet Previous Rx's Medication Instructions Recorded lorazepam 0.5 mg tablet (Ativan) 0.5 mg PO DAILY PRN anxiety #30 05/28/19 tabs Results & Data (ED) Vital Signs Vital Signs - 24 hr 03/24/22 13:14 03/24/22 13:24 03/24/22 13:35 Temperature 36.8 C Temperature Source Temporal Artery Scan Pulse Rate 87 87 Pulse Rate [Right Finger] Pulse Rhythm Regular Pulse Rhythm [Right Finger] Respiratory Rate 18 18 Blood Pressure 106/70 Blood Pressure Mean 82 Pulse Oximetry 98 98 Oxygen Delivery Method Room Air Room Air Room Air Sepsis Recent Fever Within 48 Hours No Sepsis New/Unexplained Change in Mental Status No Sepsis Action Taken by Nursing No Action Required 03/24/22 13:35 03/24/22 15:16 Temperature Temperature Source Pulse Rate Pulse Rate [Right Finger] 66 Pulse Rhythm Pulse Rhythm [Right Finger] Regular Respiratory Rate Blood Pressure Blood Pressure Mean Pulse Oximetry 98 98 Oxygen Delivery Method Room Air Room Air Sepsis Recent Fever Within 48 Hours Sepsis New/Unexplained Change in Mental Status Sepsis Action Taken by [facility] Medications Current Medication List: was personally reviewed by me Laboratory Data Attestation: I reviewed the patient's lab results. Result diagrams: 03/24/22 13:35 03/24/22 13:35 Lab Results 03/24/22 03/24/22 03/24/22 Range/Units 13:35 13:35 13:35 WBC 5.60 (4.8-10.8) K/ul RBC 3.77 L (3.93-5.22) M/uL Hgb 11.6 L (12.0-16.0) g/dl Hct 34.8 (34.1-44.9) % MCV 92.3 (80.0-100.0) fL MCH 30.8 (25.0-34.0) pg MCHC 33.3 (32.0-36.0) g/dL RDW Std Deviation 43.9 (36.4-46.3) fL RDW Coeff of Lashawn 13.4 (11.5-14.5) % Plt Count 173 (130-400) K/uL MPV 9.5 (9.4-12.3) fL Immature Gran % (Auto) 0.2 % Neut % (Auto) 70.8 % Lymph % (Auto) 20.7 % Wells % (Auto) 5.2 % Eos % (Auto) 2.9 % Baso % (Auto) 0.2 % Neut # (Auto) 3.97 (1.4-6.5) K/uL Lymph # (Auto) 1.16 L (1.2-3.4) K/uL Wells # (Auto) 0.29 (0.24-0.82) K/uL Eos # (Auto) 0.16 (0-0.50) K/uL Baso # (Auto) 0.01 (0-0.2) K/uL Immature Gran # (Auto) 0.01 (0.00-0.02) K/uL PT 25.2 H (9.0-12.0) Seconds INR 2.5 H (0.9-1.1) APTT 35.0 H (21.0-31.0) Seconds PTT Ratio 1.3 Sodium 142 (136-145) mmol/L Potassium 3.6 (3.5-5.1) mmol/L Chloride 106 (98-107) mmol/L Carbon Dioxide 27 (21-32) mmol/L Anion Gap 9 (3-11) BUN 11 (6-23) mg/dl Creatinine 0.77 (0.6-1.2) mg/dl Est Cr Clr Drug Dosing 67.6 ml/min Est GFR ( Amer) 90.0 ml/min Est GFR (Non-Af Amer) 77.7 ml/min BUN/Creatinine Ratio 14.3 (10-20) Glucose 98 (70-99(Fasting)) mg/dl Calcium 9.3 (8.5-10.1) mg/dl Magnesium 1.6 L (1.7-2.4) mg/dl Total Bilirubin 0.8 (0.2-1.0) mg/dl AST 21 (13-39) U/L ALT 13 (7-52) U/L Alkaline Phosphatase 64 (34-104) U/L Troponin I High Sens 11.7 (0-14) pg/ml Total Protein 6.8 (6.0-8.3) gm/dl Albumin 4.3 (3.4-5.0) gm/dl Globulin 2.5 (2.5-4.0) gm/dl Albumin/Globulin Ratio 1.7 (0.9-2) SARS-CoV-2, RNA, NAAT (NEGATIVE) 03/24/22 Range/Units 13:51 WBC (4.8-10.8) K/ul RBC (3.93-5.22) M/uL Hgb (12.0-16.0) g/dl Hct (34.1-44.9) % MCV (80.0-100.0) fL MCH (25.0-34.0) pg MCHC (32.0-36.0) g/dL RDW Std Deviation (36.4-46.3) fL RDW Coeff of Lashawn (11.5-14.5) % Plt Count (130-400) K/uL MPV (9.4-12.3) fL Immature Gran % (Auto) % Neut % (Auto) % Lymph % (Auto) % Wells % (Auto) % Eos % (Auto) % Baso % (Auto) % Neut # (Auto) (1.4-6.5) K/uL Lymph # (Auto) (1.2-3.4) K/uL Wells # (Auto) (0.24-0.82) K/uL Eos # (Auto) (0-0.50) K/uL Baso # (Auto) (0-0.2) K/uL Immature Gran # (Auto) (0.00-0.02) K/uL PT (9.0-12.0) Seconds INR (0.9-1.1) APTT (21.0-31.0) Seconds PTT Ratio Sodium (136-145) mmol/L Potassium (3.5-5.1) mmol/L Chloride (98-107) mmol/L Carbon Dioxide (21-32) mmol/L Anion Gap (3-11) BUN (6-23) mg/dl Creatinine (0.6-1.2) mg/dl Est Cr Clr Drug Dosing ml/min Est GFR ( Amer) ml/min Est GFR (Non-Af Amer) ml/min BUN/Creatinine Ratio (10-20) Glucose (70-99(Fasting)) mg/dl Calcium (8.5-10.1) mg/dl Magnesium (1.7-2.4) mg/dl Total Bilirubin (0.2-1.0) mg/dl AST (13-39) U/L ALT (7-52) U/L Alkaline Phosphatase (34-104) U/L Troponin I High Sens (0-14) pg/ml Total Protein (6.0-8.3) gm/dl Albumin (3.4-5.0) gm/dl Globulin (2.5-4.0) gm/dl Albumin/Globulin Ratio (0.9-2) SARS-CoV-2, RNA, NAAT NEGATIVE (NEGATIVE) Administered Medications Discontinued Medications Ioversol (Optiray 320 500ml) 93 ml IV ONCE ONE Stop: 03/24/22 14:36 Last Admin: 03/24/22 14:36 Dose: 93 ml Documented By: JUAN JOSE Magnesium Oxide (Magnesium Oxide 400 Mg Tab) 400 mg PO NOW STA Stop: 03/24/22 14:32 Last Admin: 03/24/22 14:55 Dose: 400 mg Documented By: [facility] Imaging Data Radiologist's Impression: Chest X-Ray 03/24/22 13:30 XR chest 1V portable CLINICAL HISTORY: Dyspnea COMPARISON STUDY: Chest radiograph February 14, 2020. FINDINGS: Lung volumes are normal. No consolidation. Linear left basilar opacities are unchanged and represent atelectasis or scarring. There is no pneumothorax or pleural effusion. Cardiac size is normal. Mediastinal contours are normal. There is no evidence for pulmonary edema. IMPRESSION: No acute cardiopulmonary findings. ACT 112: Negative or not required by law. Electronically signed by: Javier Austin M.D. 03/24/2022 2:01 PM Chest CTA 03/24/22 14:18 CT ANGIOGRAPHY OF THE CHEST, PULMONARY EMBOLUS PROTOCOL CLINICAL HISTORY: Shortness of breath. Evaluate for pulmonary embolus. COMPARISON STUDY: Chest CT February 24, 2007 and chest radiograph performed earlier today. TECHNIQUE: Following IV administration of 93 mL of Optiray, helical axial images of the chest were obtained utilizing the pulmonary embolus protocol. Maximal intensity projections and sagittal and coronal reformats were viewed on an independent 3D workstation. IV contrast was administered without complication. Automated exposure control was utilized for the study. A dose lowering technique was utilized adhering to the principles of ALARA. CT DOSE: 382.70 mGy.cm FINDINGS: No pulmonary emboli are identified. Cardiac size is at upper limits of normal. There is no pericardial effusion. No enlarged thoracic lymph nodes. The central airways are patent. A subpleural right lower lobe opacity on axial image 64 of [address] of February 24, 2007. This represents scarring. Mild ground glass opacities with mosaic attenuation and possible interlobular septal thickening are present. No confluent consolidation is present. Bony thorax is unremarkable. Visualized portions of the upper abdomen are unremarkable as well. IMPRESSION: 1. No pulmonary emboli. 2. No consolidation. 3. Mild groundglass opacities with mosaic attenuation and interlobular septal thickening. This favors atelectasis however air trapping or mild pulmonary edema could appear similar.. ACT 112: Negative or not required by law. Electronically signed by: Javier Austin M.D. 03/24/2022 3:01 PM Discharge Plan Visit Data Chief Complaint: Shortness of Breath/Dyspnea Stated Complaint: SHORTNESS OF BREATH, LEFT ARM PAIN ED Provider: Tyson Alcantar Discharge Problem: SOB (shortness of breath), DARNELL (dyspnea on exertion), Left arm pain, Palpitations Patient Disposition: Admitted As Inpatient Condition: Good Forms Stand Alone Forms: [facility] Prescriptions Prescriptions: No Action lorazepam [Ativan] 0.5 mg tablet 0.5 mg PO DAILY PRN (Reason: anxiety) Qty: 30 0RF duloxetine 60 mg capsule,delayed release(DR/EC) 60 mg PO QAM famotidine 20 mg tablet 20 mg PO HS Calcium 600 + D(3) 600 mg calcium- 200 unit Capsule 1 cap PO BID warfarin 5 mg tablet 2.5 mg PO QPM Protocol: Dose Management Condition: Saturday Dose/Route: 2.5 mg Instruction: 0.5 x 5 mg tablets Condition: Saturday Dose/Route: 2.5 mg Instruction: 0.5 x 5 mg tablets Condition: Saturday Dose/Route: 2.5 mg Instruction: 0.5 x 5 mg tablets Condition: Saturday Dose/Route: 2.5 mg Instruction: 0.5 x 5 mg tablets Condition: Dose/Route: 2.5 mg Instruction: 0.5 x 5 mg tablets Condition: Saturday Dose/Route: 2.5 mg Instruction: 0.5 x 5 mg tablets Condition: Saturday Dose/Route: 2.5 mg Instruction: 0.5 x 5 mg tablets Protocol Text: Adjustment Start Date: Saturday02/02/22 INR Value: 2.3 INR Date: 02/02/22 Recheck Date: 03/02/22 Rx Instructions: NOW TAKES DAILY @ 1700 biotin 1 mg Tablet 1 mg PO QAM omega-3 fatty acids 1,000 mg Capsule 1,000 mg PO QAM ascorbic acid (vitamin C) [Vitamin C] 250 mg Tablet 250 mg PO QAM ferrous sulfate [iron] 325 mg (65 mg iron) Tablet 325 mg PO QAM potassium gluconate 595 mg (99 mg) Tablet 595 mg PO QAM amlodipine 5 mg tablet 5 mg PO QAM losartan 100 mg tablet 100 mg PO QAM hydrochlorothiazide 12.5 mg tablet 12.5 mg PO QAM cholecalciferol (vitamin D3) 50 mcg (2,000 unit) capsule 50 mcg PO QAM Referrals Referrals: Cecelia Paulson DO [Primary Care Provider] -
[2022-03-24 13:51] LABS: Basophils # (auto) 0.01 K/uL (0-0.2); Basophils % (auto) 0.2 %; Eosinophils # (auto) 0.16 K/uL (0-0.50); Eosinophils % (auto) 2.9 %; Hematocrit (blood only) 34.8 % (34.1-44.9); Hemoglobin 11.6 g/dl (12.0-16.0); Immature Granulocytes # (auto) 0.01 K/uL (0.00-0.02); Immature Granulocytes % (auto) 0.2 %; Lymphocytes # (auto) 1.16 K/uL (1.2-3.4); Lymphocytes % (auto) 20.7 %; Mean Corpuscular Hemoglobin 30.8 pg (25.0-34.0); Mean Corpuscular Hgb Conc 33.3 g/dL (32.0-36.0); Mean Corpuscular Volume 92.3 fL (80.0-100.0); Mean Platelet Volume 9.5 fL (9.4-12.3); Monocytes # (auto) 0.29 K/uL (0.24-0.82); Monocytes % (auto) 5.2 %; Neutrophils # (auto) 3.97 K/uL (1.4-6.5); Neutrophils % (auto) 70.8 %; Platelet Count 173 K/uL (130-400); RDW Coefficient of Variation 13.4 % (11.5-14.5); RDW Standard Deviation 43.9 fL (36.4-46.3); Red Blood Count 3.77 M/uL (3.93-5.22)
[2022-03-24 14:02] LABS: INR 2.5 (0.9-1.1); Partial Thromboplastin Ratio 1.3; Prothrombin Time 25.2 Seconds (9.0-12.0)
--- NOTE | 2022-03-24 14:02 | XRay Report ---
XR chest 1V portable CLINICAL HISTORY: Dyspnea COMPARISON STUDY: Chest radiograph February 14, 2020. FINDINGS: Lung volumes are normal. No consolidation. Linear left basilar opacities are unchanged and represent atelectasis or scarring. There is no pneumothorax or pleural effusion. Cardiac size is norm al. Mediastinal contours are normal. There is no evidence for pulmonary edema. IMPRESSION: No acute cardiopulmonary findings. ACT 112: Negative or not required by law. Electronically signed by: Javier Austin M.D. 03/24/2022 2:01 PM
[2022-03-24 14:10] LABS: Albumin Globulin Ratio 1.7 (0.9-2); Albumin Level 4.3 gm/dl (3.4-5.0); BUN Creatinine Ratio 14.3 (10-20); Bilirubin,Total 0.8 mg/dl (0.2-1.0); Calcium 9.3 mg/dl (8.5-10.1); Creatinine Clr Calc Pharmacy 67.6 ml/min; Est GFR (Non-African American) 77.7 ml/min; Globulin 2.5 gm/dl (2.5-4.0); Magnesium 1.6 mg/dl (1.7-2.4); Potassium 3.6 mmol/L (3.5-5.1); Total Protein 6.8 gm/dl (6.0-8.3)
[2022-03-24 14:16] LABS: Troponin I High Sensitivity 11.7 pg/ml (0-14)
[2022-03-24] MEDS ORDERED: MAGNESIUM OXIDE 400 MG TAB PO STA (14:31)
[2022-03-24] MEDS ORDERED: OPTIRAY 320 500ml IV ONE (14:35)
--- NOTE | 2022-03-24 15:03 | CT Scan Report ---
CT ANGIOGRAPHY OF THE CHEST, PULMONARY EMBOLUS PROTOCOL CLINICAL HISTORY: Shortness of breath. Evaluate for pulmonary embolus. COMPARISON STUDY: Chest CT February 24, 2007 and chest radiograph performed earlier today. TECHNIQUE: Following IV administration of 93 mL of Optiray, helical axial images of the chest were ob tained utilizing the pulmonary embolus protocol. Maximal intensity projections and sagittal and maira nal reformats were viewed on an independent 3D workstation. IV contrast was administered without com plication. Automated exposure control was utilized for the study. A dose lowering technique was uti lized adhering to the principles of ALARA. CT DOSE: 382.70 mGy.cm FINDINGS: No pulmonary emboli are identified. Cardiac size is at upper limits of normal. There is no pericardial effusion. No enlarged thoracic lymph nodes. The central airways are patent. A subpleural right lower lobe opacity on axial image 64 of [address] of February 24, 2007. This r epresents scarring. Mild ground glass opacities with mosaic attenuation and possible interlobular sep raudel thickening are present. No confluent consolidation is present. Bony thorax is unremarkable. Visua lized portions of the upper abdomen are unremarkable as well. IMPRESSION: 1. No pulmonary emboli. 2. No consolidation. 3. Mild groundglass opacities with mosaic attenuation and interlobular septal thickening. This favors atelectasis however air trapping or mild pulmonary edema could appear similar.. ACT 112: Negative or not required by law. Electronically signed by: Javier Austin M.D. 03/24/2022 3:01 PM
--- NOTE | 2022-03-24 15:52 | History & Physical Report ---
Date of Service March 24, 2022 Assessment & Plan (1) Left arm pain: Plan: Unable to reproduce left arm pain with Spurling manoeuvre and not typical of radiculopathy Possibly concerning for cardiac source although not exertional. Trend troponins overnight but no need for heparin IV drip if not raised given atypical nature Stress echo if troponins negative as ER provider discussed with cardiology NPO after midnight for this (2) Dyspnea on exertion: Plan: No significant pathology on CT angiogram No wheezing on exam or history of reactive airway disease Workup for cardiac cause as above (3) Hypertension: Plan: Continue amlodipine, hydrochlorothiazide and losartan at home dosing (4) History of blood clots: Plan: Place warfarin on hold tomorrow in case of need of cardiac cath Plan VTE Prophylaxis - INR therapeutic, warfarin placed on hold tomorrow in case she requires cardiac catheterization following stress echo Diet - heart healthy, NPO at midnight Disposition - observation status on med/tele Admission and Anticipated Discharge Date Admission Date: March 24, 2022 History of Present Illness Chief Complaint: Left arm pain, shortness of breath on exertion Primary Care Provider: DO Christianne Pinto Deangelo is a 71 year old female who presents to the ER with shortness of breath on exertion and left arm pain for the last week. Symptoms appear to be seperate. Shortness of breath on exertion mainly on walking up steps. Associated palpitations. No prior smoking, asthma or COPD history. No leg swelling, orthopnea or PND. Left arm pain intermittent. Much worse today and lasted for 15 minutes (started around 10:30am) which prompted this ER visit. No associated chest pain. No worse on movement, position, exertion or food. ER provider discussed with cardiology and recommended admission for stress testing tomorrow. Allergies Allergy/AdvReac Type Severity Reaction Status Date / Time No Known Allergies Allergy Verified 03/24/22 15:54 Home Medications Medication Instructions Recorded Confirmed Type duloxetine 60 mg capsule,delayed 60 mg PO QAM 03/06/19 03/24/22 History release famotidine 20 mg tablet 20 mg PO HS 03/06/19 03/24/22 History lorazepam 0.5 mg tablet (Ativan) 0.5 mg PO DAILY PRN anxiety #30 05/28/19 03/24/22 Rx tabs calcium carbonate 600 mg-vitamin 1 cap PO BID 06/22/19 03/24/22 History D3 5 mcg (200 unit) capsule (Calcium 600 + D(3)) warfarin 5 mg tablet 2.5 mg PO QPM 02/14/20 03/24/22 History biotin 1 mg tablet 1 mg PO QAM 02/16/22 03/24/22 History amlodipine 5 mg tablet 5 mg PO QAM 03/24/22 03/24/22 History ascorbic acid (vitamin C) 250 mg 250 mg PO QAM 03/24/22 03/24/22 History tablet (Vitamin C) cholecalciferol (vitamin D3) 50 50 mcg PO QAM 03/24/22 03/24/22 History mcg (2,000 unit) capsule ferrous sulfate 325 mg (65 mg 325 mg PO QAM 03/24/22 03/24/22 History iron) tablet (iron) hydrochlorothiazide 12.5 mg tablet 12.5 mg PO QAM 03/24/22 03/24/22 History losartan 100 mg tablet 100 mg PO QAM 03/24/22 03/24/22 History omega-3 fatty acids 1,000 mg 1,000 mg PO QAM 03/24/22 03/24/22 History capsule potassium gluconate 595 mg (99 mg) 595 mg PO QAM 03/24/22 03/24/22 History tablet Past Med/Surg History Medical History Anemia Anxiety Depression Encounter for pre-operative examination Gallstones History of GI bleed secondary to hemorrhoids (2019) Hx of deep venous thrombosis Right calf (2008), on warfarin daily Hx pulmonary embolism 2002 Hypertension Surgical History (Updated 02/22/22 @ 12:22 by Marsha Moser RN) H/O section H/O colonoscopy (2019) History of small bowel obstruction (2008) Hx laparoscopic cholecystectomy (02/22/22) Attempted Laparoscopic Cholecystectomy Converted to Open Cholecystectomy with Cholangiogram, Repair Small Bowel and Colonic Enterotomy, Lysis of Dense Abdominal Adhesions Dr. Álvarez Hx of breast reduction, elective (2011) Hx of hysterectomy (1991) S/P cataract extraction (12/2019) b/l eyes S/P IVC filter 2002 Family History Mother Cardiac disorder Hypertension Myocardial infarction Heart disease Grandmother Breast cancer Cancer Father Myocardial infarction Hypertension Heart disease Denies family history of Ovarian cancer Prostate cancer Colorectal cancer Social History Smoking Status: Never smoker Second Hand Exposure: No; Do You Dip or Chew Tobacco: No; Tobacco Cessation Education Requested by Patient: No Hx Alcohol Use: No Hx Substance Use: No Preferred Language: Spanish Communication Ability: Effective Visual Impairment: No Limitations Hearing Ability: Normal [employer] Worker Required: No Beliefs That Will Affect Care: None marital status: / Current Living Situation: Alone current occupational status: retired Other Information That Helps Us Care for You: No Feels Safe at Home: Yes Safety Concerns: Feels Safe At This Time Childhood Exposure to Second-Hand Smoke: Yes (father) Diet Comment: regular caffeine: Yes (occasional diet pepsi ) during the past year weight has: remained stable Dental Care, Regularly: Yes Physical Activity Frequency: 1-2 Times per Week Physical Activity Frequency Comment: taking care of mother, house cleaning Seatbelt Use: always Sunscreen Use: Yes Assistive Devices: Glasses Review of Systems Review of Systems: All systems reviewed & are unremarkable except as noted in Subjective Physical Exam Constitutional: WD/WN, vitals as above Respiratory: normal respiratory effort, lungs clear to auscultation Cardiovascular: RRR, no murmur, no edema Gastrointestinal (Abdomen): normal bowel sounds, soft, nontender, no hepatosplenomegaly Musculoskeletal: no cyanosis or clubbing, extremities motor strength 5/5 Neurologic: moves all extremities and awake; not confused Psychiatric: A+Ox3, euthymic affect Results & Data Results & Data ([facility]) Vital Signs (Past 12 Hours) Vital Signs Temp Pulse Pulse Resp BP Pulse Ox O2 Del Method 03/24/22 15:16 66 98 Room Air 03/24/22 13:35 98 Room Air 03/24/22 13:35 Room Air 03/24/22 13:24 87 18 98 Room Air 03/24/22 13:14 36.8 C 87 18 106/70 98 Room Air Laboratory Results Abnormal lab results 03/24/22 03/24/22 03/24/22 Range/Units 13:35 13:35 13:35 RBC 3.77 L (3.93-5.22) M/uL Hgb 11.6 L (12.0-16.0) g/dl Lymph # (Auto) 1.16 L (1.2-3.4) K/uL PT 25.2 H (9.0-12.0) Seconds INR 2.5 H (0.9-1.1) APTT 35.0 H (21.0-31.0) Seconds Magnesium 1.6 L (1.7-2.4) mg/dl Diagnostic Findings CT ANGIOGRAPHY OF THE CHEST, PULMONARY EMBOLUS PROTOCOL CLINICAL HISTORY: Shortness of breath. Evaluate for pulmonary embolus. COMPARISON STUDY: Chest CT February 24, 2007 and chest radiograph performed earlier today. TECHNIQUE: Following IV administration of 93 mL of Optiray, helical axial images of the chest were obtained utilizing the pulmonary embolus protocol. Maximal intensity projections and sagittal and coronal reformats were viewed on an independent 3D workstation. IV contrast was administered without complication. Automated exposure control was utilized for the study. A dose lowering technique was utilized adhering to the principles of ALARA. CT DOSE: 382.70 mGy.cm FINDINGS: No pulmonary emboli are identified. Cardiac size is at upper limits of normal. There is no pericardial effusion. No enlarged thoracic lymph nodes. The central airways are patent. A subpleural right lower lobe opacity on axial image 64 of [address] of February 24, 2007. This represents scarring. Mild ground glass opacities with mosaic attenuation and possible interlobular septal thickening are present. No confluent consolidation is present. Bony thorax is unremarkable. Visualized portions of the upper abdomen are unremarkable as well. IMPRESSION: 1. No pulmonary emboli. 2. No consolidation. 3. Mild groundglass opacities with mosaic attenuation and interlobular septal thickening. This favors atelectasis however air trapping or mild pulmonary edema could appear similar.. XR chest 1V portable CLINICAL HISTORY: Dyspnea COMPARISON STUDY: Chest radiograph February 14, 2020. FINDINGS: Lung volumes are normal. No consolidation. Linear left basilar opacities are unchanged and represent atelectasis or scarring. There is no pneumothorax or pleural effusion. Cardiac size is normal. Mediastinal contours are normal. There is no evidence for pulmonary edema. IMPRESSION: No acute cardiopulmonary findings. Medications Administered ER Medications Given: Magnesium oxide 400mg PO ECG Indication: SOB/dyspnea Rate (beats per minute): 81 Rhythm: normal sinus Comparison ECG Date: from (February 14, 2020) Change: no significant change Code Status & VTE Plan Code Status Full VTE Prophylaxis Plan VTE Prophylaxis will be ordered: Yes PG Care Time/CCT Total # of Minutes Spent Total Time Spent with Patient: Total time spent is greater than 50% in coordination of care (as documented) at patient's floor/unit and/or counseling patient: Coding Level of Care Code INT OBSERVATION CARE 50M LVL 2 Diagnoses Left arm pain M79.602 Dyspnea on exertion R06.09 Hypertension I10 History of blood clots Z86.710
[2022-03-24] MEDS ORDERED: LORazepam 0.5 MG TAB PO PRN (17:25)
[2022-03-24] MEDS ORDERED: WARFARIN SOD 2.5 MG TAB PO SCH (17:45)
[2022-03-24] MEDS: MAGNESIUM SULFATE / D5W 1 GM/100 ML BAG IV SCH ×2 (18:00→19:47)
[2022-03-24] MEDS ORDERED: FAMOTIDINE 20 MG TAB PO SCH (21:00)
[2022-03-24] MEDS: CALCIUM 600MG + VIT D 400 IU TAB PO SCH (21:18)
[2022-03-25 07:14] LABS: Basophils # (auto) 0.01 K/uL (0-0.2); Basophils % (auto) 0.3 %; Eosinophils # (auto) 0.17 K/uL (0-0.50); Eosinophils % (auto) 4.9 %; Hematocrit (blood only) 30.4 % (34.1-44.9); Hemoglobin 10.2 g/dl (12.0-16.0); Immature Granulocytes # (auto) 0.01 K/uL (0.00-0.02); Immature Granulocytes % (auto) 0.3 %; Lymphocytes # (auto) 1.07 K/uL (1.2-3.4); Lymphocytes % (auto) 30.7 %; Mean Corpuscular Hgb Conc 33.6 g/dL (32.0-36.0); Mean Corpuscular Volume 92.4 fL (80.0-100.0); Mean Platelet Volume 9.6 fL (9.4-12.3); Monocytes # (auto) 0.22 K/uL (0.24-0.82); Monocytes % (auto) 6.3 %; Neutrophils % (auto) 57.5 %; Platelet Count 137 K/uL (130-400); RDW Coefficient of Variation 13.4 % (11.5-14.5); RDW Standard Deviation 44.4 fL (36.4-46.3); Red Blood Count 3.29 M/uL (3.93-5.22); White Blood Count 3.48 K/ul (4.8-10.8)
[2022-03-25 07:26] LABS: INR 2.2 (0.9-1.1); Prothrombin Time 22.4 Seconds (9.0-12.0)
[2022-03-25 07:39] LABS: BUN Creatinine Ratio 18.3 (10-20); Calcium 9.1 mg/dl (8.5-10.1); Chol HDL Ratio 2.9 (0-5); Creatinine Clr Calc Pharmacy 87.8 ml/min; Est GFR (African American) 106.3 ml/min; Est GFR (Non-African American) 91.7 ml/min; Potassium 3.5 mmol/L (3.5-5.1)
[2022-03-25] MEDS ORDERED: DULoxetine HCL 60 MG CAP PO SCH (09:00)
[2022-03-25] MEDS ORDERED: NON-FORMULARY MEDICATION (Potassium Gluconate 595 mg (99 mg) Tablet) PO SCH (09:00)
[2022-03-25] MEDS ORDERED: ASPIRIN 81 MG ECTAB PO SCH (09:00)
[2022-03-25] MEDS ORDERED: amLODIPine BESYLATE 5 MG TAB PO SCH (09:00)
[2022-03-25] MEDS ORDERED: NON-FORMULARY MEDICATION (Biotin 1 mg Tablet) PO SCH (09:00)
[2022-03-25] MEDS ORDERED: LOSARTAN POTASSIUM 50 MG TAB PO SCH (09:00)
[2022-03-25] MEDS ORDERED: hydroCHLOROthiazide 25 MG TAB PO SCH (09:00)
[2022-03-25] MEDS ORDERED: CHOLECALCIFEROL 1,000 UNITS 25 MCG TAB PO SCH (09:00)
[2022-03-25] MEDS ORDERED: ASCORBIC ACID 500 MG TAB PO SCH (09:00)
[2022-03-25] MEDS ORDERED: FERROUS SULFATE 325 MG TAB PO SCH (09:00)
[2022-03-25] MEDS ORDERED: OMEGA-3 (PURIFIED FISH OIL) 1 GM CAP PO SCH (09:00)
[2022-03-25] MEDS: CALCIUM 600MG + VIT D 400 IU TAB PO SCH (09:20)
--- NOTE | 2022-03-25 12:03 | Discharge Summary ---
Date of Service March 25, 2022 Admission HPI Per Admitting Provider Christianne Bright is a 71 year old female who presents to the ER with shortness of breath on exertion and left arm pain for the last week. Symptoms appear to be seperate. Shortness of breath on exertion mainly on walking up steps. Associated palpitations. No prior smoking, asthma or COPD history. No leg swelling, orthopnea or PND. Left arm pain intermittent. Much worse today and lasted for 15 minutes (started around 10:30am) which prompted this ER visit. No associated chest pain. No worse on movement, position, exertion or food. ER provider discussed with cardiology and recommended admission for stress test ing tomorrow. Principal Diagnosis left arm pain Discharge Exam The patient is awake, alert and oriented 3, well developed and well nourished, normocephalic and atraumatic, lying in bed and in no acute distress. HEENT--PERRL, EOMI, mucous membranes and oropharynx mildly dry Neck--supple. No JVD. No bruits. Thyroid normal, trachea midline, no adenopathy. Heart--normal S1 and S2. No murmurs, rubs or gallops. Lungs--clear bilaterally, no respiratory distress, no accessory muscle use. Abdomen--normal bowel sounds and soft. Mild epigastric and left sided abdominal pain Extremities--no cyanosis or clubbing. No edema. Dermatologic--normal skin turgor, normal color, no abnormal lymph nodes, no rash. Neurologic--cranial nerves II through XII grossly intact. Rheumatologic--normal range of motion. Psychiatric--normal affect. Discharge Data Allergies Allergy/AdvReac Type Severity Reaction Status Date / Time No Known Allergies Allergy Verified 03/24/22 15:54 Consultations 03/24/22 15:41 ED Decision to Admit Stat Ordered Studies 03/24/22 14:18 CT angio chest PE protocol Stat Hospital Course (1) Left arm pain: Now resolved Trop was normal, 2 d ECHO showed normal left EF Stress test was also normal (2) Dyspnea on exertion: No significant pathology on CT angiogram No wheezing on exam or history of reactive airway disease Resolved Stress test negative (3) Hypertension: Continue amlodipine, hydrochlorothiazide and losartan at home dosing (4) History of blood clots: Place warfarin on hold tomorrow in case of need of cardiac cath Plan d/c home Total Time Total Time Spent Total Time Spent (In Minutes): 35 Discharge Plan Discharge Items Patient Disposition: Home - Self-Care Reason For Visit: SHORTNESS OF BREATH, LEFT ARM PAIN Discharge Diagnosis: left arm pain Condition on Discharge: Good Activity: Resume your previous activity Non-emergency contact: Primary Care Provider Call non-emergency contact if: you have any medication questions Follow-up/Referrals: Cecelia Paulson DO [Primary Care Provider] - Diet: Regular Addtl Attending Provider Instructions: please make appointment to follow up with your regular PCP. Your stress test was normal Pending Studies at Discharge: No Stand-Alone Forms: [employer], Smoking Cessation Medications and DC Order Prescriptions: Continued lorazepam [Ativan] 0.5 mg tablet 0.5 mg PO DAILY PRN (Reason: anxiety) Qty: 30 0RF duloxetine 60 mg capsule,delayed release(DR/EC) 60 mg PO QAM famotidine 20 mg tablet 20 mg PO HS Calcium 600 + D(3) 600 mg calcium- 200 unit Capsule 1 cap PO BID warfarin 5 mg tablet 2.5 mg PO QPM Protocol: Dose Management Condition: Saturday Dose/Route: 2.5 mg Instruction: 0.5 x 5 mg tablets Condition: Saturday Dose/Route: 2.5 mg Instruction: 0.5 x 5 mg tablets Condition: Saturday Dose/Route: 2.5 mg Instruction: 0.5 x 5 mg tablets Condition: Saturday Dose/Route: 2.5 mg Instruction: 0.5 x 5 mg tablets Condition: Dose/Route: 2.5 mg Instruction: 0.5 x 5 mg tablets Condition: Saturday Dose/Route: 2.5 mg Instruction: 0.5 x 5 mg tablets Condition: Saturday Dose/Route: 2.5 mg Instruction: 0.5 x 5 mg tablets Protocol Text: Adjustment Start Date: Saturday02/02/22 INR Value: 2.3 INR Date: 02/02/22 Recheck Date: 03/02/22 Rx Instructions: NOW TAKES DAILY @ 1700 biotin 1 mg Tablet 1 mg PO QAM omega-3 fatty acids 1,000 mg Capsule 1,000 mg PO QAM ascorbic acid (vitamin C) [Vitamin C] 250 mg Tablet 250 mg PO QAM ferrous sulfate [iron] 325 mg (65 mg iron) Tablet 325 mg PO QAM potassium gluconate 595 mg (99 mg) Tablet 595 mg PO QAM amlodipine 5 mg tablet 5 mg PO QAM losartan 100 mg tablet 100 mg PO QAM hydrochlorothiazide 12.5 mg tablet 12.5 mg PO QAM cholecalciferol (vitamin D3) 50 mcg (2,000 unit) capsule 50 mcg PO QAM Discharge Orders: Discharge Order (Routine); Ordered 03/25/22 Ordered By: Idalia Hobbs Admission Data Admit Date/Time: 03/24/22 15:45 Attending Provider: Idalia Hobbs Admit Provider: Dennis Kelley Primary Care Provider: Cecelia Paulson Other Providers: Dennis Kelley Coding Level of Care Code D/C DAY MANAGEMENT >30 MINS Diagnoses Left arm pain M79.602 Dyspnea on exertion R06.09 Hypertension I10 History of blood clots Z86.718 Time Spent (min) 35
--- NOTE | 2022-03-26 05:57 | Electrocardiogram Report ---
Test Reason : Blood Pressure : / mmHG Vent. Rate : 081 BPM Atrial Rate : 081 BPM P-R Int : 150 ms QRS Dur : 084 ms QT Int : 374 ms P-R-T Axes : 041 -22 061 degrees QTc Int : 434 ms Normal sinus rhythm Poor R wave progression, consider anterior AK vs. lead placement vs. LVH Abnormal ECG When compared with ECG of 14-FEB-2020 17:57, No significant change was found Confirmed by Norman Gaxiola ([id number]) on 03/26/2022 5:57:23 AM Referred By: REFERRED SELF Confirmed By:Norman Gaxiola
[2022-03-26 07:45] LABS: Estimated Average Glucose 103 mg/dl; Hemoglobin A1C 5.2 % (4.5-5.6)
--- NOTE | 2022-03-26 09:04 | XCELERA ---
[id number]
== END 2022-03-25 13:18 | disposition home or self-care (01) ==
LOC: 2N 12:59 → ED 12:59 → SUATTDRO 15:45 → 2N 16:47

== ENCOUNTER 2024-06-03 18:37 | Observation (INO) ==
[2024-06-03 18:42] VITALS: TEMP 98.2
[2024-06-03 19:17] LABS: Basophils # (auto) 0.01 K/uL (0.00-0.20); Basophils % (auto) 0.2 %; Eosinophils # (auto) 0.01 K/uL (0.00-0.50); Eosinophils % (auto) 0.2 %; Hemoglobin 10.9 g/dl (12.0-16.0); Immature Granulocytes # (auto) 0.01 K/uL (0.01-0.20); Immature Granulocytes % (auto) 0.2 %; Lymphocytes # (auto) 1.05 K/uL (1.20-3.40); Lymphocytes % (auto) 20.7 %; Mean Corpuscular Hemoglobin 31.1 pg (25.0-34.0); Mean Corpuscular Hgb Conc 34.1 g/dL (32.0-36.0); Mean Corpuscular Volume 91.2 fL (80.0-100.0); Mean Platelet Volume 9.4 fL (9.4-12.4); Monocytes # (auto) 0.29 K/uL (0.11-0.59); Monocytes % (auto) 5.7 %; Platelet Count 147 K/uL (130-400); RDW Coefficient of Variation 13.2 % (11.5-14.5); RDW Standard Deviation 43.7 fL (36.4-46.3); Red Blood Count 3.51 M/uL (4.20-5.40); White Blood Count 5.07 K/ul (4.8-10.8)
[2024-06-03 19:30] LABS: BUN Creatinine Ratio 13.9 (10-20); Bilirubin,Total 0.5 mg/dl (0.2-1.0); Calcium 9.2 mg/dl (8.6-10.3); Creatinine Clr Calc Pharmacy 62.6 ml/min; Potassium 3.3 mmol/L (3.5-5.1)
[2024-06-03 19:42] LABS: Partial Thromboplastin Time 53 Seconds (21-31)
--- NOTE | 2024-06-03 19:42 | Emergency Department Note ---
Impression & Plan Rectal bleeding, Anemia, Anticoagulated on Coumadin ED Provider Note NAME: HEMAL KUMARI AGE: 73 SEX: F : 1950 ARRIVES VIA: Walk-In INFORMANT: [Patient] ED PROVIDER(S): [Tyson Alcantar MD] CHIEF COMPLAINT: Testing request HISTORY OF PRESENT ILLNESS: The patient is a 73-year-old female who states that she had a colonoscopy about 3 weeks ago. She really has had some rectal bleeding ever since, and, at times, it "squirts out". She does have a history of hemorrhoids. The patient states that she does not have any abdominal pain. She has felt a bit weak the last few days. No fever, no cough, no shortness of breath. No urinary complaints. The patient had laboratory work done today and her INR was over 8, she was referred to the ER. She takes warfarin daily. PMHx/PSHx/Social Hx: See Below PHYSICAL EXAM: GENERAL: Patient is in no acute distress. HEENT: No acute trauma, normocephalic atraumatic, mucous membranes moist, no nasal congestion. NECK: No stridor, no adenopathy, no meningismus, trachea is midline. LUNGS: Clear to auscultation bilaterally, no wheeze, no rhonchi, breath sounds equal. HEART: Without murmurs gallops or rubs, regular rate and rhythm. ABDOMEN: Soft, nontender, no peritonitis. EXTREMITIES: No cyanosis, full range of motion of all the joints without pain or difficulty. NEUROLOGIC: Oriented x 3, no acute motor or sensory deficits, no focal weakness. SKIN: No jaundice, no diaphoresis. Somewhat pale. DIFFERENTIAL DIAGNOSIS: Anemia, GI bleeding, coagulopathy, among others. EMERGENCY DEPARTMENT PROCEDURES: MEDICAL DECISION MAKING: There is no leukocytosis. The patient is anemic with a hemoglobin of 10.9. This is a 3 point drop for her looking back at some recent testing. There was a normal platelet count. INR was quite high at 8.6. She is over anticoagulated. Potassium slightly low but not in need of emergent correction. No renal failure. No significant liver enzyme elevation. On exam, the patient was not tachycardic or hypotensive, she seemed a bit pale but was resting comfortably. I did speak with the coagulation analytics consultant. The patient was given IV vitamin K, 10 mg. She was given IV Kcentra. The patient requires a hospital stay, monitoring and repeat hemoglobin testing. Based on her history, she likely is suffering from lower GI bleeding, possibly hemorrhoidal bleeding. I did speak with the patient and her family. I did speak with case management. The on-call hospitalist was consulted. Prior/Outside records/notes reviewed: None Imaging/x-ray results per my interpretation: Chronic Medical/Social conditions affecting care: Advanced age, chronic warfarin use. Care/Management discussed with: Case management, the on-call hospitalist. Coagulation analytics consultant-Dr. Ledbetter Level of care consideration(s): After review of the information above and other included data: --I believe the patient requires escalation of care to admission DISPOSITION: Admission Past Med/Surg History Problem List (Updated 06/03/24 @ 22:13 by Tyson Alcantar MD) Anticoagulated on Coumadin (Acute) Anemia (Acute) Rectal bleeding (Acute) Elevated INR Abdominal pain Nausea Diarrhea Chronic abdominal pain Renal cyst Leukopenia Lymphopenia Lymph nodes enlarged Abnormal weight loss Panic disorder Generalized anxiety disorder Family history of coronary artery disease LVH (left ventricular hypertrophy) Mesenteric artery stenosis Hx pulmonary embolism 2002 Vitamin D deficiency Chronic anticoagulation History of GI bleed secondary to hemorrhoids (2019) Hemorrhoids History of deep vein thrombosis (DVT) of lower extremity (06/2019) RLE Hyperlipidemia History of blood clots Acid reflux Anemia Benign essential hypertension Depression Medical History Mesenteric artery stenosis Leukopenia appointment scheduled with hematology 05/06/2024 LVH (left ventricular hypertrophy) follows with Dr Cagle History of pulmonary embolism Depression Generalized anxiety disorder Chronic abdominal pain Benign essential hypertension Anemia Acid reflux Renal cyst monitoring with ultrasound Dyspnea on exertion slight per patient Gallstones Rectal bleeding ongoing due to hemorrhoids Hx of deep venous thrombosis Right calf (2008), on warfarin daily Presence of IVC filter Chronic anticoagulation Surgical History Hx laparoscopic cholecystectomy (02/22/22) Attempted Laparoscopic Cholecystectomy Converted to Open Cholecystectomy with Cholangiogram, Repair Small Bowel and Colonic Enterotomy, Lysis of Dense Abdominal Adhesions Dr. Álvarez H/O colonoscopy (2019) S/P IVC filter 2002 S/P cataract extraction (12/2019) b/l eyes Hx of breast reduction, elective (2011) History of small bowel obstruction (2008) Hx of hysterectomy (1991) H/O section Family History Mother Cardiac disorder Hypertension Myocardial infarction Heart disease Grandmother Breast cancer Cancer Father Myocardial infarction Hypertension Heart disease Denies family history of Ovarian cancer Prostate cancer Colorectal cancer Social History Smoking Status: Never smoker Second Hand Exposure: Yes (father); Do You Dip or Chew Tobacco: No; Hx Alcohol Use: No Hx Substance Use: No Preferred Language: Greek Communication Ability: Effective Visual Impairment: No Limitations Hearing Ability: Normal Stakes Player Required: No Beliefs That Will Affect Care: None marital status: / Current Living Situation: Alone current occupational status: retired How many Children do You have: 1 Feels Safe at Home: Yes Childhood Exposure to Second-Hand Smoke: Yes (father) Diet: regular Diet Comment: regular caffeine: Yes (occasional diet pepsi ) during the past year weight has: remained stable Dental Care, Regularly: Yes Physical Activity Frequency: Daily Physical Activity Frequency Comment: taking care of mother, house cleaning Seatbelt Use: always Sunscreen Use: Yes Assistive Devices: None Allergies Allergies Allergy/AdvReac Type Severity Reaction Status Date / Time No Known Allergies Allergy Verified 06/03/24 22:00 Home Meds Home Medications Medication Instructions Recorded Confirmed magnesium 250 mg tablet 250 mg PO QAM 12/25/22 06/03/24 cholecalciferol (vitamin D3) 50 50 mcg PO QAM 04/29/24 06/03/24 mcg (2,000 unit) tablet (Vitamin D3) desvenlafaxine 50 mg 50 mg PO QAM 04/29/24 06/03/24 tablet,extended release 24 hr potassium chloride 20 mEq 20 meq PO QAM 04/29/24 06/03/24 tablet,extended release valsartan 80 mg tablet 80 mg PO QAM 04/29/24 06/03/24 lorazepam 1 mg tablet 1 mg PO TID PRN Anxiety 06/03/24 06/03/24 warfarin 5 mg tablet 5 mg PO 4XWK 06/03/24 06/03/24 Previous Rx's Medication Instructions Recorded pantoprazole 40 mg tablet,delayed 40 mg PO DAILY #30 tabs 05/11/24 release Results & Data (ED) Vital Signs Vital Signs - 24 hr 06/03/24 18:39 06/03/24 20:32 06/03/24 20:45 Temperature 36.8 C Temperature Source Temporal Artery Scan Pulse Rate 76 59 L Pulse Rate [Finger] 65 Respiratory Rate 18 18 Blood Pressure 166/82 H Blood Pressure [Right Arm] 153/82 H Blood Pressure Mean 110 Blood Pressure Mean [Right Arm] 105 Pulse Oximetry 99 100 Oxygen Delivery Method Room Air Sepsis Recent Fever Within 48 Hours No Sepsis New/Unexplained Change in Mental Status N/A Sepsis Action Taken by Nursing No Action Required 06/03/24 22:00 Temperature Temperature Source Pulse Rate Pulse Rate [Finger] 58 L Respiratory Rate 22 Blood Pressure Blood Pressure [Right Arm] 162/83 H Blood Pressure Mean Blood Pressure Mean [Right Arm] 109 Pulse Oximetry 100 Oxygen Delivery Method Room Air Sepsis Recent Fever Within 48 Hours Sepsis New/Unexplained Change in Mental Status Sepsis Action Taken by Snf Medications Current Medication List: was personally reviewed by me Laboratory Data Attestation: I reviewed the patient's lab results. 06/03/24 18:59 06/03/24 18:59 Lab Results 06/03/24 Range/Units 18:59 WBC 5.07 (4.8-10.8) K/ul RBC 3.51 L (4.20-5.40) M/uL Hgb 10.9 L (12.0-16.0) g/dl Hct 32.0 L (37.0-47.0) % MCV 91.2 (80.0-100.0) fL MCH 31.1 (25.0-34.0) pg MCHC 34.1 (32.0-36.0) g/dL RDW Std Deviation 43.7 (36.4-46.3) fL RDW Coeff of Lashawn 13.2 (11.5-14.5) % Plt Count 147 (130-400) K/uL MPV 9.4 (9.4-12.4) fL Immature Gran % (Auto) 0.2 % Neut % (Auto) 73.0 % Lymph % (Auto) 20.7 % [place] % (Auto) 5.7 % Eos % (Auto) 0.2 % Baso % (Auto) 0.2 % Neut # (Auto) 3.70 (1.40-6.50) K/uL Lymph # (Auto) 1.05 L (1.20-3.40) K/uL [place] # (Auto) 0.29 (0.11-0.59) K/uL Eos # (Auto) 0.01 (0.00-0.50) K/uL Baso # (Auto) 0.01 (0.00-0.20) K/uL Immature Gran # (Auto) 0.01 (0.01-0.20) K/uL PT 77.0 H (9.0-12.0) Seconds INR 8.6 H* (0.9-1.1) APTT 53 H (21-31) Seconds PTT Ratio 2.0 Sodium 143 (136-145) mmol/L Potassium 3.3 L (3.5-5.1) mmol/L Chloride 108 H (98-107) mmol/L Carbon Dioxide 29 (21-32) mmol/L Anion Gap 6 (3-11) BUN 10 (6-23) mg/dl Creatinine 0.72 (0.6-1.2) mg/dl Est Cr Clr Drug Dosing 62.6 ml/min eGFR 88.23 BUN/Creatinine Ratio 13.9 (10-20) Glucose 97 (70-99(Fasting)) mg/dl Calcium 9.2 (8.6-10.3) mg/dl Total Bilirubin 0.5 (0.2-1.0) mg/dl AST 16 (13-39) U/L ALT 8 (7-52) U/L Alkaline Phosphatase 62 (34-104) U/L Total Protein 6.0 (6.0-8.3) gm/dl Albumin 4.0 (3.4-5.0) gm/dl Globulin 2.0 L (2.5-4.0) gm/dl Albumin/Globulin Ratio 2.0 (0.9-2) Administered Medications Discontinued Medications Phytonadione 10 mg/ Dextrose 51 mls @ 102 mls/hr IV ONE ONE Stop: 06/03/24 20:24 Last Infusion: 06/03/24 21:58 Dose: Infused Documented By: Admin: 06/03/24 20:33 Dose: 102 mls/hr Documented By: IAN Prothrombin Complex Concent ( (Human) 3,000 units/ Syringe) 120 mls @ 10 mls/min IV NOW ONE; Protocol Stop: 06/03/24 20:11 Last Admin: 06/03/24 20:16 Dose: 10 mls/min Documented By: IAN Discharge Plan Visit Data Chief Complaint: Testing Request Stated Complaint: BLOOD THINNER IS UP ED Provider: Tyson Alcantar Discharge Problem: Rectal bleeding, Anemia, Anticoagulated on Coumadin Patient Disposition: Admitted As Inpatient Condition: Fair Forms Stand Alone Forms: [facility] Prescriptions Prescriptions: No Action magnesium 250 mg Tablet 250 mg PO QAM lorazepam 1 mg tablet 1 mg PO TID PRN (Reason: Anxiety) warfarin 5 mg tablet 5 mg PO 4XWK Protocol: Dose Management Condition: Saturday Dose/Route: 5 mg Instruction: 1 x 5 mg tablet Condition: Saturday Dose/Route: 2.5 mg Instruction: 0.5 x 5 mg tablets Condition: Saturday Dose/Route: 5 mg Instruction: 1 x 5 mg tablet Condition: Saturday Dose/Route: 2.5 mg Instruction: 0.5 x 5 mg tablets Condition: Dose/Route: 5 mg Instruction: 1 x 5 mg tablet Condition: Saturday Dose/Route: 2.5 mg Instruction: 0.5 x 5 mg tablets Condition: Saturday Dose/Route: 5 mg Instruction: 1 x 5 mg tablet Protocol Text: Adjustment Start Date: Saturday04/29/24 INR Value: 4.1 INR Date: 04/29/24 Recheck Date: 05/06/24 Patient Comments: 2.5mg MWF, and 5mg all other days per patient as of PAT interview Rx Instructions: TAKE 5MG EVERY SATURDAY/SATURDAY/SATURDAY/SATURDAY. cholecalciferol (vitamin D3) [Vitamin D3] 50 mcg (2,000 unit) Tablet 50 mcg PO QAM desvenlafaxine 50 mg tablet extended release 24 hr 50 mg PO QAM valsartan 80 mg tablet 80 mg PO QAM potassium chloride 20 mEq tablet extended release 20 meq PO QAM pantoprazole 40 mg tablet,delayed release (DR/EC) 40 mg PO DAILY Qty: 30 5RF Referrals Referrals: Cecelia Paulson DO [Primary Care Provider] - Discharge Problem: Anemia Qualifiers: Anemia type: unspecified type Qualified Code(s): D64.9 - Anemia, unspecified
[2024-06-03 19:50] LABS: INR 8.6 (0.9-1.1)
[2024-06-03] MEDS: PROTHROMBIN COMP CONC- KCENTRA 3,000 UNITS in SYRINGE 0 ML IV ONE (20:16)
[2024-06-03] MEDS: PHYTONADIONE 10 MG in DEXTROSE 5% 50 ML IV ONE (20:33)
--- NOTE | 2024-06-03 21:23 | History & Physical Report ---
Date of Service June 03, 2024 Assessment & Plan (1) Elevated INR: (2) Rectal bleeding: Plan 73-year-old female PMHx DVT/PE on warfarin, HTN, hyperlipidemia, LVH, ROBIN, panic disorder, and depression presenting for elevated INR per PCP. States that she had a blood drawn on the day of arrival and INR was found to be greater than 8 (baseline 2.9). ED evaluation reveals H&H 10.9/32.0, PT 77, INR 8.6, APTT 53, potassium 3.3, chloride 108, globulin 2. Started on PCC and phytonadione in ED. #Elevated INR Previous history of DVT/PE (around 2004), on warfarin at baseline. Had INR drawn day of arrival found to be greater than 8 at PCP office, was encouraged to come to ED for further evaluation. 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 BRBPR that is described as squirting in nature, no straining with bowel movements and does eat and drink normally. Hemodynamically stable. - H&H from February 2024 13.8/41.8, and admitting H&H 10.9/32 - H&H q6hr - INR 8.3 on admission, K 3.3; see above - Colonoscopy 05/11/[id number] nonpigmented and ileocolonic anastomosis and internal hemorrhoids - No imaging at time of admission; suspect that bleeding may improve after INR managed #Mood/psych- Desvenlafaxine, as needed Ativan #GERD- Omeprazole Dispo: Admit, med/sx VTE Prophylaxis: Warfarin, HOLD This document was dictated utilizing [employer]. Please excuse any grammatical errors that may be secondary to use of this software. Admission and Anticipated Discharge Date Admission Date: 06/03/2024 History of Present Illness Chief Complaint: Rectal bleeding, elevated INR Primary Care Provider: Cecelia Paulson DO 73-year-old female PMHx DVT/PE on warfarin, HTN, hyperlipidemia, LVH, ROBIN, panic disorder, and depression presenting for elevated INR per PCP. States that she had a blood drawn on the day of arrival and INR was found to be greater than 8 (baseline 2.9). She has not made any changes in her diet or medications but has noticed that over the past 5 days she has had increased rectal bleeding. States that she has had this happen before when she was having bleeding hemorrhoids, and describes nature of the bleeding to be squirting in nature. No abdominal pain but does state that her abdominal sounds are louder than usual, no N/V/C, does have loose stools at baseline. Feels as though she maybe had some increased fatigue over the past 5 days, but no additional symptoms to include chest pain, shortness of breath, palpitations, dizziness, syncope, or other signs of bleeding. Last colonoscopy was April 2024. Otherwise denying numbness or tingling, fever/chills, URI symptoms, LUTS, or lightheadedness. Has been taking medications as prescribed to include warfarin. ED evaluation reveals H&H 10.9/32.0, PT 77, INR 8.6, APTT 53, potassium 3.3, chloride 108, globulin 2. Please see Dr. Morales's attestation for adjustments/additions to treatment plan. Allergies Allergy/AdvReac Type Severity Reaction Status Date / Time No Known Allergies Allergy Verified 06/03/24 22:00 Home Medications Medication Instructions Recorded Confirmed Type magnesium 250 mg tablet 250 mg PO [facility] 12/25/22 06/03/24 History cholecalciferol (vitamin D3) 50 50 mcg PO QAM 04/29/24 06/03/24 History mcg (2,000 unit) tablet (Vitamin D3) desvenlafaxine 50 mg 50 mg PO QAM 04/29/24 06/03/24 History tablet,extended release 24 hr potassium chloride 20 mEq 20 meq PO QAM 04/29/24 06/03/24 History tablet,extended release valsartan 80 mg tablet 80 mg PO QA 04/29/24 06/03/24 History pantoprazole 40 mg tablet,delayed 40 mg PO DAILY #30 tabs 05/11/24 06/03/24 Rx release lorazepam 1 mg tablet 1 mg PO TID PRN Anxiety 06/03/24 06/03/24 History warfarin 5 mg tablet 2.5 mg PO 3XWK 06/03/24 06/03/24 History warfarin 5 mg tablet 5 mg PO 4XWK 06/03/24 06/03/24 History Past Med/Surg History Problem List (Updated 06/03/24 @ 22:13 by Tyson Alcantar MD) Anticoagulated on Coumadin (Acute) Anemia (Acute) Rectal bleeding (Acute) Elevated INR Abdominal pain Nausea Diarrhea Chronic abdominal pain Renal cyst Leukopenia Lymphopenia Lymph nodes enlarged Abnormal weight loss Panic disorder Generalized anxiety disorder Family history of coronary artery disease LVH (left ventricular hypertrophy) Mesenteric artery stenosis Hx pulmonary embolism 2002 Vitamin D deficiency Chronic anticoagulation History of GI bleed secondary to hemorrhoids (2019) Hemorrhoids History of deep vein thrombosis (DVT) of lower extremity (06/2019) RLE Hyperlipidemia History of blood clots Acid reflux Anemia Benign essential hypertension Depression Medical History Mesenteric artery stenosis Leukopenia appointment scheduled with hematology 05/06/2024 LVH (left ventricular hypertrophy) follows with Dr Cagle History of pulmonary embolism Depression Generalized anxiety disorder Chronic abdominal pain Benign essential hypertension Anemia Acid reflux Renal cyst monitoring with ultrasound Dyspnea on exertion slight per patient Gallstones Rectal bleeding ongoing due to hemorrhoids Hx of deep venous thrombosis Right calf (2008), on warfarin daily Presence of IVC filter Chronic anticoagulation Surgical History Hx laparoscopic cholecystectomy (02/22/22) Attempted Laparoscopic Cholecystectomy Converted to Open Cholecystectomy with Cholangiogram, Repair Small Bowel and Colonic Enterotomy, Lysis of Dense Abdominal Adhesions Dr. Álvarez H/O colonoscopy (2019) S/P IVC filter 2002 S/P cataract extraction (12/2019) b/l eyes Hx of breast reduction, elective (2011) History of small bowel obstruction (2008) Hx of hysterectomy (1991) H/O section Family History Mother Cardiac disorder Hypertension Myocardial infarction Heart disease Grandmother Breast cancer Cancer Father Myocardial infarction Hypertension Heart disease Denies family history of Ovarian cancer Prostate cancer Colorectal cancer Social History Smoking Status: Never smoker Second Hand Exposure: No; Do You Dip or Chew Tobacco: No; Hx Alcohol Use: No Hx Substance Use: No Preferred Language: Cambodian Communication Ability: Effective Visual Impairment: No Limitations Hearing Ability: Normal Legal Clerk Required: No Beliefs That Will Affect Care: None marital status: / Current Living Situation: Alone current occupational status: retired How many Children do You have: 1 Feels Safe at Home: Yes Safety Concerns: Feels Safe At This Time Childhood Exposure to Second-Hand Smoke: Yes (father) Diet: regular Diet Comment: regular caffeine: Yes (occasional diet pepsi ) during the past year weight has: remained stable Dental Care, Regularly: Yes Physical Activity Frequency: Daily Physical Activity Frequency Comment: taking care of mother, house cleaning Seatbelt Use: always Sunscreen Use: Yes Assistive Devices: None Review of Systems Review of Systems: All systems reviewed & are unremarkable except as noted in Subjective Physical Exam Physical Exam: General: No acute distress Skin: Warm and dry, ? pallor Head: Normocephalic, atraumatic Eyes: PERRL, conjunctivae clear, sclera non-icteric ENT: External ear and ear canal without swelling; nose atraumatic; good dentition, tongue normal appearance, pharynx normal Neck: Supple, no LAD; no JVD Cardio: RRR, no M/G/R, S1 and S2 normal Resp: No respiratory distress, Lungs CTA in all lobes bilaterally, no wheezes, rales, or rhonchi Abdomen: Soft, symmetric, nontender; No masses or hepatosplenomegaly; Bowel sounds normoactive MSK: No deformities, full ROM throughout; pulses palpable and equal; no edema. Neuro: Awake, alert; CN grossly intact Psych: Appropriate mood and affect; good judgement and insight. Results & Data Results & Data Vital Signs (Past 12 Hours) Vital Signs Temp Pulse Pulse Resp BP BP Pulse Ox 06/03/24 20:45 59 L 06/03/24 20:32 65 18 153/82 H 100 06/03/24 18:39 36.8 C 76 18 166/82 H 99 O2 Del Method 06/03/24 20:45 06/03/24 20:32 Room Air 06/03/24 18:39 Laboratory Results 06/03/24 18:59 WBC 5.07 RBC 3.51 L Hgb 10.9 L Hct 32.0 L MCV 91.2 MCH 31.1 MCHC 34.1 RDW Std Deviation 43.7 RDW Coeff of Lashawn 13.2 Plt Count 147 MPV 9.4 Immature Gran % (Auto) 0.2 Neut % (Auto) 73.0 Lymph % (Auto) 20.7 [place] % (Auto) 5.7 Eos % (Auto) 0.2 Baso % (Auto) 0.2 Neut # (Auto) 3.70 Lymph # (Auto) 1.05 L [place] # (Auto) 0.29 Eos # (Auto) 0.01 Baso # (Auto) 0.01 Immature Gran # (Auto) 0.01 PT 77.0 H INR 8.6 H* APTT 53 H PTT Ratio 2.0 Sodium 143 Potassium 3.3 L Chloride 108 H Carbon Dioxide 29 Anion Gap 6 BUN 10 Creatinine 0.72 Est Cr Clr Drug Dosing 62.6 eGFR 88.23 BUN/Creatinine Ratio 13.9 Glucose 97 Calcium 9.2 Total Bilirubin 0.5 AST 16 ALT 8 Alkaline Phosphatase 62 Total Protein 6.0 Albumin 4.0 Globulin 2.0 L Albumin/Globulin Ratio 2.0 Medications Administered PCC 3,000 units IV Phytonadione 10mg IV Code Status & VTE Plan Code Status Full Supervising Physician Co-Signing Physician Notes Patient seen and examined, chart reviewed, case discussed with ERENDIRA Sy and I agree with the assessment and plan as above. In brief, patient is a 73yo female with history of DVT/PE on Coumadin anticoagulation presenting with elevated INR, rectal bleeding (INR =8.6 on arrival) Patient received Vitamin K 10mg IV as well as PCC 3000u for Coumadin reversal Colonoscopy on 05/11/23 with internal hemorrhoids, multiple biopsies performed in the colon On exam patient is afebrile, HD stable, non-toxic in appearance MMM, neck supple +S1/S2, regular, no m/r/g Lungs - CTA Abd - soft, NT/ND Ext - warm, well perfused Labs and images reviewed Hgb downtrending 11.3 --> 10.9 --> 9.8 INR now 1.1 on repeat Assessment/Plan Rectal bleeding in setting of supratherapeutic INR=8.6 s/p reversal with Vitamin K and PCC No further bleeding episodes noted from patient since arriving to the ER H/H is downtrending Patient remains HD stable -Continue to hold Coumadin for now - INR=1.1, would consider resuming after no additional bleeding reported -Consider GI consultation if bleeding resumes -K repletion -Remainder as above PG Care Time/CCT Total # of Minutes Spent Total Time Spent with Patient: Total time spent is greater than 50% in coordination of care (as documented) at patient's floor/unit and/or counseling patient: Coding Level of Care Code 24000 INT INP/OBS CARE 3/75MIN Diagnoses Elevated INR R79.1 Rectal bleeding K62.5
[2024-06-03] MEDS ORDERED: ONDANSETRON INJ 2 MG/ML 2 ML VIAL IV PRN (23:20)
[2024-06-03] MEDS ORDERED: MELATONIN 3 MG TAB PO PRN (23:20)
[2024-06-03] MEDS ORDERED: POLYETHYLENE (MIRALAX) 17 GM PACK PO PRN (23:20)
[2024-06-03 23:33] VITALS: O2SAT 98
[2024-06-03 23:51] LABS: INR 1.1 (0.9-1.1); Prothrombin Time 11.9 Seconds (9.0-12.0)
[2024-06-04 01:17] LABS: Hematocrit (blood only) 29.2 % (37.0-47.0); Hemoglobin 9.8 g/dl (12.0-16.0)
[2024-06-04] MEDS: POTASSIUM CHLORIDE CRTAB 20 MEQ TABCR PO STA (05:51)
[2024-06-04 07:11] VITALS: RESP 15
[2024-06-04] MEDS: PANTOprazole 40 MG TAB PO SCH (09:28)
[2024-06-04] MEDS: LORazepam 1 MG TAB PO PRN (09:28)
[2024-06-04 10:06] LABS: Hematocrit (blood only) 34.2 % (37.0-47.0); Hemoglobin 11.6 g/dl (12.0-16.0); Mean Corpuscular Hemoglobin 30.7 pg (25.0-34.0); Mean Corpuscular Hgb Conc 33.9 g/dL (32.0-36.0); Mean Corpuscular Volume 90.5 fL (80.0-100.0); Platelet Count 138 K/uL (130-400); RDW Coefficient of Variation 13.2 % (11.5-14.5); RDW Standard Deviation 42.7 fL (36.4-46.3); Red Blood Count 3.78 M/uL (4.20-5.40); White Blood Count 4.53 K/ul (4.8-10.8)
[2024-06-04 10:26] LABS: BUN Creatinine Ratio 11.3 (10-20); Calcium 9.6 mg/dl (8.6-10.3); Creatinine Clr Calc Pharmacy 72.7 ml/min; Potassium 3.6 mmol/L (3.5-5.1)
--- NOTE | 2024-06-04 11:26 | Discharge Summary ---
Discharge Summary Date of Service June 04, 2024 Principal Dx & Hospital Course #1 = Principal Diagnosis (1) Elevated INR: (2) Rectal bleeding: Plan 73-year-old female PMHx DVT/PE on warfarin, HTN, hyperlipidemia, LVH, ROBIN, panic disorder, and depression presenting for elevated INR per PCP. States that she had a blood drawn on the day of arrival and INR was found to be greater than 8 (baseline 2.9). ED evaluation reveals H&H 10.9/32.0, PT 77, INR 8.6, APTT 53, potassium 3.3, chloride 108, globulin 2. Started on PCC and phytonadione in ED. #Elevated INR Previous history of DVT/PE (around 2004), on warfarin at baseline. Had INR drawn day of arrival found to be greater than 8 at PCP office, was encouraged to come to ED for further evaluation. Noticed rectal bleeding which is squirting in nature starting around 5 days [employer] DES[employer]GER. -INR improved to 1.1, CBC/BMP stable 06/04. -Supratherapeutic INR likely secondary to patient's mental health medications recently starting (fluvoxamine, desvenlafaxine). Fluvoxamine was discontinued but she has been taking desvenlafaxine which can still interact w/ warfarin and increase INR. -Changed Warfarin dosage to 2.5mg daily. Advised patient to not take 5mg Warfarin daily anymore. -Patient to follow up w/ PCP for INR check in 1 week and adjustments to her warfarin as necessary -Consider switching to Eliquis, also consider IVC filter removal. - defer to PCP #Rectal bleeding Ongoing since colonoscopy (04/2024) occurring in bouts, most recently starting 5 days IC DESIGN [employer]GER, history of bleeding hemorrhoids in the past and feels as though this is similar. BRBPR that is described as squirting in nature, no straining with bowel movements and does eat and drink normally. Hemodynamically stable. -Likely secondary to internal hemorrhoids -CBC stable prior to d/c. -Resolved when INR normalized. -Recent CN 05/11/24 - nonpigmented and ileocolonic anastomosis and internal hemorrhoids #Mood/psych- Desvenlafaxine, as needed Ativan #GERD- Omeprazole Discharged home 06/04. Advised close follow up with PCP within 1 week for recheck of INR and Warfarin dosing. Admission HPI Per Admitting Provider 73-year-old female PMHx DVT/PE on warfarin, HTN, hyperlipidemia, LVH, ROBIN, panic disorder, and depression presenting for elevated INR per PCP. States that she had a blood drawn on the day of arrival and INR was found to be greater than 8 (baseline 2.9). She has not made any changes in her diet or medications but has noticed that over the past 5 days she has had increased rectal bleeding. States that she has had this happen before when she was having bleeding hemorrhoids, and describes nature of the bleeding to be squirting in nature. No abdominal pain but does state that her abdominal sounds are louder than usual, no N/V/C, does have loose stools at baseline. Feels as though she maybe had some increased fatigue over the past 5 days, but no additional symptoms to include chest pain, shortness of breath, palpitations, dizziness, syncope, or other signs of bleeding. Last colonoscopy was April 2024. Otherwise denying numbness or tingling, fever/chills, URI symptoms, LUTS, or lightheadedness. Has been taking medications as prescribed to include warfarin. ED evaluation reveals H&H 10.9/32.0, PT 77, INR 8.6, APTT 53, potassium 3.3, chloride 108, globulin 2. Please see Dr. Morales's attestation for adjustments/additions to treatment plan. Discharge Exam Constitutional tearful, anxious Respiratory breathing unlabored Cardiovascular well perfused Psychiatric tearful, anxious, wanting to go home Discharge Plan Discharge Items Patient Disposition: Home - Self-Care Reason For Visit: ELEVATED INR Discharge Diagnosis: Supratherapeutic INR, Internal Hemorrhoids Condition on Discharge: Fair Activity: Resume your previous activity Non-emergency contact: Primary Care Provider Call non-emergency contact if: you have any medication questions and your symptoms worsen Follow-up/Referrals: Cecelia Paulson, [Primary Care Provider] - Diet: Regular Addtl Attending Provider Instructions: Ms. Bright, You were recently hospitalized for having rectal bleeding and an INR that was way above your baseline. This has been corrected and your rectal bleeding has resolved. After review of your chart, it seems your mental health medications have been interfering with your warfarin which is what caused your INR to go so high. Please see recommendations below regarding your discharge. 1. You may resume your Warfarin this afternoon. Please only take 2.5mg daily until seen by your PCP. 2. Please follow up with your PCP within a week so that your INR can be rechecked. 3. You may continue on your Desvenlafaxine. 4. Your rectal bleeding was likely secondary to your internal hemorrhoids. It seems your bleeding has now resolved with your INR correction. If you experience this in the future, please contact your PCP for recommendations regarding treatment. 5. You may resume the remainder of your medications. If you develop any spontaneous bleeding, chest pain, shortness of breath, or lower extremity swelling please report back to the ED for further care. Sincerely, Divine Prasad PA-C Pending Studies at Discharge: No Stand-Alone Forms: [facility] [employer], Smoking Cessation Medications and DC Order Prescriptions: New warfarin 2.5 mg tablet 2.5 mg PO DAILY Qty: 30 0RF Continued magnesium 250 mg Tablet 250 mg PO QAM lorazepam 1 mg tablet 1 mg PO TID PRN (Reason: Anxiety) cholecalciferol (vitamin D3) [Vitamin D3] 50 mcg (2,000 unit) Tablet 50 mcg PO QAM desvenlafaxine 50 mg tablet extended release 24 hr 50 mg PO QAM valsartan 80 mg tablet 80 mg PO QAM potassium chloride 20 mEq tablet extended release 20 meq PO QAM pantoprazole 40 mg tablet,delayed release (DR/EC) 40 mg PO DAILY Qty: 30 5RF Discontinued warfarin 5 mg tablet 5 mg PO 4XWK Protocol: Dose Management Condition: Saturday Dose/Route: 5 mg Instruction: 1 x 5 mg tablet Condition: Saturday Dose/Route: 2.5 mg Instruction: 0.5 x 5 mg tablets Condition: Saturday Dose/Route: 5 mg Instruction: 1 x 5 mg tablet Condition: Saturday Dose/Route: 2.5 mg Instruction: 0.5 x 5 mg tablets Condition: Dose/Route: 5 mg Instruction: 1 x 5 mg tablet Condition: Saturday Dose/Route: 2.5 mg Instruction: 0.5 x 5 mg tablets Condition: Saturday Dose/Route: 5 mg Instruction: 1 x 5 mg tablet Protocol Text: Adjustment Start Date: Saturday04/29/24 INR Value: 4.1 INR Date: 04/29/24 Recheck Date: 05/06/24 Patient Comments: 2.5mg MWF, and 5mg all other days per patient as of PAT interview Rx Instructions: TAKE 5MG EVERY SATURDAY/SATURDAY/SATURDAY/SATURDAY. warfarin 5 mg Tablet 2.5 mg PO 3XWK Rx Instructions: TAKE 1/2 TABLET EVERY SATURDAY/SATURDAY/SATURDAY. Discharge Orders: Discharge Order (Routine); Ordered 06/04/24 Ordered By: Divine Prasad Admission Data Admit Date/Time: 06/03/24 21:45 Attending Provider: Aime Macias Admit Provider: Rere Morales Primary Care Provider: Cecelia Paulson. Other Providers: Rere Morales Other Interventions: Discharge Summary Assessment (RN) Last Done: 06/04/24 11:38 Hospital Stay Data Consultations 06/03/24 20:09 ED Decision to Admit Stat Pending Results Patient Have Any Pending Studies at Discharge: No Discharge Instructions Given to Patient (Per Discharging Provider) Ms. Bright, Ghulam were recently hospitalized for having rectal bleeding and an INR that was way above your baseline. This has been corrected and your rectal bleeding has resolved. After review of your chart, it seems your mental health medications have been interfering with your warfarin which is what caused your INR to go so high. Please see recommendations below regarding your discharge. 1. You may resume your Warfarin this afternoon. Please only take 2.5mg daily until seen by your PCP. 2. Please follow up with your PCP within a week so that your INR can be rechecked. 3. You may continue on your Desvenlafaxine. 4. Your rectal bleeding was likely secondary to your internal hemorrhoids. It seems your bleeding has now resolved with your INR correction. If you experience this in the future, please contact your PCP for recommendations regarding treatment. 5. You may resume the remainder of your medications. If you develop any spontaneous bleeding, chest pain, shortness of breath, or lower extremity swelling please report back to the ED for further care. Sincerely, Divine Prasad PA-C Total Time Total Time Spent Total Time Spent (In Minutes): 40 Total Time Includes: Examination of the Patient, Discharge Planning and Medication Reconciliation Coding Level of Care Code 37535 INP/OBS DISCH >30 MIN Diagnoses Elevated INR R79.1 Rectal bleeding K62.5
[2024-06-04 11:40] VITALS: BP 135/94; PULSE 88
== END 2024-06-04 11:38 | disposition home or self-care (01) ==
LOC: EDINP 18:37 → ED 18:37 → SUATTDRO 21:45 → EDINP 23:20